=== PATIENT | male | born 1940 | race Hispanic/Latino ===

== ENCOUNTER 2017-11-03 07:45 | Emergency (ER) | payer OTHER ==
--- NOTE | 2017-11-03 08:37 | RAD REPORT ---
EXAM DESCRIPTION: CT - Head Brain Wo Cont - 11/03/2017 8:30 am CLINICAL HISTORY: Dizziness COMPARISON: 2013 TECHNIQUE: Computed axial tomography of the head was obtained. IV contrast was not requested. All CT scans are performed using dose optimization technique as appropriate and may include automated exposure control or mA/KV adjustment according to patient size. FINDINGS: An intracranial bleed is not seen . The ventricles are normal in caliber. No extra-axial fluid collection is noted. 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 Cerebral atrophy is noted. Fluid within the sinuses/ mastoids is not seen. IMPRESSION: No acute intracranial abnormality is seen. If patient's symptoms persist MRI of the bra in would be recommended.
[2017-11-03 08:48] LABS: Absolute Lymphocytes (CBC) 2.1 K/uL (0.7-4.9); Absolute Monocytes 0.4 K/uL (0.1-1.3); Absolute Neutrophil 6.4 K/uL (1.8-8.0); Basophils % 0.5 % (0-1.3); Hematocrit 45.5 % (39.6-49.0); MCH 31.7 pg (27.0-35.0); MCV 90.4 fL (80-100); MPV 9.3 fL (7.6-11.3); Monocytes % 4.6 % (3.3-12.3); RBC Red Blood Cell Count 5.03 M/uL (4.33-5.43)
[2017-11-03 09:00] LABS: Protime INR 0.93
[2017-11-03 09:04] LABS: Albumin 4.3 g/dL (3.2-5.5); Bilirubin Direct 0.1 mg/dL (0-0.2); Bilirubin Total 0.5 mg/dL (0.3-1.2); Magnesium 1.5 mg/dL (1.8-2.5); Protein, Total 7.8 g/dL (6.0-8.3)
[2017-11-03 09:05] LABS: CKMB Creatine Kinase MB 1.9 ng/ml (0.3-4.0)
--- NOTE | 2017-11-03 09:09 | RAD REPORT ---
EXAM DESCRIPTION: MRI - Brain Wo Cont - 11/03/2017 8:55 am CLINICAL HISTORY: Dizziness COMPARISON: 2007 MRI TECHNIQUE: Axial, sagittal, and coronal magnetic images of the brain were obtained. Contrast was not requested FINDINGS: 3 centimeter area of abnormal signal within the right cerebellum is compatible with an old infarct. Mild to moderate signal within periventricular, deep and subcortical white matter likely re present ischemic changes secondary to small vessel disease. Diffusion-weighted/ADC mapping does not reveal evidence of acute infarction. The ventricles are normal caliber. An extra-axial fluid collection is not present The sinuses and mastoids are clear. IMPRESSION: Old right cerebellar infarct. No acute intracranial abnormality is seen
--- NOTE | 2017-11-03 09:10 | RAD REPORT ---
EXAM DESCRIPTION: Yossi Single View11/03/2017 8:30 am CLINICAL HISTORY: Cough COMPARISON: 2014 FINDINGS: A 10 millimeter nodular opacity overlies the left base. Right lung appears clear the hear t is normal size IMPRESSION: A 10 millimeter nodular opacity overlying the left base may represent a nipple shadow or pulmonary nodule. It is recommended that the patient have frontal and oblique views of the chest wit h a left nipple marker for further evaluation
[2017-11-03] MEDS ORDERED: FAMOTIDINE 20 MG/2 ML VIAL IV ONE (09:26)
[2017-11-03] MEDS ORDERED: ONDANSETRON 4 MG/2 ML VIAL ONE (09:26)
[2017-11-03] MEDS ORDERED: MAGNESIUM SULFATE 1 gm IVPB 1 GM/100 ML BAG IV ONE (09:26)
[2017-11-03] MEDS ORDERED: ASPIRIN 81 MG CHEWABLE TABLET ONE (09:26)
[2017-11-03] MEDS ORDERED: NA CHLORIDE 0.9% 1,000 ML ONE (09:26)
[2017-11-03] MEDS ORDERED: MECLIZINE HCL 12.5 MG TAB ONE (09:26)
[2017-11-03] MEDS ORDERED: NA CHLORIDE 0.9% 500 ML ONE (09:26)
[2017-11-03 10:16] LABS: Urine Blood NEGATIVE (NEG); Urine Glucose NEGATIVE (NEG); Urine Protein NEGATIVE (NEG); Urine Specific Gravity 1.025 (1.005-1.030); Urine pH 5.5 (5.0-7.0)
--- NOTE | 2017-11-03 10:21 | RAD REPORT ---
EXAM DESCRIPTION: VASCarotid Artery Bilateral11/03/2017 9:31 am CLINICAL HISTORY: Syncope COMPARISON: None FINDINGS: The velocity of the right internal carotid artery equals 74 cm/sec. The right ICA/CCA rati o 0.9 The velocity of the left internal carotid artery equals 94 cm/sec. The left ICA/CCA ratio 1 Mild to moderate plaque is present within the carotid arteries. The vertebral arteries demonstrate antegrade flow IMPRESSION: Mild to moderate plaque within the carotid arteries without evidence of a hemodynamicall y significant stenosis
--- NOTE | 2017-11-03 10:46 | EDPHYS ---
Physician Documentation [facility] Name: Gerald Lui Age: 77 yrs Sex: Male : 1940 Arrival Date: 11/03/2017 Time: 07:49 Bed 5 Private MD: None, None ED Physician Ezio Stanley HPI: 11/03 08:14 This 77 yrs old Male presents to ER via Ambulatory with complaints of prem Nausea/Vomiting, Dizziness. 08:14 The patient presents to the emergency department with nausea, vomiting, that is prem intermittent. Onset: The symptoms/episode began/occurred 3 day(s) ago. Possible causes: unknown. The symptoms are aggravated by nothing. The symptoms are alleviated by remaining still. Associated signs and symptoms: Pertinent positives: nausea, vomiting. Severity of symptoms: At their worst the symptoms were mild in the emergency department the symptoms are unchanged. The patient has experienced similar episodes in the past, a few times. Historical: - Allergies: 08:09 No Known Allergies; sv - Home Meds: 08:09 glimepiride 4 mg Oral tab 1 tab once daily [Active]; lisinopril 2.5 mg Oral tab 1 tab sv once daily [Active]; Metformin Oral [Active]; latonoprost [Active]; Centrum Silver oral oral [Active]; - PMHx: 08:09 Diabetes - NIDDM; Hypertension; High Cholesterol; sv - PSHx: 08:09 Appendectomy; sv - Immunization history:: Adult Immunizations up to date. - Social history:: Smoking status: Patient/guardian denies using tobacco. ROS: 08:19 Constitutional: Negative for fever, chills, and weight loss, Eyes: Negative for injury, prem pain, redness, and discharge, ENT: Negative for injury, pain, and discharge, Neck: Negative for injury, pain, and swelling, Cardiovascular: Negative for chest pain, palpitations, and edema, Respiratory: Negative for shortness of breath, cough, wheezing, and pleuritic chest pain, Back: Negative for injury and pain, : Negative for injury, bleeding, discharge, and swelling, MS/Extremity: Negative for injury and deformity, Skin: Negative for injury, rash, and discoloration, Neuro: Negative for headache, weakness, numbness, tingling, and seizure, Psych: Negative for depression, anxiety, suicide ideation, homicidal ideation, and hallucinations, Allergy/Immunology: Negative for hives, rash, and allergies, Endocrine: Negative for neck swelling, polydipsia, polyuria, polyphagia, and marked weight changes, Hematologic/Lymphatic: Negative for swollen nodes, abnormal bleeding, and unusual bruising. 08:19 Abdomen/GI: Positive for abdominal pain, nausea and vomiting. Exam: 08:19 Constitutional: This is a well developed, well nourished patient who is awake, alert, prem and in no acute distress. Head/Face: Normocephalic, atraumatic. Eyes: Pupils equal round and reactive to light, extra-ocular motions intact. Lids and lashes normal. Conjunctiva and sclera are non-icteric and not injected. Cornea within normal limits. Periorbital areas with no swelling, redness, or edema. ENT: Nares patent. No nasal discharge, no septal abnormalities noted. Tympanic membranes are normal and external auditory canals are clear. Oropharynx with no redness, swelling, or masses, exudates, or evidence of obstruction, uvula midline. Mucous membranes moist. Neck: Trachea midline, no thyromegaly or masses palpated, and no cervical lymphadenopathy. Supple, full range of motion without nuchal rigidity, or vertebral point tenderness. No Meningismus. Chest/axilla: Normal chest wall appearance and motion. Nontender with no deformity. No lesions are appreciated. Cardiovascular: Regular rate and rhythm with a normal S1 and S2. No gallops, murmurs, or rubs. Normal PMI, no JVD. No pulse deficits. Respiratory: Lungs have equal breath sounds bilaterally, clear to auscultation and percussion. No rales, rhonchi or wheezes noted. No increased work of breathing, no retractions or nasal flaring. Abdomen/GI: Soft, non-tender, with normal bowel sounds. No distension or tympany. No guarding or rebound. No evidence of tenderness throughout. Back: No spinal tenderness. No costovertebral tenderness. Full range of motion. Male : Normal genitalia with no discharge or lesions. Skin: Warm, dry with normal turgor. Normal color with no rashes, no lesions, and no evidence of cellulitis. MS/ Extremity: Pulses equal, no cyanosis. Neurovascular intact. Full, normal range of motion. Neuro: Awake and alert, GCS 15, oriented to person, place, time, and situation. Cranial nerves II-XII grossly intact. Motor strength 5/5 in all extremities. Sensory grossly intact. Cerebellar exam normal. Normal gait. Psych: Awake, alert, with orientation to person, place and time. Behavior, mood, and affect are within normal limits. Vital Signs: 08:09 BP 118 / 67; Pulse 59; Resp 18; Temp 98.7; Pulse Ox 98% ; Weight 81.65 kg; Pain 0/10; sv 10:00 BP 139 / 66; Pulse 52; Resp 13; Pulse Ox 99% on R/A; Pain 0/10; ch 11:27 BP 132 / 88; Pulse 54; Resp 16; Temp 98.3; Pulse Ox 99% on R/A; Pain 0/10; ch MDM: 07:[address] [facility] 08:20 Data reviewed: vital signs, nurses notes, lab test result(s), EKG, radiologic studies, [facility] CT scan, doppler, MRI, plain films. 11/03 07:54 Order name: Basic Metabolic Panel; Complete Time: 09:13 [facility] 11/03 07:54 Order name: BNP; Complete Time: 09:13 [facility] 11/03 07:54 Order name: CBC with Diff; Complete Time: 09:13 [facility] 11/03 07:54 Order name: Ckmb; Complete Time: 09:13 [facility] 11/03 07:54 Order name: CPK; Complete Time: 09:13 [facility] 11/03 07:54 Order name: LFT's; Complete Time: 09:13 [facility] 11/03 07:54 Order name: Magnesium; Complete Time: 09:13 [facility] 11/03 07:54 Order name: PT-INR; Complete Time: 09:13 [facility] 11/03 07:54 Order name: Ptt, Activated; Complete Time: 09:13 [facility] 11/03 07:54 Order name: Troponin (emerg Dept Use Only); Complete Time: 09:13 [facility] 11/03 07:54 Order name: XRAY Chest (1 view); Complete Time: 09:13 [facility] 11/03 07:54 Order name: Lipase; Complete Time: 09:13 [facility] 11/03 07:54 Order name: Urine Culture [facility] 11/03 10:02 Order name: Urine Dipstick--Ancillary (enter results); Complete Time: 10:43 ag 11/03 07:54 Order name: EKG; Complete Time: 07:55 [facility] 11/03 07:54 Order name: Cardiac monitoring; Complete Time: 10:26 [facility] 11/03 07:54 Order name: EKG - Nurse/Tech; Complete Time: 09:09 [facility] 11/03 07:54 Order name: IV Saline Lock; Complete Time: 09:09 [facility] 11/03 07:54 Order name: Labs collected and sent; Complete Time: 09:09 [facility] 11/03 07:54 Order name: O2 Per Protocol; Complete Time: 08:12 [facility] 11/03 07:54 Order name: CT Head Brain wo Cont; Complete Time: 09:13 [facility] 11/03 08:14 Order name: Brain Wo Cont MRI; Complete Time: 09:13 [facility] 11/03 08:14 Order name: US Carotid Artery Bilateral; Complete Time: 10:43 [facility] 11/03 07:54 Order name: O2 Sat Monitoring; Complete Time: 08:12 [facility] 11/03 07:54 Order name: Urine Dipstick-Ancillary (obtain specimen); Complete Time: 10:17 [facility] Administered Medications: 09:45 Drug: NS 0.9% 500 ml Route: IV; Rate: bolus; Site: right antecubital; ch 10:25 Follow up: IV Status: Completed infusion; IV Intake: 500ml ch 09:45 Drug: NS 0.9% 1000 ml Route: IV; Rate: 125 ml/hr; Site: right antecubital; ch 09:45 Drug: Magnesium Sulfate 1 grams Route: IVPB; Infused Over: 1 hrs; Site: right ch antecubital; 09:45 Drug: Aspirin 162 mg Route: PO; ch 10:25 Follow up: Response: No adverse reaction; Marked relief of symptoms ch 09:45 Drug: Meclizine 25 mg Route: PO; ch 10:25 Follow up: Response: No adverse reaction ch 09:50 Drug: Pepcid 20 mg Route: IVP; Site: right antecubital; ch 10:26 Follow up: Response: No adverse reaction; Marked relief of symptoms Disposition: 11/03/17 10:46 Discharged to Home. Impression: Nausea and vomiting, Dizziness and giddiness, Type 2 diabetes mellitus, Vertiginous syndromes in diseases classified elsewhere, unspecified ear, Hypomagnesemia. - Condition is Stable. - Discharge Instructions: Benign Positional Vertigo, Type 2 Diabetes Mellitus, Adult, Dizziness, Hypomagnesemia, Nausea and Vomiting, Vertigo, Vertigo, [id number], Aspirin and Your Heart, Type 2 Diabetes Mellitus, Adult, Aook-pi-Wibu, Dizziness, Bzrx-em-[id number]. - Prescriptions for Meclizine 25 mg Oral Tablet - take 1 tablet by ORAL route every 8 hours As needed; 30 tablet. Pepcid 20 mg Oral Tablet - take 1 tablet by ORAL route every 12 hours for 10 days; 20 tablet. Zofran 4 mg Oral Tablet - take 1 tablet by ORAL route every 12 hours As needed; 20 tablet. - Medication Reconciliation Form, Thank You Letter, Antibiotic Education, Prescription Opioid Use form. - Follow up: Private Physician; When: 2 - 3 days; Reason: Recheck today's complaints, Continuance of care, Re-evaluation by your physician. Follow up: Presley Diaz MD; When: 2 - 3 days; Reason: Recheck today's complaints, Re-evaluation by your physician. - Problem is new. - Symptoms have improved. Signatures: Dispatcher [employer] EDPat Camilo RN RN ch Verde, Stephanie, RN RN sv Anderson, Corey, MD MD cha Corrections: (The following items were deleted from the chart) 10:47 10:46 11/03/2017 10:46 Discharged to Home. Impression: Nausea and vomiting; Dizziness prem and giddiness; Type 2 diabetes mellitus; Vertiginous syndromes in diseases classified elsewhere, unspecified ear. Condition is Stable. Forms are Medication Reconciliation Form, Thank You Letter, Antibiotic Education, Prescription Opioid Use. Follow up: Private Physician; When: 2 - 3 days; Reason: Recheck today's complaints, Continuance of care, Re-evaluation by your physician. Follow up: Presley Diaz; When: 2 - 3 days; Reason: Recheck today's complaints, Re-evaluation by your physician. Problem is new. Symptoms have improved. prem 11:55 10:47 11/03/2017 10:46 Discharged to Home. Impression: Nausea and vomiting; Dizziness ch and giddiness; Type 2 diabetes mellitus; Vertiginous syndromes in diseases classified elsewhere, unspecified ear; Hypomagnesemia. Condition is Stable. Discharge Instructions: Benign Positional Vertigo, Type 2 Diabetes Mellitus, Adult, Dizziness, Nausea and Vomiting, Vertigo, Vertigo, [id number], Aspirin and Your Heart, Type 2 Diabetes Mellitus, Adult, Auiq-eq-Gnmh, Dizziness, Aiab-wc-Pbnr. Prescriptions for Meclizine 25 mg Oral Tablet - take 1 tablet by ORAL route every 8 hours As needed; 30 tablet, Pepcid 20 mg Oral Tablet - take 1 tablet by ORAL route every 12 hours for 10 days; 20 tablet, Zofran 4 mg Oral Tablet - take 1 tablet by ORAL route every 12 hours As needed; 20 tablet. and Forms are Medication Reconciliation Form, Thank You Letter, Antibiotic Education, Prescription Opioid Use. Follow up: Private Physician; When: 2 - 3 days; Reason: Recheck today's complaints, Continuance of care, Re-evaluation by your physician. Follow up: Presley Diaz; When: 2 - 3 days; Reason: Recheck today's complaints, Re-evaluation by your physician. Problem is new. Symptoms have improved. prem
--- NOTE | 2017-11-03 10:46 | ER ---
Nurse's Notes [facility] Name: Gerald Lui Age: 77 yrs Sex: Male : 1940 Arrival Date: 11/03/2017 Time: 07:49 Bed 5 Private MD: None, None Diagnosis: Nausea and vomiting;Dizziness and giddiness;Type 2 diabetes mellitus;Vertiginous syndromes in diseases classified elsewhere, unspecified ear;Hypomagnesemia Presentation: 11/03 07:59 Presenting complaint: Patient states: dizziness and nausea x1 day. Denies sv vomiting/diarrhea/constipation/abd pain. [id number]. Transition of care: patient was not received from another setting of care. Onset of symptoms was November 02, 2017. 07:59 Method Of Arrival: Ambulatory sv 07:59 Acuity: JASS 3 sv 08:00 Risk Assessment: Do you want to hurt yourself or someone else? Patient reports no sv desire to harm self or others. Initial Sepsis Screen: Does the patient meet any 2 criteria? No. Patient's initial sepsis screen is negative. Does the patient have a suspected source of infection? No. Patient's initial sepsis screen is negative. Care prior to arrival: None. Historical: - Allergies: 08:09 No Known Allergies; sv - Home Meds: 08:09 glimepiride 4 mg Oral tab 1 tab once daily [Active]; lisinopril 2.5 mg Oral tab 1 tab sv once daily [Active]; Metformin Oral [Active]; latonoprost [Active]; Centrum Silver oral oral [Active]; - PMHx: 08:09 Diabetes - NIDDM; Hypertension; High Cholesterol; sv - PSHx: 08:09 Appendectomy; sv - Immunization history:: Adult Immunizations up to date. - Social history:: Smoking status: Patient/guardian denies using tobacco. Screenin:10 Abuse screen: Denies threats or abuse. Denies injuries from another. Nutritional sv screening: No deficits noted. Tuberculosis screening: No symptoms or risk factors identified. Fall Risk None identified. Assessment: 08:05 General: Appears in no apparent distress. comfortable, Behavior is calm, cooperative, sv appropriate for age. Pain: Denies pain. Neuro: Level of Consciousness is awake, alert, obeys commands, Oriented to person, place, time, situation, Moves all extremities. Full function Gait is steady, Speech is normal. Respiratory: Respiratory effort is even, unlabored, Respiratory pattern is regular, symmetrical. GI: Abdomen is flat, Reports nausea. Derm: Skin is normal. Musculoskeletal: Range of motion: intact in all extremities. 10:17 Reassessment: Patient appears in no apparent distress at this time. Patient and/or ch family updated on plan of care and expected duration. Pain level reassessed. Patient is alert, oriented x 3, equal unlabored respirations, skin warm/dry/pink. Neuro: Level of Consciousness is awake, alert, obeys commands, Oriented to person, place, time, situation, Concession Manager are equal bilaterally Moves all extremities. Full function Gait is steady, Speech is normal, Facial symmetry appears normal, Facial symmetry: tongue is midline, Pupils are PERRLA, Reports dizziness. Cardiovascular: Heart tones S1 S2 present Capillary refill < 3 seconds in bilateral fingers toes Clubbing of nail beds is absent Pulses are all present. Edema is absent. Respiratory: Airway is patent Trachea midline Respiratory effort is even, unlabored, Respiratory pattern is regular, Breath sounds are clear bilaterally. GI: No signs and/or symptoms were reported involving the gastrointestinal system. Abdomen is flat, non-distended, Bowel sounds present X 4 quads. Abd is soft and non tender X 4 quads. : No signs and/or symptoms were reported regarding the genitourinary system. Derm: Skin is pink, warm \T\ dry. 11:27 Reassessment: Patient appears in no apparent distress at this time. Patient and/or ch family updated on plan of care and expected duration. Pain level reassessed. Patient is alert, oriented x 3, equal unlabored respirations, skin warm/dry/pink. Patient states feeling better. Patient states symptoms have improved. 11:29 Reassessment: ERP STATES PT IS READY FOR DISCHARGE. PT WILL BE DISCHARGED NOW. Vital Signs: 08:09 BP 118 / 67; Pulse 59; Resp 18; Temp 98.7; Pulse Ox 98% ; Weight 81.65 kg; Pain 0/10; sv 10:00 BP 139 / 66; Pulse 52; Resp 13; Pulse Ox 99% on R/A; Pain 0/10; ch 11:27 BP 132 / 88; Pulse 54; Resp 16; Temp 98.3; Pulse Ox 99% on R/A; Pain 0/10; ED Course: 07:49 Patient arrived in ED. sb2 07:49 None, None is Private Physician. sb2 07:52 Ezio Stanley MD is Attending Physician. prem 08:06 Alexsandra Gould, RN is Primary Nurse. sv 08:08 Triage completed. sv 08:10 ED physician to see patient. sv 08:10 Arm band placed on right wrist. sv 08:10 Patient has correct armband on for positive identification. Placed in gown. Bed in low sv position. Call light in reach. Adult w/ patient. Pulse ox on. NIBP on. Door closed. Head of bed elevated. 08:20 Initial lab(s) drawn, by ED staff, sent to lab. Inserted saline lock: 20 gauge in right sv antecubital area, using aseptic technique. Blood collected. 08:25 X-ray completed. Portable x-ray completed in exam room. Patient tolerated procedure jb2 well. 08:[address] via wheelchair. sv 08:29 CT Head Brain wo Cont In Process Unspecified. EDMS 08:29 CT completed. Patient tolerated procedure well. Patient moved to CT via wheelchair. sj Patient moved to MRI Patient moved back from CT. 08:30 XRAY Chest (1 view) In Process Unspecified. EDMS 08:48 Patient moved to MRI via wheelchair. lc 08:55 Brain Wo Cont MRI In Process Unspecified. EDMS 09:03 Patient taken to ultrasound. via wheelchair. aa4 09:10 Report given to Pat DELUCA. sv 09:30 US Carotid Artery Bilateral In Process Unspecified. EDMS 09:30 Ultrasound completed. Patient tolerated well. Patient moved back from ultrasound. aa4 10:00 No apparent distress. Resting quietly. ch 10:00 No provider procedures requiring assistance completed. IV discontinued, intact, ch bleeding controlled, No redness/swelling at site. Pressure dressing applied. 10:45 Presley Diaz MD is Referral Physician. prem 11:27 Primary Nurse role handed off by Alexsandra Gould, YOSI 11:27 Pat Kaba, RN is Primary Nurse. ch Administered Medications: 09:45 Drug: NS 0.9% 500 ml Route: IV; Rate: bolus; Site: right antecubital; ch 10:25 Follow up: IV Status: Completed infusion; IV Intake: 500ml ch 09:45 Drug: NS 0.9% 1000 ml Route: IV; Rate: 125 ml/hr; Site: right antecubital; ch 09:45 Drug: Magnesium Sulfate 1 grams Route: IVPB; Infused Over: 1 hrs; Site: right ch antecubital; 09:45 Drug: Aspirin 162 mg Route: PO; ch 10:25 Follow up: Response: No adverse reaction; Marked relief of symptoms ch 09:45 Drug: Meclizine 25 mg Route: PO; ch 10:25 Follow up: Response: No adverse reaction ch 09:50 Drug: Pepcid 20 mg Route: IVP; Site: right antecubital; ch 10:26 Follow up: Response: No adverse reaction; Marked relief of symptoms ch Intake: 10:25 IV: 500ml; Total: 500ml. ch Outcome: 10:46 Discharge ordered by . [facility] 11:54 Discharged to home via wheelchair. ch 11:54 Condition: improved 11:54 Discharge instructions given to patient, family, Instructed on discharge instructions, follow up and referral plans. medication usage, Demonstrated understanding of instructions, follow-up care, medications, [employer] TRANSLATES FOR ME. 11:55 Patient left the ED. ch Signatures: Dispatcher [employer] EDPat Camilo RN RN ch Verde, Stephanie, RN RN sv Anderson, Corey, MD MD cha Buechter, Jesse jb2 Ana Maria Matthew Susan sj Frazier, Amanda aa4 Thao Mendoza sb2
[2017-11-03 12:01] VITALS: O2SAT 99
[2017-11-03 12:03] VITALS: BP 132/88; TEMP 98.3
--- NOTE | 2017-11-03 14:42 | EKG ---
Test Date: 2017-11-03 Test Time: 08:18:10 Meat Team Lead: EDGARDO MEASUREMENT RESULTS: Intervals: Rate: 55 [place]: 160 QRSD: 104 QT: 414 QTc: 396 [place]: P: 64 [place]: 160 QRS: 72 T: 43 INTERPRETIVE STATEMENTS: Sinus bradycardia Otherwise normal ECG Compared to ECG 11/14/2013 07:59:55 Sinus rhythm no longer present Electronically Signed On 11-03-17 14:40:05 CDT by Adam Anderson
== END 2017-11-03 11:55 | disposition home or self-care (01) ==
LOC: ER 07:45
DX: R42 Dizziness and giddiness (principal); E83.42 Hypomagnesemia; E11.9 Type 2 diabetes mellitus without complications; H82.9 Vertiginous syndromes in diseases classified elsewhere, unspecified ear; I10 Essential (primary) hypertension; E78.00 Pure hypercholesterolemia, unspecified
CPT/HCPCS: 36415; 70450; 70551; 71045; 80048; 80076; 81003; 82550; 82553; 83690; 83735; 83880; 84484; 85025; 85610; 85730; 87086; 87088; 93005; 93880; J2405; J3475; J7030; 96361; 96374; 96375; 99284

== ENCOUNTER 2018-04-06 10:56 | Emergency (ER) | payer OTHER ==
--- NOTE | 2018-04-06 11:54 | ER ---
Nurse's Notes [facility] Name: Gerald Lui Age: 77 yrs Sex: Male : 1940 Arrival Date: 04/06/2018 Time: 10:59 Bed 10 Private MD: None, None Diagnosis: Dental caries;Dental caries, unspecified Presentation: 04/06 11:06 Presenting complaint: Patient states: " Mouth pain x 2 days, difficulty eating, reports ph pain in top, front gums, radiating into nasal area, denies fever.". Transition of care: patient was not received from another setting of care. Onset of symptoms was April 06, 2018. Risk Assessment: Do you want to hurt yourself or someone else? Patient reports no desire to harm self or others. Initial Sepsis Screen: Does the patient meet any 2 criteria? No. Patient's initial sepsis screen is negative. Does the patient have a suspected source of infection? No. Patient's initial sepsis screen is negative. Care prior to arrival: None. 11:06 Method Of Arrival: Ambulatory ph 11:06 Acuity: JASS 4 ph Historical: - Allergies: 11:08 No Known Allergies; ph - PMHx: 11:08 Diabetes - NIDDM; High Cholesterol; Hypertension; ph - PSHx: 11:08 Appendectomy; ph - Immunization history:: Adult Immunizations. - Social history:: Smoking status: Patient/guardian denies using tobacco. - Family history:: not pertinent. - Ebola Screening: : No symptoms or risks identified at this time. Screenin:18 Abuse screen: Denies threats or abuse. Denies injuries from another. Nutritional ph screening: No deficits noted. Tuberculosis screening: No symptoms or risk factors identified. Fall Risk None identified. Assessment: 11:16 General: Appears in no apparent distress. comfortable, slender, well groomed, Behavior ph is calm, cooperative, appropriate for age, Denies fever. Pain: Complains of pain in gums. Neuro: Level of Consciousness is awake, alert, obeys commands, Oriented to person, place, time, situation. Cardiovascular: Capillary refill < 3 seconds Patient's skin is warm and dry. Respiratory: Airway is patent Respiratory effort is even, unlabored, Respiratory pattern is regular, symmetrical. GI: Patient currently denies diarrhea, nausea, vomiting. EENT: Oral mucosa is moist. Dentures present. swelling noted to L upper gums when dentures removed. Derm: Skin is intact, is healthy with good turgor, Skin is pink, warm \\T\\ dry. Musculoskeletal: Circulation, motion, and sensation intact. Range of motion: intact in all extremities. 11:18 Reassessment: dentures placed in denture cup at bedside. ph Vital Signs: 11:08 BP 127 / 61; Pulse 70; Resp 18; Temp 97.1; Pulse Ox 100% on R/A; Weight 79.38 kg; Pain ph 10/10; ED Course: 10:59 Patient arrived in ED. sb2 10:59 None, None is Private Physician. sb2 11:07 Triage completed. ph 11:08 Arm band placed on. ph 11:16 Sarah Irene, RN is Primary Nurse. ph 11:18 Ezio Stanley MD is Attending Physician. prem 11:18 Patient has correct armband on for positive identification. Bed in low position. Call ph light in reach. Warm blanket given. 11:54 Cam Carmona DDS is Referral Physician. prem 12:05 No provider procedures requiring assistance completed. Patient did not have IV access hb during this emergency room visit. Administered Medications: 12:04 Drug: Augmentin 875 mg Route: PO; hb 12:04 Follow up: Response: Medication administered at discharge. hb 12:04 Drug: [place] 5 mg-325 mg 1 tabs Route: PO; hb 12:04 Follow up: Response: Medication administered at discharge. hb Outcome: 11:53 Discharge ordered by . prem 12:05 Discharged to home ambulatory, with family. hb 12:05 Condition: stable 12:05 Discharge instructions given to patient, family, Instructed on discharge instructions, follow up and referral plans. medication usage, Demonstrated understanding of instructions, follow-up care, medications, Prescriptions given X 2. 12:05 Patient left the ED. hb Signatures: Ezio Stanley MD MD cha Hall, Patricia, RN RN Jennifer Gustafson RN RN Thao Mendoza sb2
--- NOTE | 2018-04-06 11:54 | EDPHYS ---
Physician Documentation [facility] Name: Gerald Lui Age: 77 yrs Sex: Male : 1940 Arrival Date: 04/06/2018 Time: 10:59 Bed 10 Private MD: None, None ED Physician Ezio Stanley HPI: 04/06 11:47 This 77 yrs old Male presents to ER via Ambulatory with complaints of Mouth prem Problem. 11:47 The patient presents with pain, redness, swelling. The problem is located in the mouth prem and gums. Onset: The symptoms/episode began/occurred 3 day(s) ago. Duration: The symptoms are continuous, and are steadily getting worse. Modifying factors: The symptoms are alleviated by nothing, the symptoms are aggravated by chewing, cold fluids, food. Associated signs and symptoms: The patient has no apparent associated signs or symptoms. Severity of symptoms: At their worst the symptoms were mild, in the emergency department the symptoms are unchanged. The patient has experienced similar episodes in the past, a few times. Historical: - Allergies: 11:08 No Known Allergies; ph - PMHx: 11:08 Diabetes - NIDDM; High Cholesterol; Hypertension; ph - PSHx: 11:08 Appendectomy; ph - Immunization history:: Adult Immunizations. - Social history:: Smoking status: Patient/guardian denies using tobacco. - Family history:: not pertinent. - Ebola Screening: : No symptoms or risks identified at this time. ROS: 11:47 Constitutional: Negative for fever, chills, and weight loss, Eyes: Negative for injury, prem pain, redness, and discharge, Neck: Negative for injury, pain, and swelling, Cardiovascular: Negative for chest pain, palpitations, and edema, Respiratory: Negative for shortness of breath, cough, wheezing, and pleuritic chest pain, Abdomen/GI: Negative for abdominal pain, nausea, vomiting, diarrhea, and constipation, Back: Negative for injury and pain, : Negative for injury, bleeding, discharge, and swelling, MS/Extremity: Negative for injury and deformity, Skin: Negative for injury, rash, and discoloration, Neuro: Negative for headache, weakness, numbness, tingling, and seizure, Psych: Negative for depression, anxiety, suicide ideation, homicidal ideation, and hallucinations, Allergy/Immunology: Negative for hives, rash, and allergies, Endocrine: Negative for neck swelling, polydipsia, polyuria, polyphagia, and marked weight changes, Hematologic/Lymphatic: Negative for swollen nodes, abnormal bleeding, and unusual bruising. 11:47 ENT: Positive for dental pain. Exam: 11:47 Constitutional: This is a well developed, well nourished patient who is awake, alert, prem and in no acute distress. Head/Face: Normocephalic, atraumatic. Eyes: Pupils equal round and reactive to light, extra-ocular motions intact. Lids and lashes normal. Conjunctiva and sclera are non-icteric and not injected. Cornea within normal limits. Periorbital areas with no swelling, redness, or edema. Neck: Trachea midline, no thyromegaly or masses palpated, and no cervical lymphadenopathy. Supple, full range of motion without nuchal rigidity, or vertebral point tenderness. No Meningismus. Chest/axilla: Normal chest wall appearance and motion. Nontender with no deformity. No lesions are appreciated. Cardiovascular: Regular rate and rhythm with a normal S1 and S2. No gallops, murmurs, or rubs. Normal PMI, no JVD. No pulse deficits. Respiratory: Lungs have equal breath sounds bilaterally, clear to auscultation and percussion. No rales, rhonchi or wheezes noted. No increased work of breathing, no retractions or nasal flaring. Abdomen/GI: Soft, non-tender, with normal bowel sounds. No distension or tympany. No guarding or rebound. No evidence of tenderness throughout. Back: No spinal tenderness. No costovertebral tenderness. Full range of motion. Male : Normal genitalia with no discharge or lesions. Skin: Warm, dry with normal turgor. Normal color with no rashes, no lesions, and no evidence of cellulitis. MS/ Extremity: Pulses equal, no cyanosis. Neurovascular intact. Full, normal range of motion. Neuro: Awake and alert, GCS 15, oriented to person, place, time, and situation. Cranial nerves II-XII grossly intact. Motor strength 5/5 in all extremities. Sensory grossly intact. Cerebellar exam normal. Normal gait. Psych: Awake, alert, with orientation to person, place and time. Behavior, mood, and affect are within normal limits. 11:47 ENT: Mouth: Gums: noted to have cellulitis, reddened, swollen, on the upper right first molar, upper right second bicuspid, upper left first bicuspid, upper left second bicuspid and upper left first molar. Vital Signs: 11:08 BP 127 / 61; Pulse 70; Resp 18; Temp 97.1; Pulse Ox 100% on R/A; Weight 79.38 kg; Pain ph 10/10; MDM: 11:19 Patient medically screened. [facility] 11:52 Data reviewed: vital signs, nurses notes. [facility] Administered Medications: 12:04 Drug: Augmentin 875 mg Route: PO; hb 12:04 Follow up: Response: Medication administered at discharge. hb 12:04 Drug: [place] 5 mg-325 mg 1 tabs Route: PO; 12:04 Follow up: Response: Medication administered at discharge. Disposition: 04/06/18 11:53 Discharged to Home. Impression: Dental caries, Dental caries, unspecified. - Condition is Stable. - Discharge Instructions: Dental Abscess, Dental Caries, Adult, Dental Pain, Dental Pain, [id number], Diet and Dental Disease, Dental Caries, [id number]. - Prescriptions for Augmentin 875- 125 mg Oral Tablet - take 1 tablet by ORAL route every 12 hours for 10 days; 20 tablet. Tylenol- Codeine #3 300-30 mg Oral Tablet - take 2 tablet by ORAL route every 6 hours As needed; 30 tablet. - Medication Reconciliation Form, Thank You Letter, Antibiotic Education, Prescription Opioid Use form. - Follow up: Private Physician; When: 2 - 3 days; Reason: Recheck today's complaints, Continuance of care, Re-evaluation by your physician. Follow up: Cam Carmona DDS; When: 2 - 3 days; Reason: Recheck today's complaints, Continuance of care, Re-evaluation by your physician. - Problem is new. - Symptoms have improved. Signatures: Ezio Stanley MD MD cha Hall, Patricia, RN RN ph Jennifer Gustafson RN RN Corrections: (The following items were deleted from the chart) 11:55 11:53 04/06/2018 11:53 Discharged to Home. Impression: Dental caries; Dental caries, prem unspecified. Condition is Stable. Forms are Medication Reconciliation Form, Thank You Letter, Antibiotic Education, Prescription Opioid Use. Follow up: Private Physician; When: 2 - 3 days; Reason: Recheck today's complaints, Continuance of care, Re-evaluation by your physician. Problem is new. Symptoms have improved. [facility] 12:05 11:55 04/06/2018 11:53 Discharged to Home. Impression: Dental caries; Dental caries, hb unspecified. Condition is Stable. Forms are Medication Reconciliation Form, Thank You Letter, Antibiotic Education, Prescription Opioid Use. Follow up: Private Physician; When: 2 - 3 days; Reason: Recheck today's complaints, Continuance of care, Re-evaluation by your physician. Follow up: Cam Carmona; When: 2 - 3 days; Reason: Recheck today's complaints, Continuance of care, Re-evaluation by your physician. Problem is new. Symptoms have improved. [facility]
[2018-04-06] MEDS ORDERED: HYDROCODONE/APAP 5/325 MG TAB ONE (12:08)
[2018-04-06] MEDS ORDERED: AMOX/K CLAV 875 MG TAB ONE (12:08)
[2018-04-06] MEDS ORDERED: IPRATROPIUM BROM 0.5MG/2.5ML ONE (12:15)
[2018-04-06] MEDS ORDERED: ALBUTEROL 2.5 MG/3 ML NEB SOL ONE (12:15)
== END 2018-04-06 12:05 | disposition home or self-care (01) ==
LOC: ER 10:56
DX: K02.9 Dental caries, unspecified (principal); K12.2 Cellulitis and abscess of mouth
CPT/HCPCS: 99283

== ENCOUNTER 2018-12-11 15:45 | Emergency (ER) | payer OTHER ==
[2018-12-11 16:56] LABS: Absolute Lymphocytes (CBC) 2.2 K/uL (0.7-4.9); Basophils % 0.6 % (0-1.3); Eosinophils % 7.3 % (0-4.4); Hematocrit 45.7 % (39.6-49.0); Lymphocytes % 25.4 % (15.3-44.8); MPV 9.8 fL (7.6-11.3); Monocytes % 5.1 % (3.3-12.3); RBC Red Blood Cell Count 4.98 M/uL (4.33-5.43)
[2018-12-11 17:06] LABS: Potassium 4.3 mmol/L (3.5-5.1)
--- NOTE | 2018-12-11 17:27 | RAD REPORT ---
EXAM DESCRIPTION: CT - Head Brain Wo Cont - 12/11/2018 4:47 pm CLINICAL HISTORY: Headache/seizure COMPARISON: October 2017 MR TECHNIQUE: Computed axial tomography of the head was obtained. IV contrast was not requested. All CT scans are performed using dose optimization technique as appropriate and may include automated exposure control or mA/KV adjustment according to patient size. FINDINGS: An intracranial bleed is not seen . The ventricles are normal in caliber. No extra-axial fluid collection is noted. Old right cerebellar infarct. Fluid within the sinuses/ mastoids is not seen. IMPRESSION: No acute intracranial abnormality is seen. If patient's symptoms persist MRI of the bra in would be recommended.
[2018-12-11] MEDS ORDERED: NA CHLORIDE 0.9% 500 ML ONE (17:29)
--- NOTE | 2018-12-11 17:46 | ER ---
Nurse's Notes [facility] Name: Gerald Lui Age: 78 yrs Sex: Male : 1940 Arrival Date: 12/11/2018 Time: 15:47 Bed 20 Private MD: Diagnosis: Hyperglycemia, unspecified Presentation: 12/11 16:11 Presenting complaint: Home BGL >400. Daughter at bedside reports seizure- activity 3 hb days ago, Pt denies pain/dizziness/numbness today. Transition of care: patient was not received from another setting of care. Onset of symptoms was December 11, 2018. Risk Assessment: Do you want to hurt yourself or someone else? Patient reports no desire to harm self or others. Initial Sepsis Screen: Does the patient meet any 2 criteria? No. Patient's initial sepsis screen is negative. Does the patient have a suspected source of infection? No. Patient's initial sepsis screen is negative. Care prior to arrival: None. 16:11 Method Of Arrival: Ambulatory hb 16:11 Acuity: JASS 3 hb Historical: - Allergies: 16:11 No Known Allergies; hb - Home Meds: 16:11 carvedilol 12.5 mg Oral tab 1 tab 2 times per day [Active]; Centrum Silver Oral hb [Active]; glimepiride 4 mg Oral tab 1 tab once daily [Active]; latonoprost [Active]; lisinopril 2.5 mg Oral tab 1 tab once daily [Active]; Metformin Oral [Active]; - PMHx: 16:11 Diabetes - NIDDM; High Cholesterol; Hypertension; hb - PSHx: 16:11 Appendectomy; hb - Immunization history:: Adult Immunizations up to date. - Social history:: Smoking status: Patient/guardian denies using tobacco. - Ebola Screening: : No symptoms or risks identified at this time. Screenin:12 Abuse screen: Denies threats or abuse. Denies injuries from another. Nutritional hb screening: On. Tuberculosis screening: No symptoms or risk factors identified. 16:20 Fall Risk None identified. em Assessment: 16:20 General: Appears in no apparent distress. comfortable, Behavior is calm, cooperative, em Denies fever, reports sugar has been high, yesterday was 411 and this morning 362. Pain: Denies pain. Neuro: Level of Consciousness is awake, alert, obeys commands, Oriented to person, place, time, situation, Control Clerk Food [employer] Beverage are equal bilaterally Moves all extremities. Gait is steady, Speech is normal, Facial symmetry appears normal, Pupils are PERRLA, Denies difficulty swallowing, Seizure activity daughter reports sz activity 3 days ago, denies dizziness. Cardiovascular: Capillary refill < 3 seconds Patient's skin is warm and dry. Respiratory: Airway is patent Respiratory effort is even, unlabored, Respiratory pattern is regular, symmetrical. GI: Abdomen is flat, Abd is soft and non tender X 4 quads. Patient currently denies nausea, vomiting. Derm: Skin is intact, is healthy with good turgor, Skin is pink, warm \T\ dry. Musculoskeletal: Capillary refill < 3 seconds, Range of motion: intact in all extremities. 16:25 Reassessment: I agree with the assessment made by Rufino HUERTA. sg 17:36 Reassessment: Patient appears in no apparent distress at this time. Patient and/or em family updated on plan of care and expected duration. Pain level reassessed. Patient is alert, oriented x 3, equal unlabored respirations, skin warm/dry/pink. Patient denies pain at this time. Vital Signs: 16:09 BP 136 / 61; Pulse 62; Resp 16; Temp 98.2; Pulse Ox 100% on R/A; hb 17:37 BP 131 / 63; Pulse 52; Resp 18; Pulse Ox 100% on R/A; Pain 0/10; em ED Course: 15:47 Patient arrived in ED. mr 16:04 Jennifer Quiles FNP-C is [facility]. kb 16:04 Harrison Anglin MD is Attending Physician. kb 16:10 Arm band placed on. hb 16:12 Triage completed. hb 16:12 Patient has correct armband on for positive identification. Call light in reach. Side hb rails up X 1. 16:21 Rufino Riley LVN is Primary Nurse. em 16:40 Initial lab(s) drawn, by me, sent to lab. Inserted saline lock: 18 gauge in right em forearm, using aseptic technique. Blood collected. 16:46 CT completed. Patient tolerated procedure well. Patient moved back from CT. mw3 16:47 CT Head Brain wo Cont In Process Unspecified. EDMS 18:08 Assist provider with bone marrow aspiration. IV discontinued, intact, bleeding em controlled, No redness/swelling at site. Pressure dressing applied. Administered Medications: 17:16 Drug: NS 0.9% 500 ml Route: IV; Rate: bolus; Site: right forearm; em 18:04 Follow up: IV Status: Completed infusion; IV Intake: 500ml em Point of Care Testing: Blood Glucose: 16:09 Blood Glucose: 196 mg/dL; hb Ranges: Intake: 18:04 IV: 500ml; Total: 500ml. em Outcome: 17:46 Discharge ordered by . navi 18:08 Discharged to home ambulatory, with family. em 18:08 Condition: good 18:08 Discharge instructions given to patient, family, Instructed on discharge instructions, follow up and referral plans. Demonstrated understanding of instructions, follow-up care. 18:09 Patient left the ED. em Signatures: Dispatcher [employer] Jennifer Medina, MENTAL HEALTH CLINICIANArslanC KLEVER-Sergo Barnett RN RN Bisi mr Rufino Riley, PRINT MANAGER PRINT MANAGER em Jennifer Gustafson RN RN Ivon Gomes mw3 Corrections: (The following items were deleted from the chart) 16:27 16:11 Presenting complaint: Home BGL >400, malaise, and dizziness today hb hb
--- NOTE | 2018-12-11 17:47 | EDPHYS ---
Physician Documentation [facility] Name: Gerald Lui Age: 78 yrs Sex: Male : 1940 Arrival Date: 12/11/2018 Time: 15:47 Bed 20 Private MD: ED Physician Harrison Anglin HPI: 12/11 16:42 This 78 yrs old Male presents to ER via Ambulatory with complaints of High kb Blood Sugar. 16:42 The patient or guardian reports hyperglycemia. Onset: The symptoms/episode kb began/occurred yesterday. Associated signs and symptoms: Pertinent positives: None. Current symptoms: In the emergency department the patient's symptoms have improved. The patient has experienced similar episodes in the past. The patient has not recently seen a physician. Pt reports high blood sugar and headache. 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 Also reports that he had a seizure 2-3 days ago. Reports he has a history of seizures, but hasn't had one in a couple of years. . Historical: - Allergies: 16:11 No Known Allergies; hb - Home Meds: 16:11 carvedilol 12.5 mg Oral tab 1 tab 2 times per day [Active]; Centrum Silver Oral hb [Active]; glimepiride 4 mg Oral tab 1 tab once daily [Active]; latonoprost [Active]; lisinopril 2.5 mg Oral tab 1 tab once daily [Active]; Metformin Oral [Active]; - PMHx: 16:11 Diabetes - NIDDM; High Cholesterol; Hypertension; hb - PSHx: 16:11 Appendectomy; hb - Immunization history:: Adult Immunizations up to date. - Social history:: Smoking status: Patient/guardian denies using tobacco. - Ebola Screening: : No symptoms or risks identified at this time. ROS: 16:41 Constitutional: Negative for fever, chills, and weight loss, ENT: Negative for injury, kb pain, and discharge, Neck: Negative for injury, pain, and swelling, Cardiovascular: Negative for chest pain, palpitations, and edema, Respiratory: Negative for shortness of breath, cough, wheezing, and pleuritic chest pain, Abdomen/GI: Negative for abdominal pain, nausea, vomiting, diarrhea, and constipation, Back: Negative for injury and pain, : Negative for injury, bleeding, discharge, and swelling, MS/Extremity: Negative for injury and deformity, Skin: Negative for injury, rash, and discoloration. 16:41 Neuro: Positive for headache, seizure activity. Exam: 16:41 Constitutional: This is a well developed, well nourished patient who is awake, alert, kb and in no acute distress. Head/Face: Normocephalic, atraumatic. Eyes: Pupils equal round and reactive to light, extra-ocular motions intact. Lids and lashes normal. Conjunctiva and sclera are non-icteric and not injected. Cornea within normal limits. Periorbital areas with no swelling, redness, or edema. ENT: Nares patent. No nasal discharge, no septal abnormalities noted. Tympanic membranes are normal and external auditory canals are clear. Oropharynx with no redness, swelling, or masses, exudates, or evidence of obstruction, uvula midline. Mucous membranes moist. Neck: Trachea midline, no thyromegaly or masses palpated, and no cervical lymphadenopathy. Supple, full range of motion without nuchal rigidity, or vertebral point tenderness. No Meningismus. Chest/axilla: Normal chest wall appearance and motion. Nontender with no deformity. No lesions are appreciated. Cardiovascular: Regular rate and rhythm with a normal S1 and S2. No gallops, murmurs, or rubs. Normal PMI, no JVD. No pulse deficits. Respiratory: Lungs have equal breath sounds bilaterally, clear to auscultation and percussion. No rales, rhonchi or wheezes noted. No increased work of breathing, no retractions or nasal flaring. Abdomen/GI: Soft, non-tender, with normal bowel sounds. No distension or tympany. No guarding or rebound. No evidence of tenderness throughout. Back: No spinal tenderness. No costovertebral tenderness. Full range of motion. Skin: Warm, dry with normal turgor. Normal color with no rashes, no lesions, and no evidence of cellulitis. MS/ Extremity: Pulses equal, no cyanosis. Neurovascular intact. Full, normal range of motion. Neuro: Awake and alert, GCS 15, oriented to person, place, time, and situation. Cranial nerves II-XII grossly intact. Motor strength 5/5 in all extremities. Sensory grossly intact. Cerebellar exam normal. Normal gait. Vital Signs: 16:09 BP 136 / 61; Pulse 62; Resp 16; Temp 98.2; Pulse Ox 100% on R/A; hb 17:37 BP 131 / 63; Pulse 52; Resp 18; Pulse Ox 100% on R/A; Pain 0/10; em MDM: 16:05 Patient medically screened. kb 16:41 Data reviewed: vital signs, nurses notes. Data interpreted: Pulse oximetry: on room air kb is 100 %. Interpretation: normal. 17:46 Counseling: I had a detailed discussion with the patient and/or guardian regarding: the kb historical points, exam findings, and any diagnostic results supporting the discharge/admit diagnosis, lab results, radiology results, the need for outpatient follow up, a family practitioner, to return to the emergency department if symptoms worsen or persist or if there are any questions or concerns that arise at home. 12/11 16:10 Order name: Glucose, Ancillary Testing; Complete Time: 16:17 EDMS 12/11 16:18 Order name: CBC with Diff; Complete Time: 16:58 kb 12/11 16:18 Order name: Basic Metabolic Panel; Complete Time: 17:09 kb 12/11 16:18 Order name: IV Start; Complete Time: 16:48 kb 12/11 16:18 Order name: CT Head Brain wo Cont; Complete Time: 17:31 kb Administered Medications: 17:16 Drug: NS 0.9% 500 ml Route: IV; Rate: bolus; Site: right forearm; em 18:04 Follow up: IV Status: Completed infusion; IV Intake: 500ml em Point of Care Testing: Blood Glucose: 16:09 Blood Glucose: 196 mg/dL; hb Ranges: Critical Glucose Levels:Adult <50 mg/dl or >400 mg/dl <40 mg/dl or >180 mg/dl Disposition: 18:12 Co-signature as Attending Physician, Harrison Anglin MD. Disposition: 12/11/18 17:46 Discharged to Home. Impression: Hyperglycemia, unspecified. - Condition is Stable. - Discharge Instructions: Hyperglycemia, Iult-ty-Fkls, Type 2 Diabetes Mellitus, Diagnosis, Adult, [id number]. - Medication Reconciliation Form, Thank You Letter, Antibiotic Education, Prescription Opioid Use form. - Follow up: Emergency Department; When: As needed; Reason: Worsening of condition. Follow up: Private Physician; When: 2 - 3 days; Reason: Recheck today's complaints, Continuance of care, Re-evaluation by your physician. Signatures: Dispatcher [employer] Jennifer Medina, JORDAN ERNST-Rufino Vang, CULINARY ARTS INSTRUCTOR CULINARY ARTS INSTRUCTOR em Jennifer Gustafson, YOSI RN Harrison Ortiz MD MD gs Corrections: (The following items were deleted from the chart) 18:09 17:46 12/11/2018 17:46 Discharged to Home. Impression: Hyperglycemia, unspecified. em Condition is Stable. Forms are Medication Reconciliation Form, Thank You Letter, Antibiotic Education, Prescription Opioid Use. Follow up: Emergency Department; When: As needed; Reason: Worsening of condition. Follow up: Private Physician; When: 2 - 3 days; Reason: Recheck today's complaints, Continuance of care, Re-evaluation by your physician. kb
[2018-12-11 19:10] VITALS: TEMP 98.2; O2SAT 100
[2018-12-11 19:12] VITALS: BP 131/63
== END 2018-12-11 18:09 | disposition home or self-care (01) ==
LOC: ER 15:45
DX: E11.65 Type 2 diabetes mellitus with hyperglycemia (principal); I10 Essential (primary) hypertension; E78.00 Pure hypercholesterolemia, unspecified
CPT/HCPCS: 36415; 70450; 80048; 82962; 85025; 96360; 99285

== ENCOUNTER 2019-07-18 16:27 | Emergency (ER) | payer OTHER ==
--- OUTSIDE RECORDS SUMMARY | 2019-07-18 16:29 | XMS REPORT ---
:1940 [facility] Address [address] [place] [address] Dr. Sebastian [address] [place] [id number] Care Team Providers Name Role Phone Unavailable Unavailable Unavailable Problems This patient has no known problems. Allergies, Adverse Reactions, Alerts This patient has no known allergies or adverse reactions. Medications This patient has no known medications. Encounters Start End Encounter Admission Attending Care Care Encounter Date/Time Date/Time Type Type Clinicians Facility Department ID 2019-05-24 2019-05-24 Outpatient [facility] [id number] 00:00:00 00:00:00 2019-05-23 2019-05-23 Outpatient [facility] [id number] 06:35:36 06:35:36 2019-05-22 2019-05-22 Emergency [facility] [id number] 12:56:01 12:56:01 2019-05-22 2019-05-22 Emergency [facility] [id number] 09:00:50 09:00:50 2019-05-22 2019-05-22 Outpatient [facility] [id number] 08:30:13 08:30:13 2019-03-31 2019-03-31 Emergency [facility] [id number] 04:34:39 04:34:39
[2019-07-18] MEDS ORDERED: TRAMADOL HCL 50 MG TAB ONE (17:13)
--- NOTE | 2019-07-18 17:37 | RAD REPORT ---
EXAM DESCRIPTION: RAD - Hand Right 3 View - 07/18/2019 5:28 pm CLINICAL HISTORY: PAIN COMPARISON: No comparisons FINDINGS: Bony fusion at the DIP joint of the second finger with flexion deformity noted. No acute f racture or dislocation. Chondrocalcinosis is present.
--- NOTE | 2019-07-18 18:48 | ER ---
Nurse's Notes [facility] Name: Gerald Lui Age: 78 yrs Sex: Male : 1940 Arrival Date: 07/18/2019 Time: 16:31 Bed 19 Private MD: Diagnosis: Pain in right hand Presentation: 07/18 16:38 Presenting complaint: Right hand pain x 6 weeks. Denies injury. Transition of care: hb patient was not received from another setting of care. Onset of symptoms is unknown. Risk Assessment: Do you want to hurt yourself or someone else? Patient reports no desire to harm self or others. Care prior to arrival: None. 16:38 Method Of Arrival: Ambulatory 16:38 Method Of Arrival: Ambulatory 16:38 Acuity: JASS 4 hb 17:13 Initial Sepsis Screen: Does the patient meet any 2 criteria? No. Patient's initial jl7 sepsis screen is negative. Does the patient have a suspected source of infection? No. Patient's initial sepsis screen is negative. Historical: - Allergies: 16:39 No Known Allergies; hb - Home Meds: 17:15 carvedilol 12.5 mg Oral tab 1 tab 2 times per day [Active]; Centrum Silver Oral jl7 [Active]; glimepiride 4 mg Oral tab 1 tab once daily [Active]; latonoprost [Active]; lisinopril 2.5 mg Oral tab 1 tab once daily [Active]; Metformin Oral [Active]; - PMHx: 16:39 Diabetes - NIDDM; High Cholesterol; Hypertension; hb - PSHx: 16:39 Appendectomy; hb - Immunization history:: Adult Immunizations. - Coronavirus screen:: The patient has NOT traveled to [place] in the past 14 days. The patient has NOT had contact with known/suspected case of Coronavirus? Proceed with normal triage procedures. - Social history:: Smoking status: Patient reports the use of cigarette tobacco products, denies chronic smoking, but will smoke occasionally. - Ebola Screening: : No symptoms or risks identified at this time. Screenin:00 Abuse screen: Denies threats or abuse. Denies injuries from another. Nutritional jl7 screening: No deficits noted. Tuberculosis screening: No symptoms or risk factors identified. Fall Risk None identified. Assessment: 17:00 General: Appears in no apparent distress. uncomfortable, Behavior is calm, cooperative, jl7 appropriate for age. Pain: Complains of pain in right hand Pain currently is 8 out of 10 on a pain scale. Neuro: Level of Consciousness is awake, alert, obeys commands, Oriented to person, place, time, situation. Cardiovascular: Patient's skin is warm and dry. Respiratory: Airway is patent Respiratory effort is even, unlabored, Respiratory pattern is regular, symmetrical. Derm: Skin is pink, warm \T\ dry. 18:00 Reassessment: Patient appears in no apparent distress at this time. Patient and/or jl7 family updated on plan of care and expected duration. Pain level reassessed. Patient is alert, oriented x 3, equal unlabored respirations, skin warm/dry/pink. Vital Signs: 16:39 BP 151 / 90; Pulse 73; Resp 16; Temp 98.2; Pulse Ox 100% on R/A; Weight 81.65 kg; hb Height 5 ft. 10 in. (177.80 cm); Pain 5/10; 16:39 Body Mass Index 25.83 (81.65 kg, 177.80 cm) hb ED Course: 16:31 Patient arrived in ED. mr 16:38 Triage completed. hb 16:39 Arm band placed on. hb 16:43 Yung Gutierrez NP is PHCP. pm1 16:43 Ray Pyle MD is Attending Physician. pm1 16:46 Roseanna Mims RN is Primary Nurse. jl7 17:00 Patient has correct armband on for positive identification. Bed in low position. Call jl7 light in reach. 19:00 No provider procedures requiring assistance completed. Patient did not have IV access jl7 during this emergency room visit. Administered Medications: 17:10 Drug: traMADol 50 mg Route: PO; jl7 18:00 Follow up: Response: No adverse reaction; Pain is decreased jl7 Outcome: 18:44 Discharge ordered by . pm1 19:00 Discharged to home ambulatory. jl7 19:00 Condition: stable 19:00 Discharge instructions given to patient, Instructed on discharge instructions, follow up and referral plans. medication usage, Demonstrated understanding of instructions, follow-up care, medications, Prescriptions given X 1. 19:01 Patient left the ED. jl7 Signatures: Bisi Rivera mr Yung Gutierrez NP EVENTS MANAGER pm1 Jennifer Gustafson, RN RN hb Roseanna Mims, RN RN jl7
--- NOTE | 2019-07-18 18:50 | EDPHYS ---
Physician Documentation [facility] Name: Gerald Lui Age: 78 yrs Sex: Male : 1940 Arrival Date: 07/18/2019 Time: 16:31 Bed 19 Private MD: ED Physician Ray Pyle HPI: 07/18 17:01 This 78 yrs old Male presents to ER via Ambulatory with complaints of Right pm1 Hand Pain. 17:01 The patient or guardian complains of pain. The complaints affect the right hand, pm1 primarily to right thumb. Context: The problem was sustained at an unknown location, resulted from unknown cause. Onset: The symptoms/episode began/occurred 6 week(s) ago. Treatment prior to arrival includes: no previous treatment. Modifying factors: The symptoms are alleviated by nothing. the symptoms are aggravated by nothing. Associated signs and symptoms: Pertinent negatives: decreased range of motion, deformity, numbness, tingling, trauma/injury. Severity of symptoms: in the emergency department the symptoms are unchanged. It is unknown whether or not the patient has recently seen a physician. Historical: - Allergies: 16:39 No Known Allergies; hb - Home Meds: 17:15 carvedilol 12.5 mg Oral tab 1 tab 2 times per day [Active]; Centrum Silver Oral jl7 [Active]; glimepiride 4 mg Oral tab 1 tab once daily [Active]; latonoprost [Active]; lisinopril 2.5 mg Oral tab 1 tab once daily [Active]; Metformin Oral [Active]; - PMHx: 16:39 Diabetes - NIDDM; High Cholesterol; Hypertension; hb - PSHx: 16:39 Appendectomy; hb - Immunization history:: Adult Immunizations. - Coronavirus screen:: The patient has NOT traveled to [place] in the past 14 days. The patient has NOT had contact with known/suspected case of Coronavirus? Proceed with normal triage procedures. - Social history:: Smoking status: Patient reports the use of cigarette tobacco products, denies chronic smoking, but will smoke occasionally. - Ebola Screening: : No symptoms or risks identified at this time. ROS: 17:01 Constitutional: Negative for fever, chills, and weight loss, Neck: Negative for injury, pm1 pain, and swelling, Cardiovascular: Negative for chest pain, palpitations, and edema, Respiratory: Negative for shortness of breath, cough, wheezing, and pleuritic chest pain, Abdomen/GI: Negative for abdominal pain, nausea, vomiting, diarrhea, and constipation, Back: Negative for injury and pain. 17:01 Skin: Negative for injury, rash, and discoloration, Neuro: Negative for headache, weakness, numbness, tingling, and seizure. 17:01 MS/extremity: Positive for pain, of the right hand. 17:01 All other systems are negative. Exam: 17:01 Constitutional: This is a well developed, well nourished patient who is awake, alert, pm1 and in no acute distress. Head/Face: Normocephalic, atraumatic. Neck: Trachea midline, no thyromegaly or masses palpated, and no cervical lymphadenopathy. Supple, full range of motion without nuchal rigidity, or vertebral point tenderness. No Meningismus. Chest/axilla: Normal chest wall appearance and motion. Nontender with no deformity. No lesions are appreciated. Cardiovascular: Regular rate and rhythm with a normal S1 and S2. No gallops, murmurs, or rubs. Normal PMI, no JVD. No pulse deficits. Respiratory: Lungs have equal breath sounds bilaterally, clear to auscultation and percussion. No rales, rhonchi or wheezes noted. No increased work of breathing, no retractions or nasal flaring. Back: No spinal tenderness. No costovertebral tenderness. Full range of motion. Skin: Warm, dry with normal turgor. Normal color with no rashes, no lesions, and no evidence of cellulitis. 17:01 Musculoskeletal/extremity: Extremities: grossly normal except: noted in the PIP of right thumb: tenderness, There is no evidence of decreased ROM, deformity, ROM: full active range of motion, in the right hand, full passive range of motion, in the right hand, Circulation is intact in all extremities. 17:01 Neuro: Orientation: is normal, Motor: is normal, moves all fours, Gait: is steady, at a normal pace, without difficulty. Vital Signs: 16:39 BP 151 / 90; Pulse 73; Resp 16; Temp 98.2; Pulse Ox 100% on R/A; Weight 81.65 kg; hb Height 5 ft. 10 in. (177.80 cm); Pain 5/10; 16:39 Body Mass Index 25.83 (81.65 kg, 177.80 cm) hb MDM: 16:55 Patient medically screened. pm1 18:43 Data reviewed: vital signs. Data interpreted: Pulse oximetry: on room air is 100 %. pm1 Interpretation: normal. Counseling: I had a detailed discussion with the patient and/or guardian regarding: the historical points, exam findings, and any diagnostic results supporting the discharge/admit diagnosis, radiology results, the need for outpatient follow up, a family practitioner, to return to the emergency department if symptoms worsen or persist or if there are any questions or concerns that arise at home. 07/18 17:01 Order name: Hand Right 3 View XRAY pm1 Administered Medications: 17:10 Drug: traMADol 50 mg Route: PO; jl7 18:00 Follow up: Response: No adverse reaction; Pain is decreased jl7 Disposition: 07/19 07:12 Co-signature as Attending Physician, Ray Pyle MD I agree with the assessment and kdr plan of care. Disposition: 07/18/19 18:44 Discharged to Home. Impression: Pain in right hand. - Condition is Stable. - Discharge Instructions: Arthritis, Musculoskeletal Pain. - Prescriptions for Tramadol 50 mg Oral Tablet - take 1 tablet by ORAL route every 8 hours as needed; 12 tablet. - Medication Reconciliation Form, Thank You Letter, Antibiotic Education, Prescription Opioid Use form. - Follow up: Emergency Department; When: As needed; Reason: Worsening of condition. Follow up: Private Physician; When: 2 - 3 days; Reason: Recheck today's complaints, Continuance of care, Re-evaluation by your physician. - Problem is new. - Symptoms have improved. Signatures: Dispatcher [employer] EDLA Ray Pyle MD MD kdr Marinas, Patrick, NP INHALATION THERAPIST pm1 Jennifer Gustafson RN RN Roseanna August RN RN jl7 Corrections: (The following items were deleted from the chart) 07/18 19:01 18:44 07/18/2019 18:44 Discharged to Home. Impression: Pain in right hand. Condition is jl7 Stable. Forms are Medication Reconciliation Form, Thank You Letter, Antibiotic Education, Prescription Opioid Use. Follow up: Emergency Department; When: As needed; Reason: Worsening of condition. Follow up: Private Physician; When: 2 - 3 days; Reason: Recheck today's complaints, Continuance of care, Re-evaluation by your physician. Problem is new. Symptoms have improved. pm1
[2019-07-18 19:44] VITALS: BP 131/79; TEMP 98; O2SAT 99
== END 2019-07-18 19:01 | disposition home or self-care (01) ==
LOC: ER 16:27
DX: M79.641 Pain in right hand (principal); I10 Essential (primary) hypertension; E78.00 Pure hypercholesterolemia, unspecified; E11.9 Type 2 diabetes mellitus without complications; Z72.0 Tobacco use
CPT/HCPCS: 99283

== ENCOUNTER 2020-02-01 07:24 | Emergency (ER) | payer OTHER ==
--- OUTSIDE RECORDS SUMMARY | 2020-02-01 07:26 | XMS REPORT | Clinical Summary ---
:1940 Author Organization [facility] Address [address] [place] [address] Care Team Providers Name Role Phone MD Jaden Primary Care Provider Allergies No Known Allergies Medications No known medications Active Problems Problem Noted Date Syncope Encounters Date Type Specialty Care Team Description 12/01/2019 Telephonic Family Practice Ken Zaman Abo ut Encounter MD Matthew Covid-19 Virus Infection (Prim lety Dx) 05/24/2019 Intake 05/22/2019 - Emergency Huebinger, Syncope, unspec ified 05/24/2019 Aime Arrington MD syncope type Sophia Siegel (Primary Dx) MD Maritza Arrington Abin, MD 03/31/2019 Emergency Emergency Medicine Mala Abebe Dyspeps ia (Primary Dx); MD Osito Chest pain in a dult after 01/31/2019 Social History Tobacco Use Types Packs/Day Years Used Date Never Assessed Sex Assigned at Date Recorded Not on file Job Start Date Occupation Industry Not on file Not on file Not on file Travel History Travel Start Travel End No recent travel history available. Last Filed Vital Signs Vital Sign Reading Time Taken Comments Blood Pressure 124/61 05/24/2019 11:15 AM HEARING EXAMINER Pulse 45 05/24/2019 11:15 AM HEARING EXAMINER Temperature 36.6 C (97.8 F) 05/24/2019 11:15 AM HEARING EXAMINER Respiratory Rate 17 05/24/2019 11:15 AM HEARING EXAMINER Oxygen Saturation 98% 05/24/2019 1:30 PM HEARING EXAMINER Inhaled Oxygen Concentration - - Weight 78.9 kg (174 lb) 05/22/2019 5:22 PM HEARING EXAMINER Height 167.6 cm (5' 6") 05/22/2019 5:22 PM HEARING EXAMINER Body Mass Index 28.08 05/22/2019 5:22 PM HEARING EXAMINER Plan of Treatment Health Maintenance Due Date Last Done Comments IMM Pneumococcal Age 65 and Up 2005 IMM Influenza Seasonal Oct to July (>/= 19 yrs) 02/23/2020 Procedures Procedure Name Priority Date/Time Associated Comments Diagnosis CORONAVIRUS, COVID-19 Routine 12/02/2019 8:53 Educated About Results for this ([facility]) AM CDT Covid-19 Virus procedure are in Infection the results section. GLUCOSE POC Routine 05/24/2019 11:35 Results for this AM HEARING EXAMINER procedure are i n the results section. GLUCOSE POC Routine 05/24/2019 7:29 Results for this AM HEARING EXAMINER procedure are i n the results section. PHOSPHORUS Routine 05/24/2019 3:35 Results for this AM HEARING EXAMINER procedure are i n the results section. MAGNESIUM Routine 05/24/2019 3:35 Results for this AM HEARING EXAMINER procedure are i n the results section. CBC (WITHOUT Routine 05/24/2019 3:35 Results for this DIFFERENTIAL) AM HEARING EXAMINER procedure are in the results section. BASIC METABOLIC PANEL Routine 05/24/2019 3:35 Re sults for this AM HEARING EXAMINER procedure are i n the results section. GLUCOSE POC Routine 05/23/2019 9:04 Results for this PM HEARING EXAMINER procedure are i n the results section. GLUCOSE POC Routine 05/23/2019 3:53 Results for this PM HEARING EXAMINER procedure are i n the results section. GLUCOSE POC Routine 05/23/2019 12:38 Results for this PM HEARING EXAMINER procedure are i n the results section. ECHG NON-INVASIVE PROC STAT 05/23/2019 9:27 R esults for this ECHOCARDIOGRAM 2-D W/O AM HEARING EXAMINER proce dure are in CONTRAST (PROSOLVE) the resu lts section. GLUCOSE POC Routine 05/23/2019 7:28 Results for this AM HEARING EXAMINER procedure are i n the results section. FREE T4 Add-on 05/23/2019 3:21 Results for this AM HEARING EXAMINER procedure are i n the results section. THYROID STIMULATING Add-on 05/23/2019 3:21 Resu lts for this HORMONE (TSH) AM HEARING EXAMINER procedure are in the results section. MAGNESIUM Routine 05/23/2019 3:21 Results for this AM HEARING EXAMINER procedure are i n the results section. PHOSPHORUS Routine 05/23/2019 3:21 Results for this AM HEARING EXAMINER procedure are i n the results section. BASIC METABOLIC PANEL Routine 05/23/2019 3:21 Re sults for this AM HEARING EXAMINER procedure are i n the results section. CBC (WITHOUT Routine 05/23/2019 3:21 Results for this DIFFERENTIAL) AM HEARING EXAMINER procedure are in the results section. LIPID PROFILE Routine 05/23/2019 3:21 Results fo r this AM HEARING EXAMINER procedure are i n the results section. GLUCOSE POC Routine 05/22/2019 8:46 Results for this PM HEARING EXAMINER procedure are i n the results section. IP CONSULT TO PHYSICAL Routine 05/22/2019 6:31 THERAPY PM HEARING EXAMINER ECHG EKG PROC 12 LEAD Routine 05/22/2019 5:41 Re sults for this EKG; TRACING ONLY PM HEARING EXAMINER procedure are in the results section. GLUCOSE POC Routine 05/22/2019 5:16 Results for this PM HEARING EXAMINER procedure are i n the results section. URINALYSIS Routine 05/22/2019 4:58 Results for this PM HEARING EXAMINER procedure are i n the results section. HEPATITIS PANEL Routine 05/22/2019 4:58 Results for this PM HEARING EXAMINER procedure are i n the results section. HIV AG/AB COMBO ROUTINE Routine 05/22/2019 4:58 Results for this SCREENING PM HEARING EXAMINER procedure are i n the results section. URINALYSIS Routine 05/22/2019 4:58 Results for this PM HEARING EXAMINER procedure are i n the results section. URINE DRUG SCREEN Routine 05/22/2019 4:58 Result s for this PM HEARING EXAMINER procedure are i n the results section. HEMOGLOBIN A1C Routine 05/22/2019 4:58 Results f or this PM HEARING EXAMINER procedure are i n the results section. LACTIC ACID Routine 05/22/2019 4:58 Results for this PM HEARING EXAMINER procedure are i n the results section. MAGNESIUM Routine 05/22/2019 4:58 Results for this PM HEARING EXAMINER procedure are i n the results section. CALCIUM, IONIZED Routine 05/22/2019 4:58 Results for this PM HEARING EXAMINER procedure are i n the results section. COMPREHENSIVE METABOLIC Routine 05/22/2019 4:58 Results for this PANEL PM HEARING EXAMINER procedure are i n the results section. PHOSPHORUS Routine 05/22/2019 4:58 Results for this PM HEARING EXAMINER procedure are i n the results section. TROPONIN I Routine 05/22/2019 4:58 Results for this PM HEARING EXAMINER procedure are i n the results section. IP CONSULT WITH INSIGHT Routine 05/22/2019 4:[address] HEAD W/O CONTRAST STAT 05/22/2019 2:33 Syncope, Res ults for this PM HEARING EXAMINER unspecified syncope procedur e are in type the results section. VBG POC Routine 05/22/2019 12:42 Results for this PM HEARING EXAMINER procedure are i n the results section. TROPONIN I POC Routine 05/22/2019 12:40 Results f or this PM HEARING EXAMINER procedure are i n the results section. VBG POC Routine 05/22/2019 11:08 Results for this AM HEARING EXAMINER procedure are i n the results section. XRAY CHEST 1 VIEW STAT 05/22/2019 9:19 Syncope, Result s for this AM HEARING EXAMINER unspecified syncope procedur e are in type the results section. BEDSIDE ULTRASOUND Routine 05/22/2019 8:50 Resul ts for this AM HEARING EXAMINER procedure are i n the results section. VBG POC Routine 05/22/2019 8:47 Results for this AM HEARING EXAMINER procedure are i n the results section. BMP POC Routine 05/22/2019 8:46 Results for this AM HEARING EXAMINER procedure are i n the results section. TROPONIN I POC Routine 05/22/2019 8:45 Results f or this AM HEARING EXAMINER procedure are i n the results section. CBC Add-on 05/22/2019 8:41 Results for this AM HEARING EXAMINER procedure are i n the results section. PHOSPHORUS Add-on 05/22/2019 8:41 Results for this AM HEARING EXAMINER procedure are i n the results section. MAGNESIUM Add-on 05/22/2019 8:41 Results for this AM HEARING EXAMINER procedure are i n the results section. CBC/DIFF Add-on 05/22/2019 8:41 Results for this AM HEARING EXAMINER procedure are i n the results section. ALCOHOL, MEDICAL USE Add-on 05/22/2019 8:41 Res ults for this ONLY AM HEARING EXAMINER procedure are i n the results section. PINK TOP TUBE STAT 05/22/2019 8:41 Results fo r this AM HEARING EXAMINER procedure are i n the results section. BLUE TOP TUBE STAT 05/22/2019 8:41 Results fo r this AM HEARING EXAMINER procedure are i n the results section. PURPLE TOP TUBE STAT 05/22/2019 8:41 Results for this AM HEARING EXAMINER procedure are i n the results section. GOLD TOP TUBE STAT 05/22/2019 8:41 Results fo r this AM HEARING EXAMINER procedure are i n the results section. RAINBOW DRAW STAT 05/22/2019 8:41 Results for this AM HEARING EXAMINER procedure are i n the results section. ECHG EKG PROC 12 LEAD Routine 05/22/2019 8:35 Re sults for this EKG; TRACING ONLY AM HEARING EXAMINER procedure are in the results section. GLUCOSE POC Routine 05/22/2019 8:35 Results for this AM HEARING EXAMINER procedure are i n the results section. TROPONIN I POC Routine 03/31/2019 6:29 Results f or this AM HEARING EXAMINER procedure are i n the results section. TROPONIN I POC Routine 03/31/2019 4:59 Results f or this AM HEARING EXAMINER procedure are i n the results section. BMP POC Routine 03/31/2019 4:59 Results for this AM HEARING EXAMINER procedure are i n the results section. BLUE TOP TUBE STAT 03/31/2019 4:52 Results fo r this AM HEARING EXAMINER procedure are i n the results section. PURPLE TOP TUBE STAT 03/31/2019 4:52 Results for this AM HEARING EXAMINER procedure are i n the results section. PURPLE TOP TUBE STAT 03/31/2019 4:52 Results for this AM HEARING EXAMINER procedure are i n the results section. GOLD TOP TUBE STAT 03/31/2019 4:52 Results fo r this AM HEARING EXAMINER procedure are i n the results section. GOLD TOP TUBE STAT 03/31/2019 4:52 Results fo r this AM HEARING EXAMINER procedure are i n the results section. RAINBOW DRAW STAT 03/31/2019 4:52 Results for this AM HEARING EXAMINER procedure are i n the results section. 12 LEAD EKG Routine 03/31/2019 3:17 Results for this AM HEARING EXAMINER procedure are i n the results section. GLUCOSE POC Routine 03/31/2019 3:07 Results for this AM HEARING EXAMINER procedure are i n the results section. after 01/31/2019 Results Coronavirus, CoVID-19 - L (12/02/2019 8:53 AM CDT) CoVID-19 Not Detected Not Detected [facility] 01 (SARS-CoV-2) Comment: Testing was performed using the [employer] SARS-CoV-2 assa y. This test was developed and its performance characteri stics determined by [employer]. This test has not been FDA cl eared or approved. This test has been authorized by FDA under a n Emergency Use Authorization (EUA). This test is only authorized for the duration of time the declaration that circumstances exist justifyi ng the authorization of the emergency use of in vitro diagnos tic tests for detection of SARS-CoV-2 virus and/or diagnosis of COVI D-19 infection under section 564(b)(1) of the Act, 21 U.S.C. 360bbb-3 (b)(1), unless the authorization is terminated or revoked sooner. When diagnostic testing is negative, the possibility o f a false negative result should be considered in the context of a patient's recent exposures and the presence of clinical signs an d symptoms consistent with COVID-19. An individual without sympto ms of COVID-19 and who is not shedding SARS-CoV-2 virus would expect to have a negative (not detected) result in this assay. Specimen Nasopharynx Narrative Performed At Performed at: 01 - [facility] [address] [place], [place] [id number] Collet Driller: Nicole David MD, Phone: [phone] Performing Organization Address [facility] Phone Number [facility] [address] [place] [address] [address] [facility] 01 POCT GLUCOSE POC docked device (05/24/2019 11:35 AM HEARING EXAMINER)Only the most recent of 10 resultswithin the time period is included. Pathologist Sig nature Glucose POC 214 (H) 74 - 106 mg/dL [facility] Specimen Blood Performing Organization Address [facility] Phone Number [facility] [address] [place] [address] Phosphorus (05/24/2019 3:35 AM HEARING EXAMINER)Only the most recent of4 resultswithin the time period is included. Pathologist Sig nature Phosphorus 3.7 2.5 - 5.0 mg/dL [facility] Specimen Blood Performing Organization Address [facility] Phone Number [facility] [address] [place] [address] [phone] Magnesium (05/24/2019 3:35 AM HEARING EXAMINER)Only the most recent of4 resultswithin the time period is included. Pathologist Sig nature Magnesium 1.6 (L) 1.9 - 2.7 mg/dL [facility] Specimen Blood Performing Organization Address [facility] Phone Number [facility] [address] [place] [phone] CBC (without differential) (05/24/2019 3:35 AM HEARING EXAMINER)Only the most recent of2 resultswithin the time period is included. Pathologist Sig nature WBC 6.7 4.5 - 12.0 K/uL [facility] RBC 4.21 (L) 4.60 - 6.20 M/uL [facility] Hemoglobin 12.9 (L) 14.0 - 18.0 g/dL [facility] Hematocrit 38.3 (L) 40.0 - 54.0 % [facility] MCV 91.0 82.0 - 92.0 fL [facility] MCH 30.6 27.0 - 31.0 pg [facility] MCHC 33.7 32.0 - 36.0 g/dL [facility] RDW 41.1 35.1 - 43.9 fL [facility] Platelet 223 150 - 400 K/uL [facility] Mean Platelet Volume 10.6 9.4 - 12.4 fL [facility] Percent NRBC 0.0 % [facility] Specimen Blood Performing Organization Address [facility] Phone Number [facility] [address] [place] [address] Basic Metabolic Panel (05/24/2019 3:35 AM HEARING EXAMINER)Only the most recent of2 results within the time period is included. Pathologist Sig nature Sodium 138 136 - 145 mmol/L [facility] Potassium 4.2 3.5 - 5.1 mmol/L [facility] Chloride 104 98 - 107 mmol/L [facility] CO2 27 21 - 31 mmol/L [facility] Urea Nitrogen 17.0 7.0 - 25.0 mg/dL [facility] Creatinine 0.8 0.7 - 1.3 mg/dL [facility] Glucose 199 (H) 70 - 110 mg/dL [facility] Calcium 8.5 (L) 8.6 - 10.3 mg/dL [facility] GFR, Estimated >90 >=90 mL/min/1.73 m2 [facility] Anion Gap 7 5 - 16 mmol/L [facility] Specimen Blood Performing Organization Address [facility] Phone Number [facility] [address] [place] [address] TRANSTHORACIC ECHO (TTE) (05/23/2019 9:27 AM HEARING EXAMINER) TRANSTHORACIC ECHO SMS (TTE) Transthoracic Echo Report MIGUEL ANGEL LUI Age: 78 Gender: M : 1940 Exam Date: 05/23/2019 09:27 Exam Location: [facility] Echo Ordering Phys: SOPHIA SIEGEL Referring Phys: [id number], ROBBIN Reading Phys: Bella Venegas M.D. Fellow Phys: Conor Connolly M.D. Fellow Phys: Destaticizer Feeder: Raul Jones Reason For Exam: Indications: Cardiogenic syncope ICD-9 Codes: Exam Type: TRANSTHORACIC ECHO (TTE) Procedure CPT: 85316 Addtional CPT: Ht (in): 66 BSA: 1.94 HR : 60 Rhythm: sinus bradycardia Wt (lb): 174 BP: 94 / 53 Technical Quality: Adequate History: MEASUREMENTS Normal ranges based on 95% confidence intervals for adults, some normal patients may fall outside of this range especially when indexing for BSA 2D ECHO LV Diastolic Diameter PLAX 3.5 cm 4.2-5.8 (M) / 3.8-5.2 (F) LV Systolic Diameter PLAX 2.8 cm 2.5-4.0 (M) / 2.2-3.5 (F) LV Fractional Shortening PLAX 19.8 % IVS Diastolic Thickness 1.4 cm 0.6-1.0 (M) / 0.6-0.9 (F) IVS Systolic Thickness 1.5 cm LVPW Diastolic Thickness 1.8 cm 0.6-1.0 (M) / 0.6-0.9 (F) LVPW Systolic Thickness 1.7 cm LV Relative Wall Thickness 0.9 <= 0.42 LVOT Diameter 2.1 cm Aortic Root Diameter 3.5 cm LA Systolic Diameter LX 3.8 cm LA Ao Ratio 1.1 LV Diastolic Volume MOD BP 43 cm 62-150 cm (M) / 46-106 cm (F) LV Systolic Volume MOD BP 14.5 cm 21-61 cm (M) / 14-42 cm (F) LV Ejection Fraction MOD BP 66.3 % 52-72 (M) / 54-74 (F) LV Stroke Volume MOD BP 28.5 cm LV Cardiac Output MOD BP 1710 cm/min LV Cardiac Index MOD BP 883 cm/min m LA Volume 5 1.7 cm LA Volume Index 26.7 cm/m 16 - 34 cm/m RV Diastolic Basal Diameter 4.3 cm 2.5 - 4.1 cm LV Mass by linear method 213 g LV Mass by linear method Index 110 g/m RA Volume 3 0.8 cm RA Volume Index 15.9 cm/ m M-MODE AV Cusp Separation MM 2.1 cm DOPPLER AV Peak Velocity 167 cm/s AV Peak Gradient 11.2 mmHg AV Mean Velocity 111 cm/s AV Mean Gradient 6 mmHg AV Velocity Time Integral 36.1 cm AI Peak Velocity 307 cm/s AI Peak Gradient 37.7 mmHg AI Deceleration [place] 138 cm/s AI Pressure Half Time 652 ms LVOT Peak Velocity 132 cm/s LVOT Peak Gradient 7 mmHg LVOT Mean Velocity 87.7 cm/s LVOT Mean Gradient 4 mmHg LVOT Velocity Time Integral 32.2 cm LVOT Stroke Volume 112 cm AV Area Cont Eq vti 3.1 cm AV Area Cont Eq pk 2.7 cm MV Peak Velocity 101 cm/s MV Peak Gradient 4.1 mmHg MV Mean Velocity 49 cm/s MV Mean Gradient 1 mmHg MV Velocity Time Integral 41.4 cm MV Area Cont Eq vti 2.7 cm Mitral E Point Velocity 82 cm/s Mitral A Point Velocity 96.7 cm/s Mitral E to A Ratio 0.85 MV Deceleration [place] 333 cm/s MV Pressure Half Time 72 ms MV Area PHT 3.1 cm MV Deceleration Time 246 ms TR Peak Velocity 206 cm/s TR Peak Gradient 17 mmHg PV Peak Velocity 87.3 cm/s PV Peak Gradient 3 mmHg PI Peak Gradient 2 mmHg RVOT Peak Velocity 60.6 cm/s RVOT Peak Gradient 1.5 mmHg LV E' Lateral Velocity 5.2 cm/s Mitral E to LV E' Lateral Ratio 15.7 LV E' Septal Velocity 4.6 cm/s Mitral E to LV E' Septal Ratio 17.9 RV S' Velocity 17.3 cm/s >9.5 cm/s FINDINGS Left Ventricle The left ventricle is mike l in size. LV systolic function is normal. LVEF is 65 - 69%. There are no obvi ous regional wall motion abnormalities visualized. Concentric remodeling. There is grade II diastolic dy sfunction. Right Ventricle The right ventricle is norm al in size and systolic function. RV S' velocity > 15 cm/sec. Right Atrium The right atrium is normal in size. Left Atrium The left atrium is mildly dilated IAS Mitral Valve Mitral valve appears thicke aristeo. Mitral annular calcification. No significant stenosis or prolapse. There is trace mitral regurgita tion. Aortic Valve The aortic valve is trileaf let, though moderately sclerotic and opens well. There is no aortic stenosis . There is mild aortic regurgitation (PHT > 500 ms). Tricuspid Valve Grossly normal tricuspid va lve without significant stenosis. There is trace tricuspid regurgitation. Incomplete TR jet, but estimated pulmonary artery systolic pressure estimated to be at least 25 mmHg assuming a RA pressure of 8 mmHg. Pulmonic Valve Pulmonic valve is not well visualized. No significant stenosis by Doppler. There is trace pulmonic reg urgitation, though the regurgitant jet is not well seen. Pericardium No pericardial effusion. Aorta Normal aortic root dimensio ns for BSA. Ascending aorta is in the upper limit of normal, measured 3.6cm. IVC The inferior vena cava is not well seen. CONCLUSIONS The left ventricle is mike l in size. LV systolic function is normal. LVEF is 65 - 69%. There are no obvious regional wall motion abnormaliti es visualized. Concentric remodeling. There is grade II diastolic dy sfunction. The right ventricle is normal in size and systolic fu nction. Normal right atrial size; left atrium is mildly dilat ed. Mitral annular calcification. Mild aortic regurgitation. Incomplete TR jet, but soni mated pulmonary artery systolic pressure estimated to be at least 25 mmHg assuming a RA pressure of 8 mm Hg. No pericardial effusion. Normal aortic root dimensio ns for BSA. Ascending aorta is in the upper limit of normal, measured 3.6cm. Bella Venegas M.D. (Electronically Signed) Final Date: 23 May 2019 13:20 2D ECHO LV Diastolic Diameter PLAX 3.5 cm 4.2-5.8 (M) / 3.8-5.2 (F) LV Systolic Diameter PLAX 2.8 cm 2.5-4.0 (M) / 2.2-3.5 (F) LV Fractional Shortening PLAX 19.8 % IVS Diastolic Thickness 1.4 cm 0.6-1.0 (M) / 0.6-0.9 (F) IVS Systolic Thickness 1.5 cm LVPW Diastolic Thickness 1.8 cm 0.6-1.0 (M) / 0.6-0.9 (F) LVPW Systolic Thickness 1.7 cm LV Relative Wall Thickness 0.9 <= 0.42 LVOT Diameter 2.1 cm Aortic Root Diameter 3.5 cm LA Systolic Diameter LX 3.8 cm LA Ao Ratio 1.1 LV Diastolic Volume MOD BP 43 cm 62-150 cm (M) / 46-106 cm (F) LV Systolic Volume MOD BP 14.5 cm 21-61 cm (M) / 14-42 cm (F) LV Ejection Fraction MOD BP 66.3 % 52-72 (M) / 54-74 (F) LV Stroke Volume MOD BP 28.5 cm LV Cardiac Output MOD BP 1710 cm/min LV Cardiac Index MOD BP 883 cm/min m LA Volume 5 1.7 cm LA Volume Index 26.7 cm/m 16 - 34 cm/m RV Diastolic Basal Diameter 4.3 cm 2.5 - 4.1 cm LV Mass by linear method 213 g LV Mass by linear method Index 110 g/m RA Volume 3 0.8 cm RA Volume Index 15.9 cm/ m M-MODE AV Cusp Separation MM 2.1 cm DOPPLER AV Peak Velocity 167 cm/s AV Peak Gradient 11.2 mmHg AV Mean Velocity 111 cm/s AV Mean Gradient 6 mmHg AV Velocity Time Integral 36.1 cm AI Peak Velocity 307 cm/s AI Peak Gradient 37.7 mmHg AI Deceleration [place] 138 cm/s AI Pressure Half Time 652 ms LVOT Peak Velocity 132 cm/s LVOT Peak Gradient 7 mmHg LVOT Mean Velocity 87.7 cm/s LVOT Mean Gradient 4 mmHg LVOT Velocity Time Integral 32.2 cm LVOT Stroke Volume 112 cm AV Area Cont Eq vti 3.1 cm AV Area Cont Eq pk 2.7 cm MV Peak Velocity 101 cm/s MV Peak Gradient 4.1 mmHg MV Mean Velocity 49 cm/s MV Mean Gradient 1 mmHg MV Velocity Time Integral 41.4 cm MV Area Cont Eq vti 2.7 cm Mitral E Point Velocity 82 cm/s Mitral A Point Velocity 96.7 cm/s Mitral E to A Ratio 0.85 MV Deceleration [place] 333 cm/s MV Pressure Half Time 72 ms MV Area PHT 3.1 cm MV Deceleration Time 246 ms TR Peak Velocity 206 cm/s TR Peak Gradient 17 mmHg PV Peak Velocity 87.3 cm/s PV Peak Gradient 3 mmHg PI Peak Gradient 2 mmHg RVOT Peak Velocity 60.6 cm/s RVOT Peak Gradient 1.5 mmHg LV E' Lateral Velocity 5.2 cm/s Mitral E to LV E' Lateral Ratio 15.7 LV E' Septal Velocity 4.6 cm/s Mitral E to LV E' Septal Ratio 17.9 RV S' Velocity 17.3 cm/s >9.5 cm/s Specimen Performing Organization Address [facility] Phone Number [facility] TSH [Thyroid Stimulating Hormone] (05/23/2019 3:21 AM HEARING EXAMINER) Pathologist Sig nature TSH 1.03 0.45 - 5.33 uIU/mL [facility] Specimen Blood Performing Organization Address [facility] Phone Number [facility] [address] [place] [phone] Free T4 (05/23/2019 3:21 AM HEARING EXAMINER) Pathologist Sig [facility] Free T4 0.75 0.64 - 1.42 ng/dl [facility] Specimen Blood Performing Organization Address [facility] Phone Number [facility] [address] [place] [address] [phone] Lipid Profile (05/23/2019 3:21 AM HEARING EXAMINER) Cholesterol 120.0 <=200.0 mg/dL [facility] Triglyceride 90 <150 mg/dL [facility] HDL 34.0 See Reference [facility] Range Narrative. mg/dL LDL 68 <100 mg/dL [facility] Comment: Optimal: < 100.0 mg/dL Near Optimal: 120-129 mg/dL Borderline: 130-159 mg/dL High: 160-189 mg/dL Very High: >=190 mg/dL Patient Fasting? 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 Operator: DAVE : 1941-03-2 5 Requested By: SOPHIA Arrington Order Number: [id number] Reading MD: James Kang rements Intervals [place] Rate: 59 P: 60 KS: 152 QRS: 63 QRSD: 105 T: 70 QT: 420 QTc: 418 Interpretive S tatements SINUS BRADYCARDIA Electronically Signed On 05-25-2019 11:32:02 HEARING EXAMINER by James Jones Specimen Performing Organization Address [facility] Phone Number SMS Urinalysis (05/22/2019 4:58 PM HEARING EXAMINER) [facility] Color Straw Colorless, Straw, [facility] Yellow Clarity Clear Clear [facility] Spec Seco, Ur 1.005 1.001 - 1.035 [facility] pH, Ur 7.0 5.0 - 8.0 [facility] Protein, Ur Negative Negative mg/dL [facility] Glucose, Ur 3+ (A) Negative mg/dL [facility] Ketone, Ur Negative Negative mg/dL [facility] Bilirubin, Ur Negative Negative mg/dL [facility] Nitrite, Ur Negative Negative [facility] Leukocyte Negative Negative mg/dL [facility] Blood, Ur Negative Negative mg/dL [facility] Urobilinogen, Ur <1.0 <1.0 EU/dL [facility] Specimen Urine Performing Organization Address [facility] Phone Number [facility] [address] [place] [phone] HIV-1/HIV-2 ROUTINE SCREENING (05/22/2019 4:58 PM HEARING EXAMINER) [facility] HIV Ag/Ab Combo Negative Negative [facility] Specimen Blood Performing Organization Address [facility] Phone Number [facility] [address] [place] [address] [phone] Hemoglobin A1C (05/22/2019 4:58 PM HEARING EXAMINER) [facility] Hemoglobin A1c 9.0 (H) 4.3 - 6.1 % [facility] Estimated Average Glucose 212 (H) 70 - 110 mg/dL [facility] Y Specimen Blood Performing Organization Address [facility] Phone Number [facility] [address] [place] [phone] Comprehensive Metabolic Panel (05/22/2019 4:58 PM HEARING EXAMINER) [facility] Sodium 137 136 - 145 mmol/L [facility] Potassium 4.5 3.5 - 5.1 mmol/L [facility] Chloride 102 98 - 107 mmol/L [facility] CO2 28 21 - 31 mmol/L [facility] Glucose 305 (H) 70 - 110 mg/dL [facility] Calcium 8.6 8.6 - 10.3 mg/dL [facility] Urea Nitrogen 10.0 7.0 - 25.0 mg/dL [facility] Creatinine 0.8 0.7 - 1.3 mg/dL [facility] Alkaline Phosphatase 83 34 - 104 U/L [facility] ALT 8 7 - 52 U/L [facility] AST 10 (L) 13 - 39 U/L [facility] Bilirubin, Total 0.3 0.2 - 1.2 mg/dL [facility] Total Protein 5.7 (L) 6.0 - 8.3 g/dL [facility] GFR, Estimated >90 >=90 mL/min/1.73 m2 [facility] Albumin 3.4 (L) 4.2 - 5.5 g/dL [facility] Anion Gap 7 5 - 16 mmol/L [facility] Specimen Blood Performing Organization Address City/[facility]/Zipcode Phone Number [facility] [address] [place] [address] [phone] Troponin I (05/22/2019 4:58 PM HEARING EXAMINER) Pathologist Sig nature Troponin I <0.03 <0.04 ng/mL [facility] Specimen Blood Performing Organization Address [facility] Phone Number [facility] [address] [place] [phone] Urine Drug Screen (05/22/2019 4:58 PM HEARING EXAMINER) Opiate, Ur Negative Negative [facility] Comment: Calibrated Standard: Morphine Positive if urine level > or = 300 ng/dL Amphetamine Negative Negative [facility] Comment: Calibrated Standard: D-Methamphetamine Positive if urine level > or = 1000 ng/mL Barbiturate Negative Negative [facility] Comment: Calibrated Standard: Secobarbital Positive if urine level is > or = 200 ng/mL Benzodiazepine Negative Negative [facility] Comment: Calibrated Standard: Lormethazepam Positive if urine level is > or = 200 ng/mL Cocaine Negative Negative [facility] Comment: Calibrated Standard: Benzoylecgonine Positive if urine level > or = 300 ng/dL PCP Negative Negative [facility] Comment: Calibrated Standard: Phencyclidine Positive if urine level > or = 25 ng/dL Cannabinoid Negative Negative [facility] Comment: Calibrated Standard: 11 nor-delta(9)-THC carboxylic ac id Positive if urine level > or = 50 ng/mL Specimen Urine - Voided, urine Performing Organization Address [facility] Phone Number [facility] [address] [place] [address] [phone] Lactic Acid (05/22/2019 4:58 PM HEARING EXAMINER) Pathologist Sig nature Lactic Acid 1.4 0.5 - 2.2 mmol/L [facility] Specimen Blood Performing Organization Address [facility] Phone Number [facility] [address] [place] [phone] Calcium, Ionized (05/22/2019 4:58 PM HEARING EXAMINER) Pathologist Sig [facility] Calcium, Ionized 1.14 (L) 1.15 - 1.29 mmol/L [facility] Specimen Blood Performing Organization Address [facility] Phone Number [facility] [address] [place] [phone] Hepatitis Panel (05/22/2019 4:58 PM HEARING EXAMINER) Pathologist Sig [facility] Hepatitis C Virus (HCV) Negative Negative [facility] RY Antibody Hep B Surface Ag Negative Negative [facility] Hep A Vir Ab IgM Negative Negative [facility] Hep B Core Ab IgM Negative Negative [facility] Specimen Blood Performing Organization Address [facility] Phone Number [facility] [address] [place] [address] CT HEAD W/O CONTRAST (05/22/2019 2:33 PM HEARING EXAMINER) Specimen Impressions Performed At IMPRESSION: [facility] 1. No acute intracranial abnormality. If there is clinical concern for acute posterior circulation ischemia, fu rther evaluation with MRI brain stroke protocol is recommended. 2. Diffuse cortical volume loss and ch ronic microvascular ischemic changes in the white matter 3. Prominent extra-axial spaces in the bilateral frontal convexities may be attributed to the underlying mayur ical volume loss. A chronic subdural fluid collection may have a sim ilar appearance, however. Comparison with prior imaging may be hel pful. 4. 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 Atelectatic appearance of the parti ally visualized left maxillary antrum. Differential considerations ma y include sequela of remote injury or silent sinus syndrome. Please correlate with history and clinical signs of enophthalmos. This [facility] radiology report is a prelimin lety resident dictation until finalized by an attending. Changes to this prelimina ry report may occur in an additional preliminary or finalize d version. I have reviewed the study and agree with the findings in this report. Signed By: Garcia Melendez MD, 9 4:34 PM Narrative Performed At EXAM: CT BRAIN WITHOUT CONTRAST [facility] DATE: 05/22/2019 INDICATION: Lethargy; syncope, unspecifi ed syncope type COMPARISON: None TECHNIQUE: Axial CT images of the brain are acquired without contrast. Sagittal and coronal reformats. IV contrast: None DLP: 797.7 mGy.cm FINDINGS: No edema, hemorrhage, mass lesion, or ex tra-axial collection is shown. 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 . There is diffuse cortical volume loss and chronic microvascular ischemic petersen es in the white matter. There are prominent CSF spaces along the bilat eral frontal convexities which may be attributed to the underlying mayur ical volume loss. The ventricles and basal cisterns are pa tent. There is no hydrocephalus or midline shift. There is no fracture of the skull, skull base, or visible facial bones. There are atherosclerotic calcifications of the bilateral carotid siphons and vertebrobasilar arteries. Th ere is an atelectatic appearance of the partially visualized left maxilla ry antrum. Procedure Note Interface, Rad/Mammog In - 05/22/2019 4 :40 PM HEARING EXAMINER EXAM: CT BRAIN WITHOUT CONTRAST DATE: 05/22/2019 INDICATION: Lethargy; syncope, unspecifi ed syncope type COMPARISON: None TECHNIQUE: Axial CT images of the brain are acquired without contrast. Sagittal and coronal reformats. IV contrast: None DLP: 797.7 mGy.cm FINDINGS: No edema, hemorrhage, mass lesion, or ex tra-axial collection is shown. 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 . There is diffuse cortical volume loss and chronic microvascular ischemic petersen es in the white matter. There are prominent CSF spaces along the bilat eral frontal convexities which may be attributed to the underlying mayur ical volume loss. The ventricles and basal cisterns are pa tent. There is no hydrocephalus or midline shift. There is no fracture of the skull, skull base, or visible facial bones. There are atherosclerotic calcifications of the bilateral carotid siphons and vertebrobasilar arteries. Th ere is an atelectatic appearance of the partially visualized left maxilla ry antrum. IMPRESSION IMPRESSION: 1. No acute intracranial abnormality. I f there is clinical concern for acute posterior circulation ischemia, fu rther evaluation with MRI brain stroke protocol is recommended. 2. Diffuse cortical volume loss and chr onic microvascular ischemic changes in the white matter 3. Prominent extra-axial spaces in the bilateral frontal convexities may be attributed to the underlying mayur ical volume loss. A chronic subdural fluid collection may have a sim ilar appearance, however. Comparison with prior imaging may be hel pful. 4. 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 Atelectatic appearance of the partia lly visualized left maxillary antrum. Differential considerations may include sequela of remote injury or silent sinus syndrome. Please correlate with history and clinical signs of enophthalmos. This [facility] radiology report is a prelimin lety resident dictation until finalized by an attending. Changes to t his preliminary report may occur in an additional preliminary or finalize d version. I have reviewed the study and agree with the findings in this report. Signed By: Garcia Melendez MD, 9 4:34 PM Performing Organization Address City/State/Zipcode Phone Number SMS POCT VBG POC docked device (05/22/2019 12:42 PM HEARING EXAMINER)Only the most recent of3 resultswithin the time period is included. pH, Richard POC 7.37 7.33 - 7.43 [facility] HCO3, Richard POC 27 (H) 22 - 26 mmol/L [facility] TCO2 POC 28 21 - 32 mmol/L [facility] PO2, Venous POC 39 (L) 50 - 75 mm Hg [facility] (BKR) pCO2,Richard POC 46.6 38 - 50 mmHg [facility] Base Excess Richard 1 mmol/L [facility] POC Jameson's Test [place] [facility] Sample Type IVEN [facility] Site RBRACHComment: [facility] Physician Notified Lactic Acid POC 2.69 (H) 0.40 - 2.00 [facility] mmol/L % Sat, Richard POC 71 % [facility] Specimen Blood, venous Performing Organization Address [facility] Phone Number [facility] [address] [place] [address] POCT TROPONIN I POC docked device (05/22/2019 12:40 PM HEARING EXAMINER)Only the most recent of4 resultswithin the time period is included. Pathologist Sig nature Troponin POC 0.00 0.00 - 0.08 ng/mL [facility] Specimen Blood, venous Performing Organization Address [facility] Phone Number [facility] [address] [place] [address] XRAY CHEST 1 VIEW (05/22/2019 9:19 AM HEARING EXAMINER) Specimen Impressions Performed At IMPRESSION: No acute abnormality. SMS Signed By: Marsha Raymond MD, 05/22/2019 9:21 AM Narrative Performed At EXAM: XR CHEST 1 VIEW SMS DATE: 05/22/2019 9:20 AM INDICATION: syncope. Syncope, unspecifie d syncope type COMPARISON: None. TECHNIQUE: AP chest FINDINGS: Lines, tubes and hardware: None. Lungs and pleura: Minimal left bas ilar platelike atelectasis is present, the lungs are otherwise clear. The costophrenic sulci are sharp, without pleural effusion. No pneu mothorax is identified. Heart and mediastinum: The heart size is normal for technique. Aortic arch vascular calcifications are present . Bones and soft tissues: No acute abnorma lity. Procedure Note Interface, Rad/Mammog In - 05/22/2019 9 :26 AM HEARING EXAMINER EXAM: XR CHEST 1 VIEW DATE: 05/22/2019 9:20 AM INDICATION: syncope. Syncope, unspecifie d syncope type COMPARISON: None. TECHNIQUE: AP chest FINDINGS: Lines, tubes and hardware: None. Lungs and pleura: Minimal left basil ar platelike atelectasis is present, the lungs are otherwise clear. The costophrenic sulci are sharp, without pleural effusion. No pneu mothorax is identified. Heart and mediastinum: The heart size is normal for technique. Aortic arch vascular calcifications are present . Bones and soft tissues: No acute abnorma lity. IMPRESSION IMPRESSION: No acute abnormality. Signed By: Marsha Raymond MD, 05/22/2019 9:21 AM Performing Organization Address [facility]/State/Zipcode Phone Number [facility] Bedside Ultrasound (05/22/2019 8:50 AM HEARING EXAMINER) Narrative Performed At Aime Cheema MD 05/22/2019 8:56 AM Bedside Ultrasound Date/Time: 05/22/2019 8:53 AM Performed by: Aime Cheema MD Authorized by: Aime Cheema MD Consent: Consent obtained: Verbal Consent given by: Patient Comments: Cardiac Ultrasound - parasternal polo g - normal ventricular caliber, approximtely normal EF. 4 chamber long - normal ventricular caliber, approxi mtely normal EF. No RV dilation IVC - 1.4 cm to .9cm POCT BMP POC docked device (05/22/2019 8:46 AM HEARING EXAMINER)Only the most recent of2 resultswithin the time period is included. Pathologist Sig nature Sodium POC 134 (L) 136 - 145 mmol/L [facility] Potassium POC 3.2 (L) 3.5 - 5.1 mmol/L [facility] Chloride POC 98 98 - 107 mmol/L [facility] TCO2 POC 23 21 - 32 mmol/L [facility] Urea Nitrogen POC 8 7 - 18 mg/dL [facility] Creatinine POC 0.9 0.6 - 1.3 mg/dL [facility] Glucose POC 310 (H) 74 - 106 mg/dL [facility] Ionized Calcium POC 1.14 (L) 1.15 - 1.29 mmol/L [facility] GFR, Estimated 82 (L) >=90 mL/min/1.73 m2 [facility] Hemoglobin POC 13.9 12 - 16 g/dL [facility] Hematocrit POC 41.0 37.0 - 47.0 % [facility] Specimen Blood, venous Performing Organization Address [facility]/State/Zipcode Phone Number [facility] [address] [place] [address] CBC/Diff (05/22/2019 8:41 AM HEARING EXAMINER) Pathologist Sig nature WBC 9.7 4.5 - 12.0 K/uL [facility] RBC 4.69 4.60 - 6.20 M/uL [facility] Hemoglobin 14.5 14.0 - 18.0 g/dL [facility] Hematocrit 41.3 40.0 - 54.0 % [facility] MCV 88.1 82.0 - 92.0 fL [facility] MCH 30.9 27.0 - 31.0 pg [facility] MCHC 35.1 32.0 - 36.0 g/dL [facility] RDW 38.8 35.1 - 43.9 fL [facility] Platelet 321 150 - 400 K/uL [facility] Mean Platelet Volume 10.3 9.4 - 12.4 fL [facility] Percent NRBC 0.0 % [facility] Neutrophil 58.1 34.0 - 67.9 % [facility] Lymphs 32.2 21.8 - 50.0 % [facility] Monocytes 3.7 (L) 5.3 - 12.0 % [facility] Eos 4.1 0.8 - 5.0 % [facility] Basos 1.3 (H) 0.2 - 1.2 % [facility] Immature Granulocytes 0.6 (H) 0.0 - 0.5 % [facility] Neutrophils (Absolute) 5.62 (H) 1.78 - 5.36 K/uL [facility] Lymphs (Absolute) 3.12 1.32 - 3.57 K/uL [facility] Monocytes(Absolute) 0.36 0.30 - 0.82 K/uL [facility] Eos (Absolute) 0.40 0.04 - 0.54 K/uL [facility] Baso (Absolute) 0.13 (H) 0.01 - 0.08 K/uL [facility] Immature Grans (Abs) 0.06 (H) 0.00 - 0.03 K/uL [facility] Absolute NRBC 0.00 K/uL [facility] Specimen Blood Performing Organization Address [facility] Phone Number [facility] [address] [place] [address] [phone] Blue Top Tube (05/22/2019 8:41 AM HEARING EXAMINER)Only the most recent of2 resultswithin the time period is included. Pathologist Sig nature Hold Specimen Complete [facility] Specimen Blood Performing Organization Address [facility] Phone Number [facility] [address] [place], [place] [phone] [place] Top Tube (05/22/2019 8:41 AM HEARING EXAMINER) Pathologist Sig nature Hold Specimen Complete [facility] Specimen Blood Performing Organization Address [facility] Phone Number [facility] [address] [place] [address] Purple Top (05/22/2019 8:41 AM HEARING EXAMINER)Only the most recent of3 resultswithin the time period is included. Pathologist Sig nature Hold Specimen Complete [facility] Specimen Blood Performing Organization Address [facility] Phone Number [facility] [address] [place] [phone] Gold Top Tube (05/22/2019 8:41 AM HEARING EXAMINER)Only the most recent of3 resultswithin the time period is included. Pathologist Sig nature Hold Specimen Complete [facility] Specimen Blood Performing Organization Address [facility] Phone Number [facility] [address] [place] [address] [phone] Alcohol (05/22/2019 8:41 AM HEARING EXAMINER) Pathologist Sig [facility] ALCOHOL, SERUM - RESULT (BKR) 0.07 <0.10 g/dL [facility] ORY Specimen Blood Performing Organization Address 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 Phone Number [facility] 12 LEAD EKG (03/31/2019 3:17 AM HEARING EXAMINER) 12 LEAD EKG FOR [facility] Test Date: 2019-03-31 Pat Name: MIGUEL ANGEL LUI Departar nt: [id number] Room: Gender: M Pasteuriser Operator: [id number] : [id number] Requested By: MALA Mcneill Order Number: [id number] Reading MD: Jelly Espino Measu rements Intervals [place] Rate: 51 P: 55 KS: 161 QRS: 51 QRSD: 115 T: 47 QT: 426 QTc: 394 Interpretive S tatements SINUS BRADYCARDIA INTRAVENTRICULAR CONDUCTION DELAY Electronically Signed On 03-31-2019 5:47:36 HEARING EXAMINER by Alex Espino Specimen Performing Organization Address City/State/Zipcode Phone Number SMS after 01/31/2019 Insurance Payer Benefit Plan / Subscriber ID Effective Phone Address T ype Group Dates [employer] SSI xxxxxxxxx 2013-Prese [phone] [address] [id number] [place] [address] HUMANA HUMANA OON xxxxxxxxx 2019-Prese [phone] [address] [address] [place] [address] Advance Directives Code Status Date Activated Date Inactivated Comments Full Code 05/22/2019 6:31 PM 05/24/2019 7:36 PM
--- OUTSIDE RECORDS SUMMARY | 2020-02-01 07:28 | XMS REPORT | Continuity of Care Document ---
:1940 Author Organization [facility] t Address [address] [place] [address] Dr. Segovia. [address] [place] [address] Care Team Providers Name Role Phone Jaden ROLDAN Primary Care Physician Olivia ROLDAN Attending Clinician Anette ROLDAN M Attending Clinician Alba ROLDAN M Attending Clinician Maritza ROLDAN Attending Clinician Andrae ROLDAN C Attending Clinician Payers Payer Name Policy Type Policy Number Effective Date Expiration Date Christy banerjee [facility] xxxxxxxxx 2013 Niya alarcon [employer] 00:00:00 Health SSIxxxxxxxxx7 [id number] [address] [address] HUMANUMANA xxxxxxxxx 2019 Mancini OONxxxxxxxxx1 00:00:00 [facility] [phone] [address] [place] [phone] [facility] STAR [id number] 2019 2019 00:00:00 00:00:00 HUMANA OON [id number] 2019 00:00:00 Problems Condition Condition Condition Status Onset Resolution Last Treating Co mments Source Name Details Category Date Date Treatment Clinician Date Syncope Syncope Disease Active [facility] Allergies, Adverse Reactions, Alerts This patient has no known allergies or adverse reactions. Social History Social Habit Start Date Stop Date Quantity Comments Source Sex Assigned At [facility] Medications This patient has no known medications. Vital Signs Vital Name Observation Time Observation Value Comments Source Oxygen saturation in 2019-05-24 13:30:00 98 /min [facility] Arterial blood by Pulse oximetry Systolic blood pressure 2019-05-24 11:15:00 124 mm[Hg] [facility] Diastolic blood pressure 2019-05-24 11:15:00 61 mm[Hg] [facility] Heart rate 2019-05-24 11:15:00 45 /min [facility] Body temperature 2019-05-24 11:15:00 36.56 Kailyn [facility] Respiratory rate 2019-05-24 11:15:00 17 /min [facility] Body height 2019-05-22 17:22:00 167.6 cm [facility] Body weight 2019-05-22 17:22:00 78.926 kg [facility] BMI 2019-05-22 17:22:00 28.08 kg/m2 [facility] Procedures Procedure Date / Time Performed Performing Clinician Sourc e CORONAVIRUS, COVID-19 2019-12-02 08:53:00 Tadeo Estrada [facility] ([facility] GLUCOSE POC 2019-05-24 11:35:00 Sophia Siegel [facility] GLUCOSE POC 2019-05-24 07:29:00 [facility]OL[facility] PANEL 2019-05-24 03:35:00 Harrison Duque [facility] CBC (WITHOUT DIFFERENTIAL) 2019-05-24 03:35:00 Harrison Duque [facility] MAGNESIUM 2019-05-24 03:35:00 [facility] PHOSPHORUS 2019-05-24 03:35:00 Sophia Siegel [facility] GLUCOSE POC 2019-05-23 21:04:00 Sophia Siegel [facility] GLUCOSE POC 2019-05-23 15:53:00 Sophia Siegel [facility] GLUCOSE POC 2019-05-23 12:38:00 [facility] NON-INVASIVE PROC 2019-05-23 09:27:00 Bre Jennings [facility] ECHOCARDIOGRAM 2-D W/O CONTRAST (PROSOLVE) GLUCOSE POC 2019-05-23 07:28:00 Sophia Siegel h LIPID PROFILE 2019-05-23 03:21:00 Gagan Glass [facility] CBC (WITHOUT DIFFERENTIAL) 2019-05-23 03:21:00 Cadence Glass [facility] BASIC METABOLIC PANEL 2019-05-23 03:21:00 [facility] PHOSPHORUS 2019-05-23 03:21:00 Gagan Glass [facility] MAGNESIUM 2019-05-23 03:21:00 Gagan Glass [facility] THYROID STIMULATING HORMONE 2019-05-23 03:21:[facility] FREE T4 2019-05-23 03:21:00 [facility] GLUCOSE POC 2019-05-22 20:46:00 Sophia Siegel IP CONSULT TO PHYSICAL 2019-05-22 18:31:41 Gagan Glass [facility] THERAPY ECHG EKG PROC 12 LEAD EKG; 2019-05-22 17:41:03 Cadence Glass [facility] TRACING ONLY GLUCOSE POC 2019-05-22 17:16:00 Unknown, Provider [facility] TROPONIN I 2019-05-22 16:58:00 Bre Jennings [facility] PHOSPHORUS 2019-05-22 16:58:00 Bre Jennings [facility] COMPREHENSIVE METABOLIC 2019-05-22 16:58:00 Bre Jennigns [facility] PANEL CALCIUM, IONIZED 2019-05-22 16:58:[address] [facility] s Health MAGNESIUM 2019-05-22 16:58:00 Bre Jennings [facility] LACTIC ACID 2019-05-22 16:58:00 Bre Jennings [facility] HEMOGLOBIN A1C 2019-05-22 16:58:00 Bre Jennings [facility] URINE DRUG SCREEN 2019-05-22 16:58:00 Bre Jennings [facility] URINALYSIS 2019-05-22 16:58:00 Bre Jennings [facility] HIV AG/AB COMBO ROUTINE 2019-05-22 16:58:00 Bre Jennings [facility] SCREENING HEPATITIS PANEL 2019-05-22 16:58:00 Bre Jennings [facility] URINALYSIS 2019-05-22 16:58:00 Bre Jennings [facility] IP CONSULT WITH INSIGHT 2019-05-22 16:25:46 Bre Jennings [facility] CT HEAD W/O CONTRAST 2019-05-22 14:33:37 Aime Cheema [facility] VBG POC 2019-05-22 12:42:00 Aime Cheema [facility] TROPONIN I POC 2019-05-22 12:40:00 Aime Cheema [facility] VBG POC 2019-05-22 11:08:00 Aime Cheema [facility] XRAY CHEST 1 VIEW 2019-05-22 09:19:57 Caryl Uribe [facility] BEDSIDE ULTRASOUND 2019-05-22 08:50:26 Aime Cheema [facility] VBG POC 2019-05-22 08:47:00 Amie Cheema [facility] BMP POC 2019-05-22 08:46:00 Aime Cheema [facility] TROPONIN I POC 2019-05-22 08:45:00 Aime Cheema [facility] RAINBOW DRAW 2019-05-22 08:41:00 Aime Cheema [facility] GOLD TOP TUBE 2019-05-22 08:41:00 Aime Cheema [facility] PURPLE TOP TUBE 2019-05-22 08:41:00 Aime Cheema [facility] BLUE TOP TUBE 2019-05-22 08:41:00 Aime Cheema [facility] PINK TOP TUBE 2019-05-22 08:41:00 Aime Cheema [facility] ALCOHOL, MEDICAL USE ONLY 2019-05-22 08:41:00 Aime Cheema [facility] CBC/DIFF 2019-05-22 08:41:00 Aime Cheema [facility] lt MAGNESIUM 2019-05-22 08:41:00 Aime Cheema [facility] lt PHOSPHORUS 2019-05-22 08:41:00 Aime Cheema [facility] CBC 2019-05-22 08:41:00 Aime Cheema [facility] ECHG EKG PROC 12 LEAD EKG; 2019-05-22 08:35:23 Aime Cheema [facility] TRACING ONLY GLUCOSE POC 2019-05-22 08:35:00 Unknown, Provider [facility] TROPONIN I POC 2019-03-31 06:29:00 Mala Abebe [facility] BMP POC 2019-03-31 04:59:00 Unknown, Provider [facility] TROPONIN I POC 2019-03-31 04:59:00 Unknown, Provider [facility] RAINBOW DRAW 2019-03-31 04:52:00 Mala Abebe [facility] GOLD TOP TUBE 2019-03-31 04:52:00 Mala Abebe [facility] PURPLE TOP TUBE 2019-03-31 04:52:00 Mala Abebe [facility] BLUE TOP TUBE 2019-03-31 04:52:00 Mala Abebe [facility] 12 LEAD EKG 2019-03-31 03:17:36 Mala Abebe [facility] GLUCOSE POC 2019-03-31 03:07:00 Unknown, Provider [facility] Plan of Care Planned Activity Planned Date Details Comments Source Future Scheduled Test 2020-02-23 IMM Influenza Seasonal [facility] 00:00:00 Feb to July (>/= 19 yrs) [code = IMM Influenza Seasonal Feb to July (>/= 19 yrs)] Future Scheduled Test 2005 IMM Pneumococcal Age 65 [facility] 00:00:00 and Up [code = IMM Pneumococcal Age 65 and Up] Encounters Start End Encounter Admission Attending Care Care Encounter Source Date/Time Date/Time Type Type Clinicians Facility Department ID 2019-12-05 2019-12-05 Outpatient [facility] [id number] 00:00:00 00:00:00 2019-12-01 2019-12-01 Outpatient OLIVIA [facility] [id number] [facility] 09:25:55 09:25:55 REMA 2019-05-24 2019-05-24 Outpatient [facility] [id number] [place] 00:00:00 00:00:00 Health 2019-05-23 2019-05-23 Outpatient [facility] [id number] [place] 06:35:36 06:35:36 Health 2019-05-22 2019-05-22 Emergency [facility] [id number] [place] 12:56:01 12:56:01 Health 2019-05-22 2019-05-22 Emergency [facility] [id number] [place] 09:00:50 09:00:50 Health 2019-05-22 2019-05-22 Outpatient [facility] [id number] [place] 08:30:13 08:30:13 Health 2019-03-31 2019-03-31 Emergency [facility] [id number] [place] 04:34:39 04:34:39 Health Results Test Description Test Time Test Comments Results Result Comments Source Coronavirus, CoVID-19 - L 2019-12-12 07:07:00 Test Item Value Reference Range Interpretation Comme nts CoVID-19 (SARS-CoV-2) Not Detected Not Detected Testin g was performed using (test code = 01641-1) the [employer] SARS-CoV-2 assay.This test was developed and i ts performance prem racteristics determinedby [employer]. T his test has not been FDA cl eared orapproved. Thi s test has been authorized by FDA under an Emergency UseAuthorizatio n (EUA). This test is only au thorized for the duration of time the declaration marcie t circumstances e xist justifying aleja uthorization of the emergenc y use of in vitro diagnosti c tests fordetection of SARS-CoV-2 virus and/or di agnosis of COVID-19 infect ionunder section 564(b)( 1) of the Act, 21 U.S.C. 360bbb-3(b)(1), unlessthe authorization i s terminated or revoked soon er.When diagnostic test ing is negative, the p ossibility of a falsenegative result should be consi dered in the context of a pa tient'srecent exposures and t he presence of clinical sig ns and symptomsconsist ent with COVID-19. An in dividual without symptom s of COVID-19and who is not shedding SARS-C oV-2 virus would expect to have anegative (not detected) result in this assay. 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: BRADY: 1940 Requested By: SOPHIA Whitmore Number: [id number] Reading MD: James Jones MeasurementsIntervals [place] Rate: 59 P: 60PR: 152 QRS: 63QRSD: 105 T: 70QT: 420 QTc:418 Interpretive StatementsSINUS BRADYC ARDIAElectronically Signed On 05-25-2019 11:32:02 TAX MANAGER by James Jones [facility] GLUCOSE POC docked [id number] 11:38:00 Test Item Value Reference Range Interpretation Comments Glucose POC (test code = 08728507) 214 mg/dL 74-106 H Lab Interpretation (test code = Abnormal 70956-7) [facility] Metabolic [id number] 05:16:00 Test Item Value Reference Range Interpretation Comments Sodium (test code = 2951-2) 138 mmol/L 136-145 Potassium (test code = 2823-3) 4.2 mmol/L 3.5-5.1 Chloride (test code = 2075-0) 104 mmol/L 98-107 CO2 (test code = 03850779) 27 mmol/L 21-31 Urea Nitrogen (test code = 17.0 mg/dL - 64819246) Creatinine (test code = 0.8 mg/dL 0.7-1.3 08081755) Glucose (test code = 90860236) 199 mg/dL 70-110 H Calcium (test code = 00716150) 8.5 mg/dL 8.6-10.3 L GFR, Estimated (test code = >90 >=90 mL/min/1.73 m2 55028823) Anion Gap (test code = 7 mmol/L -16 87755664) Lab Interpretation (test code Abnormal = 17608-3) [facility] [id number] 05:16:00 Test Item Value Reference Range Interpretation Comments Magnesium (test code = 16886796) 1.6 mg/dL 1.9-2.7 L Lab Interpretation (test code = Abnormal 93960-9) [facility] Center[id number] 05:16:00 Test Item Value Reference Range Interpretation Comments Phosphorus (test code = 2777-1) 3.7 mg/dL 2.5-5 Lab Interpretation (test code = Normal 64968-4) [facility] (without differential)2019-05-24 04:55:00 Test Item Value Reference Range Interpretation Comments WBC (test code = 6690-2) 6.7 K/uL 4.5-12 RBC (test code = 789-8) 4.21 4.60- 6.20 M/uL L Hemoglobin (test code = 718-7) 12.9 g/dL 14-18 L Hematocrit (test code = 4544-3) 38.3 % 40-54 L MCV (test code = 787-2) 91.0 fL 82-92 MCH (test code = 785-6) 30.6 pg 27-31 MCHC (test code = 786-4) 33.7 g/dL 32-36 RDW (test code = 65872-1) 41.1 fL 35.1-43.9 Platelet (test code = 777-3) 223 K/uL 150-400 Mean Platelet Volume (test code = 10.6 fL 9.4-12.4 79602-8) Percent NRBC (test code = 07640534) 0.0 % Lab Interpretation (test code = Abnormal 89808-9) [facility] [id number] 21:12:00 Test Item Value Reference Range Interpretation Comments Free T4 (test code = 88261400) 0.75 ng/dl 0.64-1.42 Lab Interpretation (test code = Normal 46054-5) [facility] CenterTSH [Thyroid Stimulating Hormone]2019-05-23 21:10:00 Test Item Value Reference Range Interpretation Comments TSH (test code = 95808977) 1.03 0.45- 5.33 uIU/mL Lab Interpretation (test code = Normal 02999-7) [facility]TRAN[facility] (TTE)2019-05-23 13:20:00TRANSTHORACIC ECHO (TTE) Transthoracic Echo Report MIGUEL ANGEL YBARRA Age: 78 Gender:M : 1940 Exam Date: 05/23/2019 09:27 ExamLocation: [facility] Ordering Phys: SOPHIA SIEGEL Referring Phys: [id number], CALHOUNReading Phys: Bella Venegas M.D. Fellow Phys: Conor Connolly M.D. Fellow Phys: Security Coordinator: Raul Jones Reason For Exam: Indications: Card iogenic syncope ICD-9 Codes: Exam Type: TRANSTHORACIC ECHO (TTE) Procedure CPT: 40726 Addtional CPT: Ht (in): 66 BSA: 1.94 HR: 60 Rhythm: sinus bradycardia Wt (lb): 174 [...] LV Fractional Shortening PLAX 19.8 % IVS DiastolicThickness 1.4 cm 0.6-1.0 (M) / 0.6-0.9 (F) [...] cm/min LV Cardiac Index MOD BP 883 cm/minm2 LAVolume 51.7 cm LA Volume Index 26.7 cm/m2 16 - 34 cm/m2 RV Diastolic Basal Diameter 4.3 cm 2.5 - 4.1 cm LV Mass by linear method 213 g LV Mass by linear method Index 110 g/m2 RA Volume 30.8 cm RA Volume Index 15.9 cm/m2 M-MODE AV Cusp Separation MM 2.1 cm DOPPLER AV Peak Velocity 167 cm/s AV Peak Gradient 11.2 mmHg AV Mean Velocity 111 cm/s AV Mean Gradient 6 mmHg AV Velocity Time Integral 36.1 cm AI Peak Velocity 307 cm/s AI Peak Gradient 37.7 mmHg AI Deceleration Roberts 138 cm/s2 AI Pressure Half Time 652 ms LVOT Peak Velocity 132 cm/s LVOT Peak Gradient 7 mmHg LVOT Mean Velocity 87.7 cm/s LVOTMean Gradient 4 mmHg LVOT Velocity Time Integral 32.2 cm LVOT Stroke Volume 112 cm AV Area Cont Eq vti 3.1 cm2 AV Area Cont Eq pk 2.7 cm2 MV Peak Velocity 101 cm/s MV Peak Gradient 4.1 mmHg MV Mean Velocity 49 cm/s MV Mean Gradient 1 mmHg MV Velocity Time Integral 41.4 cm MV Area Cont Eq vti 2.7 cm2 Mitral E Point Velocity 82 cm/s Mitral A PointVelocity 96.7 cm/s Mitral E to A Ratio 0.85MV Deceleration Roberts 333 cm/s2 MV Pressure Half Time 72 ms MV Area PHT 3.1 cm2 MV Deceleration Time 246 ms TR Peak [...] E' Septal Ratio 17.9 RV S' Velocity 17.3cm/s >9.5 cm/s FINDINGS Left Ventricle The left ventricle is normal in size. LVsystolic function is normal. LVEF is 65 - 69%. There are no obvious regional wall motion abnormalities visualized. Concentric remodeling. There is grade II diastolic dysfunction. Right VentricleThe right ventricle is normal in size and systolic function. RV S' velocity > 15 cm/sec. Right Atrium The right atrium is normal in size. Left Atrium The left atrium is mildly dilated IAS Mitral Valve Mitral valve appears thickened. Mitral annular calcification. No significant stenosis or prolapse. There is trace mitral regurgitation. Aortic Valve The aortic valve is trileaflet,though moderately sclerotic and opens well. There is no aortic stenosis. There is mild aortic regurgitation (PHT > 500 ms). Tricuspid Valve Grossly normal tricuspid valve without significant stenosis. There is trace tricuspid regurgitation. Incomplete TR jet, but estimated pulmonary artery systolic pressure estimated to be at least 25 mmHg assuming a RA pressure of 8 mmHg. Pulmonic Valve Pulmonic valve is not well visualized. No significant stenosis by Doppler. There is trace pulmonic regurgitation, though the regurgitant jet is not well seen. Pericardium No pericardial effusion. Aorta Normal aortic root dimensions for BSA. Ascending aorta is in the upper limit of normal, measured 3.6cm. IVC The inferior vena cava is not well seen. CONCLUSIONS The left ventricle is normal in size. LV systolic function is normal. LVEF is 65 - 69%. There are no obvious regional wall motion abnormalities visualized. Concentric remodeling. There is grade II diastolic dysfunction. The right ventricle is normal in size and systolic function. Normal right atrial size; leftatrium is mildly dilated. Mitral annular calcification. Mild aortic regurgitation. Incomplete TR jet, but estimated pulmonary artery systolic pressure estimated to be at least 25 mmHg assuming [place] pressure of 8 mmHg. No pericardial effusion. Normal aortic root dimensions for BSA. Ascending aorta is in the [...] cm LVPW Diastolic Thickness 1.8 cm 0.6-1.0 (M)/ 0.6-0.9 (F) LVPW Systolic Thickness 1.7 cm [...] cm/min LV Cardiac Index MOD BP 883 cm/minm2 LA Volume 51.7 cm LA Volume Index 26.7 cm/m2 16 - 34 cm/m2 RV Diastolic Basal Diameter 4.3 cm 2.5 - 4.1 cm LV Mass by linear method 213 g LV Mass by linear method Index 110g/m2 RA Volume 30.8 cm RA Volume Index 15.9 cm/m2 M-MODE AV Cusp Separation MM 2.1 cm DOPPLER AV Peak Velocity 167 cm/s AV Peak Gradient 11.2 mmHg AV Mean Velocity 111 cm/s AV Mean Gradient 6 mmHg AV Velocity Time Integral 36.1 cmAI Peak Velocity 307 cm/s AI Peak Gradient 37.7 mmHg AI Deceleration Roberts 138 cm/s2 AI Pressure Half Time 652 ms LVOT Peak Velocity 132 cm/s LVOT Peak Gradient 7 mmHg LVOT Mean Velocity 87.7 cm/s LVOT Mean Gradient 4 mmHg LVOT Velocity Time Integral 32.2 cm LVOT Stroke Volume 112 cm AV Area Cont Eq vti 3.1 cm2 AV Area Cont Eq pk 2.7 cm2 MV Peak Ve locity 101 cm/s MV Peak Gradient 4.1 mmHg MV Mean Velocity 49 cm/s MV Mean Gradient 1 mmHg MV Velocity Time Integral 41.4 cm MV Area Cont Eq vti 2.7 cm2 Mitral E Point Velocity 82 cm/s Mitral A Point Velocity 96.7 cm/s Mitral E to A Ratio 0.85 MV Deceleration Roberts 333 cm/s2 MV Pressure Half Time 72 ms MV Area PHT 3.1 cm2 MV Deceleration Time 246 ms TR Peak [...] RV S' Velocity 17.3 cm/s >9.5 cm/s [facility] HealthLipid [id number] 05:01:00 Test Item Value Reference Range Interpretation Comments Cholesterol (test code 120.0 mg/dL <=200.0 = 3-3) Triglyceride (test 90 mg/dL <150 code = 96689777) HDL (test code = 34.0 mg/dL See Reference Range 5-9) Narrative. LDL (test code = 68 mg/dL <100 Optimal: < 100.0 13445-4) mg/dLNear Optimal: 120-12 9 mg/dLBorderline : 130-159 mg/dLHigh: 160-189 mg/dLVe ry High: >=190 mg/ dL Patient Fasting? (test Yes code = 47517454) [facility] [id number] 20:56:00 Test Item Value Reference Range Interpretation Comments Hepatitis C Virus (HCV) Antibody Negative Negative (test code = 61323-3) Hep B Surface Ag (test code = Negative Negative 5196-1) Hep A Vir Ab IgM (test code = Negative Negative 96395-6) Hep B Core Ab IgM (test code = Negative Negative 66056-5) Lab Interpretation (test code = Normal 40659-0) [facility] CenterHemoglobin [id number] 18:51:00 Test Item Value Reference Range Interpretation Comments Hemoglobin A1c (test code = 4548-4) 9.0 % 4.3-6.1 H Estimated Average Glucose (test 212 mg/dL 70-110 H code = 94661160) Lab Interpretation (test code = Abnormal 56865-0) [facility] CenterHIV-[facility]/HIV-2 ROUTINE [id number] 18:16:00 Test Item Value Reference Range Interpretation Comments HIV Ag/Ab Combo (test code = Negative Negative 90354-7) Lab Interpretation (test code = Normal 30520-3) [facility] [id number] 18:05:00 Test Item Value Reference Range Interpretation Comments Color (test code = 51905241) Straw Colorless, Straw, Yellow Clarity (test code = Clear Clear 72626105) Spec [place], Ur (test code = 1.005 1.001-1.035 96902685) pH, Ur (test code = 23611008) 7.0 5.0-8.0 Protein, Ur (test code = Negative Negative mg/dL 31848013) Glucose, Ur (test code = 3+ Negative mg/dL A 73835221) Ketone, Ur (test code = Negative Negative mg/dL 17590571) Bilirubin, Ur (test code = Negative Negative mg/dL 60725876) Nitrite, Ur (test code = Negative Negative 41987133) Leukocyte (test code = Negative Negative mg/dL 47736351) Blood, Ur (test code = Negative Negative mg/dL 71853942) Urobilinogen, Ur (test code = <1.0 <1.0 EU/dL 35426982) Lab Interpretation (test code Abnormal = 06424-8) [facility] CenterCalcium, [id number] 18:02:00 Test Item Value Reference Range Interpretation Comments Calcium, Ionized (test code = 1.14 mmol/L 1.15-1.29 L 32836597) Lab Interpretation (test code = Abnormal 92170-9) [facility] CenterLactic [id number] 17:50:00 Test Item Value Reference Range Interpretation Comments Lactic Acid (test code = 46643612) 1.4 mmol/L 0.5-2.2 Lab Interpretation (test code = Normal 31182-5) [facility] CenterUrine Drug [id number] 17:49:00 Test Item Value Reference Range Interpretation Comments Opiate, Ur (test code Negative Negative Calib rated Standard: = 31991-2) Morphine Positi ve if urine level > o r = 300 ng/dL Amphetamine (test code Negative Negative Naun brated Standard: = 55662-4) D-Methamphetami ne Positive if uri ne level > or = 1000 ng/ mL Barbiturate (test code Negative Negative Naun brated Standard: = 80171-4) Secobarbital Po sitive if urine level is > or = 200 ng/mL Benzodiazepine (test Negative Negative Calibr ated Standard: code = 40428-3) Lormethazepa m Positive if urine level is > or = 200 ng/mL Cocaine (test code = Negative Negative Calibr ated Standard: 58517-7) Benzoylecgonine Positive if uri ne level > or = 300 ng/d L PCP (test code = Negative Negative Calibrated Standard: 09337-1) Phencyclidine P ositive if urine level > or = 25 ng/dL Cannabinoid (test code Negative Negative Naun brated Standard: = 89556-6) 11 nor-delta(9) -THC carboxylic acid Positive if uri ne level > or = 50 ng/mL Lab Interpretation Normal (test code = 58168-7) [id number] 17:45:00 Test Item Value Reference Range Interpretation Comments Troponin I (test code = 68125788) <0.03 <0.04 ng/mL Lab Interpretation (test code = Normal 97996-6) [facility] [id number] 17:45:00 Test Item Value Reference Range Interpretation Comments Sodium (test code = 2951-2) 137 mmol/L 136-145 Potassium (test code = 2823-3) 4.5 mmol/L 3.5-5.1 Chloride (test code = 2075-0) 102 mmol/L 98-107 CO2 (test code = 55181520) 28 mmol/L 21-31 Glucose (test code = 27905352) 305 mg/dL 70-110 H Calcium (test code = 06577578) 8.6 mg/dL 8.6-10.3 Urea Nitrogen (test code = 10.0 mg/dL 7-25 76959803) Creatinine (test code = 0.8 mg/dL 0.7-1.3 10440336) Alkaline Phosphatase (test 83 U/L 34-104 code = 95934749) ALT (test code = 19320537) 8 U/L 7-52 AST (test code = 30192612) 10 U/L 13-39 L Total Protein (test code = 5.7 g/dL 6-8.3 L 2885-2) GFR, Estimated (test code = >90 >=90 mL/min/1.73 m2 88863155) Albumin (test code = 37867-2) 3.4 g/dL 4.2-5.5 L Anion Gap (test code = 7 mmol/L 5-16 66557040) Lab Interpretation (test code Abnormal = 91582-8) [facility] CenterCT [facility] W/O [id number] 16:34:57IMPRESSION: 1. No acute intracranial abnormality. If there is clinical concern foracute posterior c irculation ischemia, further evaluation with MRI brainstroke protocol is recommended.2. Diffuse cortical volume loss and chronic microvascular ischemicchanges in the white matter3. Prominent extra-axial spaces in the bilateral frontal convexitiesmay be attributed to the underlying cortical volume loss. A chronicsubdural fluid collection may have a similar appearance, however.Comparison with prior imaging may be helpful.4. 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 Differential considerations may include sequela of remoteinjury or silent sinus syndrome. Please correlate with history andclinical signs of enophthalmos. This [facility] radiology report is a preliminary resident dictation untilfinalized by an attending. Changes to this preliminary report may occurin an additional preliminary or finalized version. I have reviewed the study and agree with the findings in this report. 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 . There is diffuse cortical volume lossand chronic microvascular ischemic changes inthe white matter. Thereare prominent CSF spaces along the bilateral frontal convexities whichmay be attributed to the underlying cortical volume loss. The ventricles and basal cisterns are patent. There is no hydrocephalusor midline shift.There is no fracture of the skull, skull base, or visible facial bones.There are atherosclerotic calcifications of the bilateral carotidsiphons and vertebrobasilar arteries. There is an atelectatic appearanceof the partially visualized left maxillary antrum.IMPRESSIONIMPRESSION: 1. No acute intracranial abnormality. If there is clinical concern foracute posterior circulation ischemia, further evaluation with MRI brainstroke protocol is recommended.2. Diffusecortical volume loss and chronic microvascular ischemicchanges in the white matter3. Prominent extra-axial spaces in the bilateral frontal convexitiesmay be attributed to the underlying cortical volume loss. A chronicsubdural fluid collection may have a similar appearance, however.Comparison with prior imaging may be helpful.4. 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 Atelectatic appearance of the partially visualized left maxillaryantrum. Differential considerations may include sequela of remoteinjury or silent sinus syndrome. Please correlate with history andclinical signs of enophthalmos.This [facility] radiology report is a preliminary resident dictation untilfinalized by an attending. Changes to this preliminary report may occurin an additional preliminary orfinalized version.I have reviewed the study and agree with the findings in this report.Signed By: Garcia Melendez MD, 05/22/2019 4:34 [facility] TROPONIN I POC docked [id number] 12:52:00 Test Item Value Reference Range Interpretation Comments Troponin POC (test code = 0.00 ng/mL 0-0.08 37935544) Lab Interpretation (test code = Normal 50460-9) [facility] VBG POC docked [id number] 12:47:00 Test Item Value Reference Range Interpretation Comments pH, Richard POC (test code = 7.37 7.33-7.43 95466461) HCO3, Richard POC (test code 27 mmol/L 22-26 H = 58301387) TCO2 POC (test code = 28 mmol/L 21-32 65154783) PO2, Venous POC (BKR) 39 50- 75 mm Hg L (test code = 56049345) pCO2,Richard POC (test code 46.6 38- 50 mmHg = 65619037) Base Excess Richard POC 1 mmol/L (test code = 92788123) Jameson's Test (test code CLAYTON = 46081583) Sample Type (test code = IVEN 49280241) Site (test code = RBRACH Physician Notified 64957937) Lactic Acid POC (test 2.69 mmol/L 0.4-2 H code = 05986542) % Sat, Richard POC (test 71 % code = 43607543) Lab Interpretation (test Abnormal code = 09440-3) [place] [address] LEAD [id number] 12:10:0812 LEAD EKG FOR [facility] Presley Cardoza [facility] Test Date: [id number] Name: MIGUEL ANGEL YBARRA Department: 6520Patient ID: [id number] Room: BLUE PODGender: M Accountant: : 1940 Requested By: AIME Whitmore Number: [id number] Reading MD: James Jones MeasurementsIntervals [place] Rate: 70 P: 55PR: 160 QRS: 68QRSD: 114 T: 33QT: 411 QTc: 445 Interpretive StatementsSINUS RHYTHM WITH OCCASIONAL VENTRICULAR PREMATURE COMPLEXESMODERATE INTRAVENTRICULAR CONDUCTION DELAY [110+ ms QRS DURATION]Electronically Signed On 05-22-2019 12:10:03 TAX MANAGER by James Shah [facility] [id number] 11:01:00 Test Item Value Reference Range Interpretation Comments Hold Specimen (test code = 73018648) Complete [facility] [id number] 11:01:00 Test Item Value Reference Range Interpretation Comments Hold Specimen (test code = 54306872) [facility] [id number] 11:01:00 Test Item Value Reference Range Interpretation Comments Hold Specimen (test code = 99877209) [facility] [id number] 11:01:00 Test Item Value Reference Range Interpretation Comments Hold Specimen (test code = 26700776) Complete [facility]/[id number] 10:51:00 Test Item Value Reference Range Interpretation Comments WBC (test code = 6690-2) 9.7 K/uL 4.5-12 RBC (test code = 789-8) 4.69 4.60- 6.20 M/uL Hemoglobin (test code = 718-7) 14.5 g/dL 14-18 Hematocrit (test code = 4544-3) 41.3 % 40-54 MCV (test code = 787-2) 88.1 fL 82-92 MCH (test code = 785-6) 30.9 pg 27-31 MCHC (test code = 786-4) 35.1 g/dL 32-36 RDW (test code = 24283-9) 38.8 fL 35.1-43.9 Platelet (test code = 777-3) 321 K/uL 150-400 Mean Platelet Volume (test code = 10.3 fL 9.4-12.4 87045-5) Percent NRBC (test code = 71721207) 0.0 % Neutrophil (test code = 770-8) 58.1 % 34-67.9 Lymphs (test code = 736-9) 32.2 % 21.8-50 Monocytes (test code = 5905-5) 3.7 % 5.3-12 L Eos (test code = 713-8) 4.1 % 0.8-5 Basos (test code = 706-2) 1.3 % 0.2-1.2 H Immature Granulocytes (test code = 0.6 % 0-0.5 H 93830874) Neutrophils (Absolute) (test code = 5.62 K/uL 1.78-5.36 H 55612790) Lymphs (Absolute) (test code = 3.12 K/uL 1.32-3.57 84688882) Monocytes(Absolute) (test code = 0.36 K/uL 0.3-0.82 31418371) Eos (Absolute) (test code = 0.40 K/uL 0.04-0.54 04539308) Baso (Absolute) (test code = 0.13 K/uL 0.01-0.08 H 47486432) Immature Grans (Abs) (test code = 0.06 K/uL 0-0.03 H 66274530) Absolute NRBC (test code = 0.00 K/uL 13504823) Lab Interpretation (test code = Abnormal 19007-6) [id number] 10:49:00 Test Item Value Reference Range Interpretation Comments ALCOHOL, SERUM - RESULT (BKR) (test 0.07 g/dL <0.10 code = 61384591) Lab Interpretation (test code = Normal 39719-6) [facility] 1 [id number] 09:21:06IMPRESSION: No acute abnormality. Signed By: Marsha Raymond MD, 05/22/2019 9:21 AM Interface, Aniceto/Jennifer inman In - 05/22/2019 9:26 AM CSTEXAM: XR CHEST 1 VIEWDATE: 05/22/2019 9:20 AM INDICATION: syncope. Syncope, unspecified syncope type COMPARISON: None.TECHNIQUE: AP chestFINDINGS: Lines, tubes and hardware: None. Lungs and pleura: Minimal left basilar platelike atelectasis ispresent, the lungs are otherwise clear. The costophrenic sulci aresharp, without pleural effusion. No pneumothorax is identified.Heart and mediastinum: The heart size is normal for technique. Aorticarch vascular calcifications are present. Bones and soft tissues: No acute abnormality.IMPRESSIONIMPRESSION: No acute abnormality.Signed By: Marsha Raymond MD, 05/22/2019 9:21 [facility] BMP POC docked device 2019-05-22 08:51:00 Test Item Value Reference Range Interpretation Comments Sodium POC (test code = 134 mmol/L 136-145 L 77825058) Potassium POC (test code = 3.2 mmol/L 3.5-5.1 L 18723950) Chloride POC (test code = 98 mmol/L 98-107 73618993) TCO2 POC (test code = 23 mmol/L 21-32 17159749) Urea Nitrogen POC (test code 8 mg/dL 7-18 = 33799667) Creatinine POC (test code = 0.9 mg/dL 0.6-1.3 43626487) Glucose POC (test code = 310 mg/dL 74-106 H 13559767) Ionized Calcium POC (test 1.14 mmol/L 1.15-1.29 L code = 82647703) GFR, Estimated (test code = 82 >=90 mL/min/1.73 m2 L 64742716) Hemoglobin POC (test code = 13.9 g/dL 12-16 82794960) Hematocrit POC (test code = 41.0 % 37-47 82281589) Lab Interpretation (test code Abnormal = 28430-9) [facility] [id number] 08:50:26Aime Cheema MD 05/22/2019 8:56 AMBedside UltrasoundDate/Time: 05/22/2019 8:53 AMPerformed by: Aime Cheema MDAuthorized by: Aime Cheema MD Consent: Consent obtained: Verbal Consent given by: PatientComments: Cardiac Ultrasound - parasternal long - normal ventricular caliber, approximtely normal EF. 4 chamber long - normal ventricular caliber, approximtely normal EF.No RV dilationIVC - 1.4 cm to .9cmHLisa [place] [address] LEAD [id number] 05:47:3812 [facility]AD [facility] Test Date: [id number] Name: MIGUEL ANGEL YBARRA Department: 6520Patient ID: [id number] Room: Gender: Accountant: [id number]: 1941 Requested By: MUMTAZ Dobbins Number: [id number] Reading MD: Jelly Espino MeasurementsIntervals [place] Rate: 51 P: 55PR: 161 QRS: 51QRSD: 115 T: 47QT: 426 QTc: 394 Interpretive StatementsSINUS BRADYCARDIAINTRAVENTRICULAR CONDUCTION DELAYElectronically Signed On 03-31-2019 5:47:36 TAX MANAGER by Jelly [facility]oUniversity [facility]
[2020-02-01 07:58] LABS: Basophils % 0.5 % (0-1.3); Hematocrit 43.6 % (39.6-49.0); RBC Red Blood Cell Count 4.78 M/uL (4.33-5.43)
[2020-02-01] MEDS ORDERED: NA CHLORIDE 0.9% 500 ML ONE (08:01)
[2020-02-01] MEDS ORDERED: TRAMADOL HCL 50 MG TAB ONE (08:02)
[2020-02-01 08:11] LABS: Potassium 3.7 mmol/L (3.5-5.1)
--- NOTE | 2020-02-01 08:30 | RAD REPORT ---
EXAM DESCRIPTION: RAD - Shoulder Right 2 View - 02/01/2020 8:18 am CLINICAL HISTORY: Right shoulder pain FINDINGS: No fracture or dislocation is seen. Osteoporosis. Mild to moderate osteoarthritis AC joint consisting of osteophytes. Osteoarthritis also involves the glenohumeral joint. Subchondral cysts, subchondral sclerosis osteoph ytes present.
--- NOTE | 2020-02-01 08:30 | RAD REPORT ---
EXAM DESCRIPTION: Yossi Single View02/01/2020 8:18 am CLINICAL HISTORY: Chest pain COMPARISON: 2018 FINDINGS: The lungs appear clear of acute infiltrate. The heart is mildly enlarged. Pacemaker leads are in place. IMPRESSION: No acute abnormalities displayed
--- NOTE | 2020-02-01 08:39 | EDPHYS ---
Physician Documentation [facility] Name: Gerald Lui Age: 79 yrs Sex: Male : 1940 Arrival Date: 02/01/2020 Time: 07:29 Bed 2 Private MD: ED Physician Atilio Wolf HPI: 01/31 07:42 This 79 yrs old Male presents to ER via EMS with complaints of High Blood rn Sugar, shoulder pain. 07:42 Onset: The symptoms/episode began/occurred at an unknown time. Current symptoms: In the rn emergency department the patient's symptoms are unchanged from the initial presentation. The patient has not experienced similar symptoms in the past. The patient has not recently seen a physician. Reports right shoulder pain for 6 months, no injury, no fever, reports aching pain that is keeping him from sleeping. No chest pain/sob. Also reports blood sugar has been running high, was put on insulin and then taken off because sugar going too low and felt bad. States glucose averaging in 200s. No abd pain/vomiting/diarrhea/urinary symptoms. . Historical: - Allergies: 07:33 No Known Allergies; jl7 - Home Meds: 07:33 carvedilol 12.5 mg Oral tab 1 tab 2 times per day [Active]; Centrum Silver Oral jl7 [Active]; glimepiride 4 mg Oral tab 1 tab once daily [Active]; latonoprost [Active]; lisinopril 2.5 mg Oral tab 1 tab once daily [Active]; Metformin Oral [Active]; - PMHx: 07:33 Diabetes - NIDDM; High Cholesterol; Hypertension; jl7 - Immunization history:: Adult Immunizations unknown. - Social history:: Smoking status: unknown. - Family history:: not pertinent. - Hospitalizations: : No recent hospitalization is reported. ROS: 07:42 Constitutional: Negative for fever, chills, and weight loss, Eyes: Negative for injury, rn pain, redness, and discharge, Neck: Negative for injury, pain, and swelling, Cardiovascular: Negative for chest pain, palpitations, and edema, Respiratory: Negative for shortness of breath, cough, wheezing, and pleuritic chest pain, Abdomen/GI: Negative for abdominal pain, nausea, vomiting, diarrhea, and constipation, Back: Negative for injury and pain, : Negative for injury, bleeding, discharge, and swelling, MS/Extremity: Negative for injury and deformity, Skin: Negative for injury, rash, and discoloration, Neuro: Negative for headache, weakness, numbness, tingling, and seizure. Exam: 07:42 Constitutional: This is a well developed, well nourished patient who is awake, alert, rn and in no acute distress. Head/Face: Normocephalic, atraumatic. Neck: Trachea midline, no thyromegaly or masses palpated, and no cervical lymphadenopathy. Supple, full range of motion without nuchal rigidity, or vertebral point tenderness. No Meningismus. Cardiovascular: Regular rate and rhythm. No pulse deficits. Respiratory: No increased work of breathing, no retractions or nasal flaring. Abdomen/GI: soft, non-tender MS/ Extremity: Pulses equal, no cyanosis. Neurovascular intact. Full, normal range of motion. Equal circumference. Neuro: Awake and alert, GCS 15, oriented to person, place, time, and situation. Cranial nerves II-XII grossly intact. Motor strength 5/5 in all extremities. Sensory grossly intact. Cerebellar exam normal. 08:15 ECG was reviewed by the Attending Physician. rn Vital Signs: 07:29 Pulse 65; Resp 17 S; Temp 98.4(O); Pulse Ox 96% on R/A; jl7 07:56 BP 160 / 69; Pulse 63; Resp 17; Pulse Ox 96% ; jl7 08:45 BP 155 / 72; Pulse 60; Resp 15; Pulse Ox 96% ; jl7 MDM: 07:30 Patient medically screened. rn 08:36 Differential diagnosis: hyperglycemia, shoulder pain, arthritis, tendonitis. Data rn reviewed: vital signs, nurses notes, lab test result(s), radiologic studies, plain films, and as a result, I will discharge patient. Counseling: I had a detailed discussion with the patient and/or guardian regarding: the historical points, exam findings, and any diagnostic results supporting the discharge/admit diagnosis, lab results, radiology results, the need for outpatient follow up, to return to the emergency department if symptoms worsen or persist or if there are any questions or concerns that arise at home. Response to treatment: the patient's symptoms have mildly improved after treatment, and as a result, I will discharge patient. Special discussion: I discussed with the patient/guardian in detail that at this point there is no indication for admission to the hospital. It is understood, however, that if the symptoms persist or worsen the patient needs to return immediately for re-evaluation. ED course: Normal vitals, no diabetic emergency, no acidosis, xray shows osteoarthritis, normal ecg. . 01/31 07:40 Order name: Glucose, Ancillary Testing; Complete Time: 08:12 EDMS 01/31 07:41 Order name: CBC with Diff; Complete Time: 08:12 rn 01/31 07:41 Order name: Basic Metabolic Panel; Complete Time: 08:12 rn 01/31 07:41 Order name: XRAY Shoulder RIGHT 2 view; Complete Time: 08:35 rn 01/31 07:41 Order name: XRAY Chest (1 view); Complete Time: 08:35 rn 01/31 07:41 Order name: IV Start; Complete Time: 07:49 rn 01/31 07:41 Order name: EKG; Complete Time: 07:42 rn 01/31 07:41 Order name: EKG - Nurse/Tech; Complete Time: 07:49 rn 01/31 07:41 Order name: Glucose Level; Complete Time: 08:30 rn EC:15 Rate is 63 beats/min. Rhythm is regular. QRS [place] is Normal. LA interval is normal. QRS rn interval is normal. QT interval is normal. No Q waves. T waves are Normal. No ST changes noted. Clinical impression: Normal ECG. Interpreted by me. Reviewed by me. Administered Medications: 07:56 Drug: NS 0.9% 500 ml Route: IV; Rate: bolus; Site: left forearm; [facility] 08:30 Follow up: Response: No adverse reaction; IV Status: Completed infusion; IV Intake: jl7 500ml 07:56 Drug: traMADol 50 mg Route: PO; jl7 08:30 Follow up: Response: No adverse reaction; Pain is decreased jl7 Disposition: 02/01/20 08:39 Discharged to Home. Impression: Hyperglycemia, unspecified, Primary osteoarthritis, right shoulder. - Condition is Stable. - Discharge Instructions: Arthritis, Hyperglycemia, Blood Glucose Monitoring, Adult. - Prescriptions for Tramadol 50 mg Oral Tablet - take 1 tablet by ORAL route every 8-12 hours as needed; 15 tablet. - Medication Reconciliation Form, Thank You Letter, Antibiotic Education, Prescription Opioid Use form. - Follow up: Private Physician; When: As needed; Reason: Recheck today's complaints, Re-evaluation by your physician. - Problem is new. - Symptoms have improved. Signatures: Dispatcher [employer] EDAtilio Goldstein MD MD rn Leal, Jahala, RN RN jl7 Corrections: (The following items were deleted from the chart) 09:15 08:39 02/01/2020 08:39 Discharged to Home. Impression: Hyperglycemia, unspecified; jl7 Primary osteoarthritis, right shoulder. Condition is Stable. Forms are Medication Reconciliation Form, Thank You Letter, Antibiotic Education, Prescription Opioid Use. Follow up: Private Physician; When: As needed; Reason: Recheck today's complaints, Re-evaluation by your physician. Problem is new. Symptoms have improved. rn
--- NOTE | 2020-02-01 08:39 | ER ---
Nurse's Notes [facility] Name: Gerald Lui Age: 79 yrs Sex: Male : 1940 Arrival Date: 02/01/2020 Time: 07:29 Bed 2 Private MD: Diagnosis: Hyperglycemia, unspecified;Primary osteoarthritis, right shoulder Presentation: 01/31 07:29 Chief complaint: EMS states: [place] speaking only; toned out for high blood sugar, BGL jl7 was 339, reporting right shoulder pain x 6 months. Coronavirus screen: Client denies travel out of the [place] in the last 14 days. At this time, the client does not indicate any symptoms associated with coronavirus-19. Ebola Screen: No symptoms or risks identified at this time. Initial Sepsis Screen: Does the patient meet any 2 criteria? No. Patient's initial sepsis screen is negative. Does the patient have a suspected source of infection? No. Patient's initial sepsis screen is negative. Risk Assessment: Do you want to hurt yourself or someone else? Patient reports no desire to harm self or others. Onset of symptoms is unknown. Care prior to arrival: None. Transition of care: patient was not received from another setting of care. 07:29 Method Of Arrival: EMS: [facility] jl7 07:29 Acuity: JASS 3 jl7 Triage Assessment: 07:33 General: Appears in no apparent distress. uncomfortable, Behavior is calm, cooperative, jl7 appropriate for age. Pain: Complains of pain in right shoulder. Neuro: Level of Consciousness is awake, alert, obeys commands. Cardiovascular: Patient's skin is warm and dry. Respiratory: Airway is patent Respiratory effort is even, unlabored, Respiratory pattern is regular, symmetrical. Derm: Skin is pink, warm \T\ dry. Historical: - Allergies: 07:33 No Known Allergies; jl7 - Home Meds: 07:33 carvedilol 12.5 mg Oral tab 1 tab 2 times per day [Active]; Centrum Silver Oral jl7 [Active]; glimepiride 4 mg Oral tab 1 tab once daily [Active]; latonoprost [Active]; lisinopril 2.5 mg Oral tab 1 tab once daily [Active]; Metformin Oral [Active]; - PMHx: 07:33 Diabetes - NIDDM; High Cholesterol; Hypertension; jl7 - Immunization history:: Adult Immunizations unknown. - Social history:: Smoking status: unknown. - Family history:: not pertinent. - Hospitalizations: : No recent hospitalization is reported. Screenin:34 Abuse screen: Denies threats or abuse. Denies injuries from another. Nutritional jl7 screening: No deficits noted. Tuberculosis screening: No symptoms or risk factors identified. 07:56 Fall Risk IV access (20 points). Total Daley Fall Scale indicates No Risk (0-24 pts). jl7 Assessment: 07:56 General: See triage assessment. jl7 Vital Signs: 07:29 Pulse 65; Resp 17 S; Temp 98.4(O); Pulse Ox 96% on R/A; jl7 07:56 BP 160 / 69; Pulse 63; Resp 17; Pulse Ox 96% ; jl7 08:45 BP 155 / 72; Pulse 60; Resp 15; Pulse Ox 96% ; jl7 ED Course: 07:29 Patient arrived in ED. jl7 07:30 Atilio Wolf MD is Attending Physician. rn 07:32 Triage completed. jl7 07:33 Arm band placed on right wrist. jl7 07:34 Patient has correct armband on for positive identification. Placed in gown. Bed in low jl7 position. Call light in reach. Side rails up X 1. box tender on. Pulse ox on. NIBP on. 07:45 Initial lab(s) drawn, by me, sent to lab. EKG done, by ED staff, reviewed by Atilio Wolf MD. Inserted saline lock: 20 gauge in left forearm, using aseptic technique. Blood collected. 07:48 Roseanna Mims, RN is Primary Nurse. jl7 08:18 XRAY Shoulder RIGHT 2 view In Process Unspecified. EDMS 08:18 XRAY Chest (1 view) In Process Unspecified. EDMS 09:15 No provider procedures requiring assistance completed. IV discontinued, intact, jl7 bleeding controlled, No redness/swelling at site. Pressure dressing applied. Administered Medications: :56 Drug: NS 0.9% 500 ml Route: IV; Rate: bolus; Site: left forearm; jl7 08:30 Follow up: Response: No adverse reaction; IV Status: Completed infusion; IV Intake: jl7 500ml 07:56 Drug: traMADol 50 mg Route: PO; jl7 08:30 Follow up: Response: No adverse reaction; Pain is decreased jl7 Intake: 08:30 IV: 500ml; Total: 500ml. jl7 Outcome: 08:39 Discharge ordered by . rn 09:15 Discharged to home ambulatory. jl7 09:15 Condition: stable 09:15 Discharge instructions given to patient, Instructed on discharge instructions, follow up and referral plans. medication usage, Demonstrated understanding of instructions, follow-up care, medications, Prescriptions given X 1. 09:15 Patient left the ED. jl7 Signatures: Dispatcher [employer] EDAtilio Goldstein MD MD rn Roseanna Mims RN RN jlJuan
[2020-02-01 09:22] VITALS: TEMP 98.4; O2SAT 96
[2020-02-01 09:25] VITALS: BP 155/72
--- NOTE | 2020-02-02 05:57 | EKG ---
Test Date: 2020-02-01 Test Time: 07:45:12 Central Office Equipment Installer: RA MEASUREMENT RESULTS: Intervals: Rate: 63 [place]: 152 QRSD: 96 QT: 412 QTc: 421 [place]: P: -1 [place]: 152 QRS: 48 T: 42 INTERPRETIVE STATEMENTS: Normal sinus rhythm with sinus arrhythmia Normal ECG Compared to ECG 11/03/2017 08:18:10 Sinus bradycardia no longer present Electronically Signed On 02-02-20 05:55:25 CDT by Adam Anderson
== END 2020-02-01 09:15 | disposition home or self-care (01) ==
LOC: ER 07:24
DX: M19.011 Primary osteoarthritis, right shoulder (principal); E11.65 Type 2 diabetes mellitus with hyperglycemia; I10 Essential (primary) hypertension; E78.00 Pure hypercholesterolemia, unspecified
CPT/HCPCS: 93005; 85025; 80048; 36415; 82947; 71045; 73030; 96360; 99285; J7040

== ENCOUNTER 2020-02-12 21:44 | Emergency (ER) | payer OTHER ==
--- OUTSIDE RECORDS SUMMARY | 2020-02-12 21:47 | XMS REPORT | Clinical Summary ---
:[address] [facility] Distr ict Address [address] [place] [address] Care Team Providers Name Role Phone MD [...] Osito Chest pain in a dult after 02/11/2019 Social History Tobacco Use Types Packs/Day Years Used Date Never Assessed Sex Assigned at Date Recorded Not on file Job Start Date Occupation Industry Not on file Not on file Not on file Travel History Travel Start Travel End No recent travel history available. Last Filed Vital Signs Vital Sign Reading Time Taken Comments Blood Pressure 124/61 05/24/2019 11:15 AM BEHAVIORAL HEALTH CARE MANAGER Pulse 45 05/24/2019 11:15 AM BEHAVIORAL HEALTH CARE MANAGER Temperature 36.6 C (97.8 F) 05/24/2019 11:15 AM BEHAVIORAL HEALTH CARE MANAGER Respiratory Rate 17 05/24/2019 11:15 AM BEHAVIORAL HEALTH CARE MANAGER Oxygen Saturation 98% 05/24/2019 1:30 PM BEHAVIORAL HEALTH CARE MANAGER Inhaled Oxygen Concentration - - Weight 78.9 kg (174 lb) 05/22/2019 5:22 PM BEHAVIORAL HEALTH CARE MANAGER Height 167.6 cm (5' 6") 05/22/2019 5:22 PM BEHAVIORAL HEALTH CARE MANAGER Body Mass Index 28.08 05/22/2019 5:22 PM BEHAVIORAL HEALTH CARE MANAGER Plan of Treatment Health Maintenance Due Date [...] Routine 05/24/2019 11:35 Results for this AM BEHAVIORAL HEALTH CARE MANAGER procedure are i n the results section. GLUCOSE POC Routine 05/24/2019 7:29 Results for this AM BEHAVIORAL HEALTH CARE MANAGER procedure are i n the results section. PHOSPHORUS Routine 05/24/2019 3:35 Results for this AM BEHAVIORAL HEALTH CARE MANAGER procedure are i n the results section. MAGNESIUM Routine 05/24/2019 3:35 Results for this AM BEHAVIORAL HEALTH CARE MANAGER procedure are i n the results section. CBC (WITHOUT Routine 05/24/2019 3:35 Results for this DIFFERENTIAL) AM BEHAVIORAL HEALTH CARE MANAGER procedure are in the results section. BASIC METABOLIC PANEL Routine 05/24/2019 3:35 Re sults for this AM BEHAVIORAL HEALTH CARE MANAGER procedure are i n the results section. GLUCOSE POC Routine 05/23/2019 9:04 Results for this PM BEHAVIORAL HEALTH CARE MANAGER procedure are i n the results section. GLUCOSE POC Routine 05/23/2019 3:53 Results for this PM BEHAVIORAL HEALTH CARE MANAGER procedure are i n the results section. GLUCOSE POC Routine 05/23/2019 12:38 Results for this PM BEHAVIORAL HEALTH CARE MANAGER procedure are i n the results section. ECHG NON-INVASIVE PROC STAT 05/23/2019 9:27 R esults for this ECHOCARDIOGRAM 2-D W/O AM BEHAVIORAL HEALTH CARE MANAGER proce dure are in CONTRAST (PROSOLVE) the resu lts section. GLUCOSE POC Routine 05/23/2019 7:28 Results for this AM BEHAVIORAL HEALTH CARE MANAGER procedure are i n the results section. FREE T4 Add-on 05/23/2019 3:21 Results for this AM BEHAVIORAL HEALTH CARE MANAGER procedure are i n the results section. THYROID STIMULATING Add-on 05/23/2019 3:21 Resu lts for this HORMONE (TSH) AM BEHAVIORAL HEALTH CARE MANAGER procedure are in the results section. MAGNESIUM Routine 05/23/2019 3:21 Results for this AM BEHAVIORAL HEALTH CARE MANAGER procedure are i n the results section. PHOSPHORUS Routine 05/23/2019 3:21 Results for this AM BEHAVIORAL HEALTH CARE MANAGER procedure are i n the results section. BASIC METABOLIC PANEL Routine 05/23/2019 3:21 Re sults for this AM BEHAVIORAL HEALTH CARE MANAGER procedure are i n the results section. CBC (WITHOUT Routine 05/23/2019 3:21 Results for this DIFFERENTIAL) AM BEHAVIORAL HEALTH CARE MANAGER procedure are in the results section. LIPID PROFILE Routine 05/23/2019 3:21 Results fo r this AM BEHAVIORAL HEALTH CARE MANAGER procedure are i n the results section. GLUCOSE POC Routine 05/22/2019 8:46 Results for this PM BEHAVIORAL HEALTH CARE MANAGER procedure are i n the results section. IP CONSULT TO PHYSICAL Routine 05/22/2019 6:31 THERAPY PM BEHAVIORAL HEALTH CARE MANAGER ECHG EKG PROC 12 LEAD Routine 05/22/2019 5:41 Re sults for this EKG; TRACING ONLY PM BEHAVIORAL HEALTH CARE MANAGER procedure are in the results section. GLUCOSE POC Routine 05/22/2019 5:16 Results for this PM BEHAVIORAL HEALTH CARE MANAGER procedure are i n the results section. URINALYSIS Routine 05/22/2019 4:58 Results for this PM BEHAVIORAL HEALTH CARE MANAGER procedure are i n the results section. HEPATITIS PANEL Routine 05/22/2019 4:58 Results for this PM BEHAVIORAL HEALTH CARE MANAGER procedure are i n the results section. HIV AG/AB COMBO ROUTINE Routine 05/22/2019 4:58 Results for this SCREENING PM BEHAVIORAL HEALTH CARE MANAGER procedure are i n the results section. URINALYSIS Routine 05/22/2019 4:58 Results for this PM BEHAVIORAL HEALTH CARE MANAGER procedure are i n the results section. URINE DRUG SCREEN Routine 05/22/2019 4:58 Result s for this PM BEHAVIORAL HEALTH CARE MANAGER procedure are i n the results section. HEMOGLOBIN A1C Routine 05/22/2019 4:58 Results f or this PM BEHAVIORAL HEALTH CARE MANAGER procedure are i n the results section. LACTIC ACID Routine 05/22/2019 4:58 Results for this PM BEHAVIORAL HEALTH CARE MANAGER procedure are i n the results section. MAGNESIUM Routine 05/22/2019 4:58 Results for this PM BEHAVIORAL HEALTH CARE MANAGER procedure are i n the results section. CALCIUM, IONIZED Routine 05/22/2019 4:58 Results for this PM BEHAVIORAL HEALTH CARE MANAGER procedure are i n the results section. COMPREHENSIVE METABOLIC Routine 05/22/2019 4:58 Results for this PANEL PM BEHAVIORAL HEALTH CARE MANAGER procedure are i n the results section. PHOSPHORUS Routine 05/22/2019 4:58 Results for this PM BEHAVIORAL HEALTH CARE MANAGER procedure are i n the results section. TROPONIN I Routine 05/22/2019 4:58 Results for this PM BEHAVIORAL HEALTH CARE MANAGER procedure are i n the results section. IP CONSULT WITH INSIGHT Routine 05/22/2019 4:[address] BEHAVIORAL HEALTH CARE MANAGER CT HEAD W/O CONTRAST STAT 05/22/2019 2:33 Syncope, Res ults for this PM BEHAVIORAL HEALTH CARE MANAGER unspecified syncope procedur e are in type the results section. VBG POC Routine 05/22/2019 12:42 Results for this PM BEHAVIORAL HEALTH CARE MANAGER procedure are i n the results section. TROPONIN I POC Routine 05/22/2019 12:40 Results f or this PM BEHAVIORAL HEALTH CARE MANAGER procedure are i n the results section. VBG POC Routine 05/22/2019 11:08 Results for this AM BEHAVIORAL HEALTH CARE MANAGER procedure are i n the results section. XRAY CHEST 1 VIEW STAT 05/22/2019 9:19 Syncope, Result s for this AM BEHAVIORAL HEALTH CARE MANAGER unspecified syncope procedur e are in type the results section. BEDSIDE ULTRASOUND Routine 05/22/2019 8:50 Resul ts for this AM BEHAVIORAL HEALTH CARE MANAGER procedure are i n the results section. VBG POC Routine 05/22/2019 8:47 Results for this AM BEHAVIORAL HEALTH CARE MANAGER procedure are i n the results section. BMP POC Routine 05/22/2019 8:46 Results for this AM BEHAVIORAL HEALTH CARE MANAGER procedure are i n the results section. TROPONIN I POC Routine 05/22/2019 8:45 Results f or this AM BEHAVIORAL HEALTH CARE MANAGER procedure are i n the results section. CBC Add-on 05/22/2019 8:41 Results for this AM BEHAVIORAL HEALTH CARE MANAGER procedure are i n the results section. PHOSPHORUS Add-on 05/22/2019 8:41 Results for this AM BEHAVIORAL HEALTH CARE MANAGER procedure are i n the results section. MAGNESIUM Add-on 05/22/2019 8:41 Results for this AM BEHAVIORAL HEALTH CARE MANAGER procedure are i n the results section. CBC/DIFF Add-on 05/22/2019 8:41 Results for this AM BEHAVIORAL HEALTH CARE MANAGER procedure are i n the results section. ALCOHOL, MEDICAL USE Add-on 05/22/2019 8:41 Res ults for this ONLY AM BEHAVIORAL HEALTH CARE MANAGER procedure are i n the results section. PINK TOP TUBE STAT 05/22/2019 8:41 Results fo r this AM BEHAVIORAL HEALTH CARE MANAGER procedure are i n the results section. BLUE TOP TUBE STAT 05/22/2019 8:41 Results fo r this AM BEHAVIORAL HEALTH CARE MANAGER procedure are i n the results section. PURPLE TOP TUBE STAT 05/22/2019 8:41 Results for this AM BEHAVIORAL HEALTH CARE MANAGER procedure are i n the results section. GOLD TOP TUBE STAT 05/22/2019 8:41 Results fo r this AM BEHAVIORAL HEALTH CARE MANAGER procedure are i n the results section. RAINBOW DRAW STAT 05/22/2019 8:41 Results for this AM BEHAVIORAL HEALTH CARE MANAGER procedure are i n the results section. ECHG EKG PROC 12 LEAD Routine 05/22/2019 8:35 Re sults for this EKG; TRACING ONLY AM BEHAVIORAL HEALTH CARE MANAGER procedure are in the results section. GLUCOSE POC Routine 05/22/2019 8:35 Results for this AM BEHAVIORAL HEALTH CARE MANAGER procedure are i n the results section. TROPONIN I POC Routine 03/31/2019 6:29 Results f or this AM BEHAVIORAL HEALTH CARE MANAGER procedure are i n the results section. TROPONIN I POC Routine 03/31/2019 4:59 Results f or this AM BEHAVIORAL HEALTH CARE MANAGER procedure are i n the results section. BMP POC Routine 03/31/2019 4:59 Results for this AM BEHAVIORAL HEALTH CARE MANAGER procedure are i n the results section. BLUE TOP TUBE STAT 03/31/2019 4:52 Results fo r this AM BEHAVIORAL HEALTH CARE MANAGER procedure are i n the results section. PURPLE TOP TUBE STAT 03/31/2019 4:52 Results for this AM BEHAVIORAL HEALTH CARE MANAGER procedure are i n the results section. PURPLE TOP TUBE STAT 03/31/2019 4:52 Results for this AM BEHAVIORAL HEALTH CARE MANAGER procedure are i n the results section. GOLD TOP TUBE STAT 03/31/2019 4:52 Results fo r this AM BEHAVIORAL HEALTH CARE MANAGER procedure are i n the results section. GOLD TOP TUBE STAT 03/31/2019 4:52 Results fo r this AM BEHAVIORAL HEALTH CARE MANAGER procedure are i n the results section. RAINBOW DRAW STAT 03/31/2019 4:52 Results for this AM BEHAVIORAL HEALTH CARE MANAGER procedure are i n the results section. 12 LEAD EKG Routine 03/31/2019 3:17 Results for this AM BEHAVIORAL HEALTH CARE MANAGER procedure are i n the results section. GLUCOSE POC Routine 03/31/2019 3:07 Results for this AM BEHAVIORAL HEALTH CARE MANAGER procedure are i n the results section. after 02/11/2019 Results Coronavirus, CoVID-19 - L (12/02/2019 8:53 AM CDT) CoVID-19 Not Detected Not Detected [facility] 01 (SARS-CoV-2) Comment: Testing was performed using the [employer] SARS-CoV-2 assa y. This test was developed and its performance characteri stics determined by [employer]. This test has not been FDA cl [...] Performed At Performed at: 01 - [facility] [place] [address] [place], [place] [id number] Campus Police Officer: Nicole David MD, Phone: [phone] Performing Organization Address [facility] Phone Number [facility] [address] [place] [address] [address] [facility] 01 POCT GLUCOSE POC docked device (05/24/2019 11:35 AM BEHAVIORAL HEALTH CARE MANAGER)Only the most recent of 10 resultswithin the time period is included. Pathologist Sig nature Glucose POC 214 (H) 74 - 106 mg/dL [facility] Specimen Blood Performing Organization Address [facility]/[place] Phone Number [facility] [address] [place] [address] Phosphorus (05/24/2019 3:35 AM BEHAVIORAL HEALTH CARE MANAGER)Only the most recent of4 resultswithin the time period is included. Pathologist Sig nature Phosphorus 3.7 2.5 - 5.0 mg/dL [facility] Specimen Blood Performing Organization Address [facility] Phone Number [facility] [address] [place] [address] [phone] Magnesium (05/24/2019 3:35 AM BEHAVIORAL HEALTH CARE MANAGER)Only the most recent of4 resultswithin the time period is included. Pathologist Sig nature Magnesium 1.6 (L) 1.9 - 2.7 mg/dL [facility] Specimen Blood Performing Organization Address [facility] Phone Number [facility] [address] [place] [phone] CBC (without differential) (05/24/2019 3:35 AM BEHAVIORAL HEALTH CARE MANAGER)Only the most recent of2 resultswithin the time [...] [facility] Specimen Blood Performing Organization Address [facility] Phone Number [facility] [address] [place] [address] Basic Metabolic Panel (05/24/2019 3:35 AM BEHAVIORAL HEALTH CARE MANAGER)Only the most recent of2 results within the [...] [facility] Specimen Blood Performing Organization Address [facility] Phone Number [facility] [address] [place] [address] TRANSTHORACIC ECHO (TTE) (05/23/2019 9:27 AM BEHAVIORAL HEALTH CARE MANAGER) TRANSTHORACIC ECHO SMS (TTE) Transthoracic Echo Report MIGUEL ANGEL LUI Age: 78 Gender: M : 1940 Exam Date: 05/23/2019 09:27 Exam Location: [facility] Echo Ordering Phys: SOPHIA SIEGEL Referring Phys: [id number], ROBBIN Reading Phys: Bella Venegas M.D. Fellow Phys: Conor Connolly M.D. Fellow Phys: Driller Operator: Raul Jones Reason For Exam: Indications: Cardiogenic syncope ICD-9 Codes: Exam Type: TRANSTHORACIC ECHO (TTE) Procedure CPT: 85022 Addtional CPT: Ht (in): 66 BSA: 1.94 [...] AI Peak Gradient 37.7 mmHg AI Deceleration Kidder 138 cm/s AI Pressure Half Time 652 [...] E to A Ratio 0.85 MV Deceleration Kidder 333 cm/s MV Pressure Half Time 72 [...] AI Peak Gradient 37.7 mmHg AI Deceleration Kidder 138 cm/s AI Pressure Half Time 652 [...] E to A Ratio 0.85 MV Deceleration Kidder 333 cm/s MV Pressure Half Time 72 [...] cm/s >9.5 cm/s Specimen Performing Organization Address [facility]/[place] Phone Number [facility] TSH [Thyroid Stimulating Hormone] (05/23/2019 3:21 AM BEHAVIORAL HEALTH CARE MANAGER) Pathologist Sig nature TSH 1.03 0.45 - 5.33 uIU/mL [facility] Specimen Blood Performing Organization Address [facility]/[place] Phone Number [facility] [address] [place] [phone] Free T4 (05/23/2019 3:21 AM BEHAVIORAL HEALTH CARE MANAGER) Pathologist Sig [facility] Free T4 0.75 0.64 - 1.42 ng/dl [facility] Specimen Blood Performing Organization Address [facility] Phone Number [facility] [address] [place] [address] [phone] Lipid Profile (05/23/2019 3:21 AM BEHAVIORAL HEALTH CARE MANAGER) Cholesterol 120.0 <=200.0 mg/dL [facility] Triglyceride 90 <150 mg/dL [facility] HDL 34.[address] [facility] Range Narrative. mg/dL LDL 68 <100 mg/dL [facility] Comment: Optimal: < 100.0 mg/dL Near Optimal: 120-129 mg/dL Borderline: 130-159 mg/dL High: 160-189 mg/dL Very High: >=190 mg/dL Patient Fasting? Yes [facility] Specimen Blood Performing Organization Address [facility] Phone Number [facility] [address] [place] [address] [phone] 12 LEAD EKG (05/22/2019 5:41 PM BEHAVIORAL HEALTH CARE MANAGER) 12 LEAD EKG FOR [facility] SMS Test Date: 2019-05-22 Pat Name: MIGUEL ANGEL LUI [facility] nt: [id number] Room: Gender: M Staff Radiologist: DAVE : 1941-03-2 5 Requested By: SOPHIA Arrington Order Number: [id number] Reading MD: James Kang rements Intervals [place] Rate: 59 P: 60 KS: 152 QRS: 63 QRSD: 105 T: 70 QT: 420 QTc: 418 Interpretive S tatements SINUS BRADYCARDIA Electronically Signed On 05-25-2019 11:32:02 BEHAVIORAL HEALTH CARE MANAGER by James Jones Specimen Performing Organization Address [facility] Phone Number SMS Urinalysis (05/22/2019 4:58 PM BEHAVIORAL HEALTH CARE MANAGER) [facility] Color Straw Colorless, Straw, [facility] Yellow Clarity Clear Clear [facility] Spec [place], Ur 1.005 1.001 - 1.[address] [facility] pH, Ur 7.0 5.0 - 8.[address] [facility] Protein, Ur Negative Negative mg/dL [facility] Glucose, Ur 3+ (A) Negative mg/dL [facility] Ketone, Ur Negative Negative mg/dL [facility] Bilirubin, Ur Negative Negative mg/dL [facility] Nitrite, Ur Negative Negative [facility] Leukocyte Negative Negative mg/dL [facility] Blood, Ur Negative Negative mg/dL [facility] Urobilinogen, Ur <1.0 <1.0 EU/dL [facility] Specimen Urine Performing Organization Address [facility] Phone Number [facility] [address] [place] [phone] HIV-1/HIV-2 ROUTINE SCREENING (05/22/2019 4:58 PM BEHAVIORAL HEALTH CARE MANAGER) [facility] HIV Ag/Ab Combo Negative Negative [facility] Specimen Blood Performing Organization Address [facility] Phone Number [facility] [address] [place] [phone] Hemoglobin A1C (05/22/2019 4:58 PM BEHAVIORAL HEALTH CARE MANAGER) [facility] Hemoglobin A1c 9.0 (H) 4.3 - 6.1 % [facility] Estimated Average Glucose 212 (H) 70 - 110 mg/dL [facility] Y Specimen Blood Performing Organization Address [facility] Phone Number [facility] [address] [place] [phone] Comprehensive Metabolic Panel (05/22/2019 4:58 PM BEHAVIORAL HEALTH CARE MANAGER) [facility] Sodium 137 136 - 145 mmol/L [facility] Potassium 4.5 3.5 - 5.1 mmol/L [facility] Chloride 102 98 - 107 mmol/L [...] Albumin 3.4 (L) 4.2 - 5.5 g/dL [facility] Anion Gap 7 5 - 16 mmol/L [facility] Specimen Blood Performing Organization Address City/[facility]/Zipcode Phone Number [facility] [address] [place] [address] [phone] Troponin I (05/22/2019 4:58 PM BEHAVIORAL HEALTH CARE MANAGER) Pathologist Sig nature Troponin I <0.03 <0.04 ng/mL [facility] Specimen Blood Performing Organization Address [facility] Phone Number [facility] [address] [place] [phone] Urine Drug Screen (05/22/2019 4:58 PM BEHAVIORAL HEALTH CARE MANAGER) Opiate, Ur Negative Negative [facility] Comment: [...] Urine - Voided, urine Performing Organization Address [facility]/[place] Phone Number [facility] [address] [place] [address] [phone] Lactic Acid (05/22/2019 4:58 PM BEHAVIORAL HEALTH CARE MANAGER) Pathologist Sig nature Lactic Acid 1.4 0.5 - 2.2 mmol/L [facility] Specimen Blood Performing Organization Address [facility]/[place] Phone Number [facility] [address] [place] [phone] Calcium, Ionized (05/22/2019 4:58 PM BEHAVIORAL HEALTH CARE MANAGER) Pathologist Sig [facility] Calcium, Ionized 1.14 (L) 1.15 - 1.29 mmol/L [facility] Specimen Blood Performing Organization Address [facility]/[place] Phone Number [facility] [address] [place] [phone] Hepatitis Panel (05/22/2019 4:58 PM BEHAVIORAL HEALTH CARE MANAGER) Pathologist Sig [facility] Hepatitis C Virus (HCV) Negative Negative [facility] RY Antibody Hep B Surface Ag Negative Negative [facility] Hep A Vir Ab IgM Negative Negative [facility] Hep B Core Ab IgM Negative Negative [facility] Specimen Blood Performing Organization Address [facility] Phone Number [facility] [address] [place] [address] CT HEAD W/O CONTRAST (05/22/2019 2:33 PM BEHAVIORAL HEALTH CARE MANAGER) Specimen Impressions Performed At IMPRESSION: [facility] 1. No acute intracranial abnormality. [...] history and clinical signs of enophthalmos. This [facility] radiology report is a prelimin lety resident dictation until finalized by an attending. Changes to this prelimina ry report may occur in an additional preliminary or finalize d version. I have reviewed the study and agree with the findings in this report. Signed By: Garcia Melendez MD, 9 4:34 PM Narrative Performed At EXAM: CT BRAIN WITHOUT CONTRAST [facility] DATE: 05/22/2019 INDICATION: Lethargy; syncope, [...] Rad/Mammog In - 05/22/2019 4 :40 PM BEHAVIORAL HEALTH CARE MANAGER EXAM: CT BRAIN WITHOUT CONTRAST DATE: 05/22/2019 [...] history and clinical signs of enophthalmos. This [facility] radiology report is a prelimin lety resident [...] VBG POC docked device (05/22/2019 12:42 PM BEHAVIORAL HEALTH CARE MANAGER)Only the most recent of3 resultswithin the time period is included. pH, Richard POC 7.37 7.33 - 7.[address] [facility] HCO3, Richard POC 27 (H) 22 - 26 mmol/L [facility] TCO2 POC 28 21 - 32 mmol/L [facility] PO2, Venous POC 39 (L) 50 - [address] [facility] (BKR) pCO2,Richard POC 46.6 38 - [address] [facility] Base Excess Richard 1 mmol/L [facility] POC Jameson's Test [place] [facility] Sample Type IVEN [facility] Site RBRACHComment: [facility] Physician Notified Lactic Acid POC 2.69 (H) 0.40 - 2.[address] [facility] mmol/L % Sat, Richard POC 71 % [facility] Specimen Blood, venous Performing Organization Address [facility]/[place] Phone Number [facility] [address] [place] [address] POCT TROPONIN I POC docked device (05/22/2019 12:40 PM BEHAVIORAL HEALTH CARE MANAGER)Only the most recent of4 resultswithin the time period is included. Pathologist Sig nature Troponin POC 0.00 0.00 - 0.08 ng/mL [facility] Specimen Blood, venous Performing Organization Address [facility]/[place] Phone Number [facility] [address] [place] [address] XRAY CHEST 1 VIEW (05/22/2019 9:19 AM BEHAVIORAL HEALTH CARE MANAGER) Specimen Impressions Performed At IMPRESSION: No acute [...] Rad/Mammog In - 05/22/2019 9 :26 AM BEHAVIORAL HEALTH CARE MANAGER EXAM: XR CHEST 1 VIEW DATE: 05/22/2019 [...] MD, 05/22/2019 9:21 AM Performing Organization Address [facility]/State/Zipcode Phone Number [facility] Bedside Ultrasound (05/22/2019 8:50 AM BEHAVIORAL HEALTH CARE MANAGER) Narrative Performed At Aime Cheema MD 05/22/2019 [...] BMP POC docked device (05/22/2019 8:46 AM BEHAVIORAL HEALTH CARE MANAGER)Only the most recent of2 resultswithin the time [...] Hematocrit POC 41.0 37.0 - 47.0 % [facility] Specimen Blood, venous Performing Organization Address [facility]/State/Zipcode Phone Number [facility] [address] [place] [address] CBC/Diff (05/22/2019 8:41 AM BEHAVIORAL HEALTH CARE MANAGER) Pathologist Sig nature WBC 9.7 4.5 - [...] [facility] Specimen Blood Performing Organization Address [facility] Phone Number [facility] [address] [place] [address] [phone] Blue Top Tube (05/22/2019 8:41 AM BEHAVIORAL HEALTH CARE MANAGER)Only the most recent of2 resultswithin the time period is included. Pathologist Sig nature Hold Specimen Complete [facility] Specimen Blood Performing Organization Address [facility] Phone Number [facility] [address] [place], [place] [phone] [place] Top Tube (05/22/2019 8:41 AM BEHAVIORAL HEALTH CARE MANAGER) Pathologist Sig nature Hold Specimen Complete [facility] Specimen Blood Performing Organization Address [facility]/[place] [facility] [address] [place] [address] Purple Top (05/22/2019 8:41 AM BEHAVIORAL HEALTH CARE MANAGER)Only the most recent of3 resultswithin the time period is included. Pathologist Sig nature Hold Specimen Complete [facility] Specimen Blood Performing Organization Address [facility] Phone Number [facility] [address] [place] [phone] Gold Top Tube (05/22/2019 8:41 AM BEHAVIORAL HEALTH CARE MANAGER)Only the most recent of3 resultswithin the time period is included. Pathologist Sig nature Hold Specimen Complete [facility] Specimen Blood Performing Organization Address [facility] Phone Number [facility] [address] [place] [phone] Alcohol (05/22/2019 8:41 AM BEHAVIORAL HEALTH CARE MANAGER) Pathologist Sig [facility] ALCOHOL, SERUM - RESULT (BKR) 0.07 <0.10 g/dL [facility] Specimen Blood Performing Organization Address [facility] Phone Number [facility] [address] [place] [phone] 12 LEAD EKG (05/22/2019 8:35 AM BEHAVIORAL HEALTH CARE MANAGER) 12 LEAD EKG FOR [facility] Test Date: 2019-05-22 Pat Name: MIGUEL ANGEL Melissa nt: [id number] Room: [facility] Gender: M Staff Radiologist: : 1941-03-2 5 Requested By: AIME Arrington Order Number: [id number] Reading MD: James Jones Measu rements Intervals [place] Rate: 70 P: 55 [place]: 160 QRS: 68 QRSD: 114 T: 33 QT: 411 QTc: 445 Interpretive S tatements SINUS RHYTHM WITH OCCASIONAL VENTRICULAR PREMATURE COM PLEXES MODERATE INTRAVENTRICULAR CONDUCTION DELAY [110+ ms QR S DURATION] Electronically Signed On 05-22-2019 12:10:03 BEHAVIORAL HEALTH CARE MANAGER by Vandana Jones Specimen Performing Organization Address [facility] Phone Number [facility] 12 LEAD EKG (03/31/2019 3:17 AM BEHAVIORAL HEALTH CARE MANAGER) 12 LEAD EKG FOR [facility] Test Date: 2019-03-31 Pat Name: MIGUEL ANGEL LUI Departtn nt: [id number] Room: Gender: M Staff Radiologist: [id number] : [birth year] Requested By: MALA Mcneill Order Number: [id number] Reading MD: Jelly Espino Measu rements Intervals [place] Rate: 51 P: 55 [place]: 161 QRS: 51 QRSD: 115 T: 47 QT: 426 QTc: 394 Interpretive S tatements SINUS BRADYCARDIA INTRAVENTRICULAR CONDUCTION DELAY Electronically Signed On 03-31-2019 5:47:36 BEHAVIORAL HEALTH CARE MANAGER by Alex Espino Specimen Performing Organization Address City/State/Zipcode Phone Number SMS after 02/11/2019 Insurance Payer Benefit Plan / Subscriber ID Effective Phone Address T ype Group Dates [employer] SSI xxxxxxxxx 2013-Prese [phone] [address] [place] [address] [id number] [place] [address] HUMANA HUMANA OON xxxxxxxxx 2019-Prese [phone] [address] [address] [place] [address] Advance Directives Code Status Date Activated Date Inactivated Comments Full Code 05/22/2019 6:31 PM 05/24/2019 7:36 PM
--- OUTSIDE RECORDS SUMMARY | 2020-02-12 21:48 | XMS REPORT | Continuity of Care Document ---
:1940 Author Organization [facility] t Address [facility] Steve Segovia. [address] [place] [address] Care Team Providers Name Role Phone Jaden ROLDAN Primary Care Physician Olivia ROLDAN Attending Clinician Anette ROLDAN M Attending Clinician Alba ROLDAN M Attending Clinician Maritza ROLDAN Attending Clinician Andrae ROLDAN C Attending Clinician Payers Payer Name Policy Type Policy Number Effective Date Expiration Date S lavonne [employer] MEDICAID xxxxxxxxx 2013 Niya alarcon [employer] 00:00:00 Health SSIxxxxxxxxx7 [id number] [address] [address] [address] HUMANAHUMANA xxxxxxxxx 2019 Mancini OONxxxxxxxxx1 00:00:00 [facility] [id number] [address] [place] [id number] [employer] STAR [id number] 2019 2019 00:00:00 00:00:00 HUMANA OON [id number] 2019 00:00:00 Problems Condition Condition Condition Status Onset Resolution Last Treating Co mments Source Name Details Category Date Date Treatment Clinician Date Syncope Syncope Disease Active [facility] Allergies, Adverse Reactions, Alerts This patient has no known allergies or adverse reactions. Social History Social Habit Start Date Stop Date Quantity Comments Source Sex Assigned At [facility] Medications This patient has no known medications. Vital Signs Vital Name Observation Time Observation Value Comments Source Oxygen saturation in 2019-05-24 13:30:00 98 /min [facility] Arterial blood by Pulse oximetry Systolic blood pressure 2019-05-24 11:15:00 124 mm[Hg] [facility] Diastolic blood pressure 2019-05-24 11:15:00 61 mm[Hg] [facility] Heart rate 2019-05-24 11:15:00 45 /min [facility] Body temperature 2019-05-24 11:15:00 36.56 Kailyn [facility] Respiratory rate 2019-05-24 11:15:00 17 /min [facility] Body height 2019-05-22 17:22:00 167.6 cm [facility] Body weight 2019-05-22 17:22:00 78.926 kg [facility] BMI 2019-05-22 17:22:00 28.08 kg/m2 [facility] Procedures Procedure Date / Time Performed Performing Clinician Sourc e CORONAVIRUS, COVID-19 2019-12-02 08:53:00 Tadeo Estrada [facility] ([facility]) GLUCOSE POC 2019-05-24 11:35:00 Sophia Siegel [facility] GLUCOSE POC 2019-05-24 07:29:00 [facility] PANEL 2019-05-24 03:35:00 Harrison Duque [facility] CBC (WITHOUT DIFFERENTIAL) 2019-05-24 03:35:00 Harrison Duque [facility] MAGNESIUM 2019-05-24 03:35:00 [facility] PHOS[facility]US 2019-05-24 03:35:00 Sophia Siegel [facility] GLUCOSE POC 2019-05-23 21:04:00 Sophia Siegel [facility] GLUCOSE POC 2019-05-23 15:53:00 Sophia Siegel [facility] GLUCOSE POC 2019-05-23 12:38:00 [facility] NON-INVASIVE PROC 2019-05-23 09:27:00 Bre Jennings [facility] ECHOCARDIOGRAM 2-D W/O CONTRAST (PROSOLVE) GLUCOSE POC 2019-05-23 07:28:00 Sophia Siegel h LIPID PROFILE 2019-05-23 03:21:00 Gagan Glass [facility] CBC (WITHOUT DIFFERENTIAL) 2019-05-23 03:21:00 Cadence Glass [facility] BASIC METABOLIC PANEL 2019-05-23 03:21:00 [facility] PHOSPHORUS 2019-05-23 03:21:00 Gagan Glass [facility] MAGNESIUM 2019-05-23 03:21:00 Gagan Glass [facility] THYROID STIMULATING HORMONE 2019-05-23 03:[facility]00 [facility] T4 2019-05-23 03:21:00 [facility] GLUCOSE POC 2019-05-22 20:46:00 Sophia Siegel IP CONSULT TO PHYSICAL 2019-05-22 18:31:41 Gagan Glass [facility] THERAPY ECHG EKG PROC 12 LEAD EKG; 2019-05-22 17:41:03 Cadence Glass [facility] TRACING ONLY GLUCOSE POC 2019-05-22 17:16:00 Unknown, Provider [facility] TROPONIN I 2019-05-22 16:58:00 Bre Jennings [facility] PHOSPHORUS 2019-05-22 16:58:00 Bre Jennings [facility] COMPREHENSIVE METABOLIC 2019-05-22 16:58:00 Bre Jennings [facility] PANEL CALCIUM, IONIZED 2019-05-22 16:58:00 Bre Jennings [facility] Health MAGNESIUM 2019-05-22 16:58:00 Bre Jennings [facility] LACTIC ACID 2019-05-22 16:58:00 Bre Jennings [facility] HEMOGLOBIN A1C 2019-05-22 16:58:00 Bre Jennings [facility] URINE DRUG SCREEN 2019-05-22 16:58:00 Bre Jennings [facility] URINALYSIS 2019-05-22 16:58:00 Bre Jennings [facility] HIV AG/AB COMBO ROUTINE 2019-05-22 16:58:00 Bre Jennings [facility] SCREENING HEPATITIS PANEL 2019-05-22 16:58:00 Bre Jennings [facility] URINALYSIS 2019-05-22 16:58:00 Bre Jennings [facility] IP CONSULT WITH INSIGHT 2019-05-22 16:25:46 Bre Jennings [facility] CT HEAD W/O CONTRAST 2019-05-22 14:33:37 Aime Cheema [facility] VBG POC 2019-05-22 12:42:00 Aime Cheema [facility] TROPONIN I POC 2019-05-22 12:40:00 Aime Cheema [facility] VBG POC 2019-05-22 11:08:00 Aime Cheema [facility] XRAY CHEST 1 VIEW 2019-05-22 09:19:57 Caryl Uribe [facility] BEDSIDE ULTRASOUND 2019-05-22 08:50:26 Aime Cheema [facility] VBG POC 2019-05-22 08:47:00 Aime Cheema [facility] BMP POC 2019-05-22 08:46:00 Aime Cheema [facility] TROPONIN I POC 2019-05-22 08:45:00 Aime Cheema [facility] RAINBOW DRAW 2019-05-22 08:41:00 Aime Cheema [facility] GOLD TOP TUBE 2019-05-22 08:41:00 Aime Cheema [facility] PURPLE TOP TUBE 2019-05-22 08:41:00 Aime Cheema [facility] BLUE TOP TUBE 2019-05-22 08:41:00 Aime Cheema [facility] PINK TOP TUBE 2019-05-22 08:41:00 Aime Cheema [facility] ALCOHOL, MEDICAL USE ONLY 2019-05-22 08:41:00 Aime Cheema [facility] CBC/DIFF 2019-05-22 08:41:00 Aime Cheema [facility] lt MAGNESIUM 2019-05-22 08:41:00 Aime Cheema [facility] lt PHOSPHORUS 2019-05-22 08:41:00 Aime Cheema [facility] CBC 2019-05-22 08:41:00 Aime Cheema [facility] ECHG EKG PROC 12 LEAD EKG; 2019-05-22 08:35:23 Aime Cheema [facility] TRACING ONLY GLUCOSE POC 2019-05-22 08:35:00 Unknown, Provider [facility] TROPONIN I POC 2019-03-31 06:29:00 Mala Abebe [facility] BMP POC 2019-03-31 04:59:00 Unknown, Provider [facility] TROPONIN I POC 2019-03-31 04:59:00 Unknown, Provider [facility] RAINBOW DRAW 2019-03-31 04:52:00 Mala Abebe [facility] GOLD TOP TUBE 2019-03-31 04:52:00 Mala Abebe [facility] PURPLE TOP TUBE 2019-03-31 04:52:00 Mala Abebe [facility] BLUE TOP TUBE 2019-03-31 04:52:00 Mala Abebe [facility] 12 LEAD EKG 2019-03-31 03:17:36 Mala Abebe [facility] GLUCOSE POC 2019-03-31 03:07:00 Unknown, Provider [facility] Plan of Care Planned Activity Planned Date Details Comments Source Future Scheduled Test 2020-02-23 IMM Influenza Seasonal [facility] 00:00:00 Feb to July (>/= 19 yrs) [code = IMM Influenza Seasonal Feb to July (>/= 19 yrs)] Future Scheduled Test 2005 IMM Pneumococcal Age 65 [facility] 00:00:00 and Up [code = IMM Pneumococcal Age 65 and Up] Encounters Start End Encounter Admission Attending Care Care Encounter Source Date/Time Date/Time Type Type Clinicians Facility Department ID 2019-12-05 2019-12-05 Outpatient [facility] [id number] [facility] 00:00:00 00:00:00 2019-12-01 2019-12-01 Outpatient OLIVIA [facility] [id number] [facility] 09:25:55 09:25:55 ENPOLLO 2019-05-24 2019-05-24 Outpatient [facility] [id number] [facility] [place] 00:00:00 00:00:00 Health 2019-05-23 2019-05-23 Outpatient [facility] [id number] [place] 06:35:36 06:35:36 Health 2019-05-22 2019-05-22 Emergency [facility] [id number] [place] 12:56:01 12:56:01 Health 2019-05-22 2019-05-22 Emergency [facility] [id number] [place] 09:00:50 09:00:50 Health 2019-05-22 2019-05-22 Outpatient [facility] [id number] [place] 08:30:13 08:30:13 Health 2019-03-31 2019-03-31 Emergency [facility] [id number] [place] 04:34:39 04:34:39 Health Results Test Description Test Time Test Comments Results Result Comments Source Coronavirus, CoVID-19 - L 2019-12-12 07:07:00 Test Item Value Reference Range Interpretation Comme nts CoVID-19 (SARS-CoV-2) Not Detected Not Detected Testin g was performed using (test code = 10718-0) the hitesh SARS-CoV-2 assay.This test was developed and i ts performance prem racteristics determinedby [employer]. T his test has not been FDA [...] BRYCE (test code = BRYCE) Performed at: [address] [place] [address] [id number] Director: Nicole David MD, Phone: [phone] [place] [address] LEAD [id number] 11:32:0512 LEAD EKG FOR CHP Pres[facility] Cardo[facility] Test Date: 4706-70-72Olw Name: MIGUEL ANGEL YBARRA Department: 6520Patient ID: [id number] Room: Gender: Bundle Helper: BRADY: 1940 Requested By: SOPHIA Whitmore Number: [id number] Reading MD: James Jones MeasurementsIntervals [place] Rate: 59 P: 60PR: 152 QRS: 63QRSD: 105 T: 70QT: 420 QTc:418 Interpretive StatementsSINUS BRADYC ARDIAElectronically Signed On 05-25-2019 11:32:02 [employer] by James Jones [facility] GLUCOSE POC docked [id number] 11:38:00 Test Item Value Reference Range Interpretation Comments Glucose POC (test code = 52138686) 214 mg/dL 74-106 H Lab Interpretation (test code = Abnormal 23792-7) formerly [facility] Metabolic [id number] 05:16:00 Test Item Value Reference Range Interpretation Comments Sodium (test code = 2951-2) 138 mmol/L 136-145 Potassium (test code = 2823-3) 4.2 mmol/L 3.5-5.1 Chloride (test code = 2075-0) 104 mmol/L 98-107 CO2 (test code = 18860960) 27 mmol/L 21-31 Urea Nitrogen (test code = 17.0 mg/dL - 75263722) Creatinine (test code = 0.8 mg/dL 0.7-1.3 18811116) Glucose (test code = 34418513) 199 mg/dL 70-110 H Calcium (test code = 13376214) 8.5 mg/dL 8.6-10.3 L GFR, Estimated (test code = >90 >=90 mL/min/1.73 m2 71253260) Anion Gap (test code = 7 mmol/L 5-16 00117129) Lab Interpretation (test code Abnormal = 55514-5) [facility] [id number] 05:16:00 Test Item Value Reference Range Interpretation Comments Magnesium (test code = 98302599) 1.6 mg/dL 1.9-2.7 L Lab Interpretation (test code = Abnormal 85076-2) [facility] Hosp[id number] 05:16:00 Test Item Value Reference Range Interpretation Comments Phosphorus (test code = 2777-1) 3.7 mg/dL 2.5-5 Lab Interpretation (test code = Normal 49559-2) [facility]without differential)2019-05-24 04:55:00 Test Item Value Reference [...] 33.7 g/dL 32-36 RDW (test code = 62247-7) 41.1 fL 35.1-43.9 Platelet (test code = 777-3) 223 K/uL 150-400 Mean Platelet Volume (test code = 10.6 fL 9.4-12.4 45761-9) Percent NRBC (test code = 37375747) 0.0 % Lab Interpretation (test code = Abnormal 03878-7) [facility] [id number] 21:12:00 Test Item Value Reference Range Interpretation Comments Free T4 (test code = 38765820) 0.75 ng/dl 0.64-1.42 Lab Interpretation (test code = Normal 72531-2) [facility] HospitalTSH [Thyroid Stimulating Hormone]2019-05-23 21:10:00 Test Item Value Reference Range Interpretation Comments TSH (test code = 99661438) 1.03 0.45- 5.33 uIU/mL Lab Interpretation (test code = Normal 18513-2) [facility] HospitalTRAN[facility] (TTE)2019-05-23 13:20:00TRANSTHORACIC ECHO (TTE) Transthoracic Echo Report MIGUEL ANGEL YBARRA Age: 78 Gender:M : 1940 Exam Date: 05/23/2019 09:27 ExamLocation: [facility] Ordering Phys: SOPHIA SIEGEL Referring Phys: [id number], CALHOUNReading Phys: Bella Venegas M.D. Fellow Phys: Conor Connolly M.D. Fellow Phys: Paper Cutter Operator: Raul Jones Reason For Exam: Indications: Card iogenic syncope ICD-9 Codes: Exam Type: TRANSTHORACIC ECHO (TTE) Procedure CPT: 07731 Addtional CPT: Ht (in): 66 BSA: 1.94 [...] AI Peak Gradient 37.7 mmHg AI Deceleration Banks 138 cm/s2 AI Pressure Half Time 652 [...] Mitral E to A Ratio 0.85MV Deceleration Banks 333 cm/s2 MV Pressure Half Time 72 [...] AI Peak Gradient 37.7 mmHg AI Deceleration Banks 138 cm/s2 AI Pressure Half Time 652 [...] E to A Ratio 0.85 MV Deceleration Banks 333 cm/s2 MV Pressure Half Time 72 [...] RV S' Velocity 17.3 cm/s >9.5 cm/s [facility] HealthLipid [id number] 05:01:00 Test Item Value Reference Range Interpretation Comments Cholesterol (test code 120.0 mg/dL <=200.0 = 3-3) Triglyceride (test 90 mg/dL <150 code = 22648105) HDL (test code = 34.0 mg/dL See Reference Range 5-9) Narrative. LDL (test code = 68 mg/dL <100 Optimal: < 100.0 65725-0) mg/dLNear Optimal: 120-12 9 mg/dLBorderline : 130-159 mg/dLHigh: 160-189 mg/dLVe ry High: >=190 mg/ dL Patient Fasting? (test Yes code = 92150182) [facility] HospitalHepatitis [id number] 20:56:00 Test Item Value Reference Range Interpretation Comments Hepatitis C Virus (HCV) Antibody Negative Negative (test code = 72676-7) Hep B Surface Ag (test code = Negative Negative 5196-1) Hep A Vir Ab IgM (test code = Negative Negative 51547-1) Hep B Core Ab IgM (test code = Negative Negative 21089-6) Lab Interpretation (test code = Normal 92963-5) [facility] HospitalHemoglobin [id number] 18:51:00 Test Item Value Reference Range Interpretation Comments Hemoglobin A1c (test code = 4548-4) 9.0 % 4.3-6.1 H Estimated Average Glucose (test 212 mg/dL 70-110 H code = 01604930) Lab Interpretation (test code = Abnormal 88738-9) [facility] HospitalHIV-1/HIV-2 ROUTINE [id number] 18:16:00 Test Item Value Reference Range Interpretation Comments HIV Ag/Ab Combo (test code = Negative Negative 02354-3) Lab Interpretation (test code = Normal 19085-2) [facility] Hosp[id number] 18:05:00 Test Item Value Reference Range Interpretation Comments Color (test code = 73844322) Straw Colorless, Straw, Yellow Clarity (test code = Clear Clear 77841479) Spec [place], Ur (test code = 1.005 1.001-1.035 85291875) pH, Ur (test code = 94255015) 7.0 5.0-8.0 Protein, Ur (test code = Negative Negative mg/dL 38718512) Glucose, Ur (test code = 3+ Negative mg/dL A 58123873) Ketone, Ur (test code = Negative Negative mg/dL 01978086) Bilirubin, Ur (test code = Negative Negative mg/dL 20633752) Nitrite, Ur (test code = Negative Negative 45583910) Leukocyte (test code = Negative Negative mg/dL 84770152) Blood, Ur (test code = Negative Negative mg/dL 18134187) Urobilinogen, Ur (test code = <1.0 <1.0 EU/dL 66906661) Lab Interpretation (test code Abnormal = 45620-8) [facility] HospitalCalcium, [id number] 18:02:00 Test Item Value Reference Range Interpretation Comments Calcium, Ionized (test code = 1.14 mmol/L 1.15-1.29 L 22665512) Lab Interpretation (test code = Abnormal 62312-4) [facility] HospitalLactic [id number] 17:50:00 Test Item Value Reference Range Interpretation Comments Lactic Acid (test code = 20998163) 1.4 mmol/L 0.5-2.2 Lab Interpretation (test code = Normal 92484-6) [facility] HospitalUrine Drug [id number] 17:49:00 Test Item Value Reference Range Interpretation Comments Opiate, Ur (test code Negative Negative Calib rated Standard: = 80961-0) Morphine Positi ve if urine level > o r = 300 ng/dL Amphetamine (test code Negative Negative Naun brated Standard: = 32720-9) D-Methamphetami ne Positive if uri ne level > or = 1000 ng/ mL Barbiturate (test code Negative Negative Naun brated Standard: = 43137-3) Secobarbital Po sitive if urine level is > or = 200 ng/mL Benzodiazepine (test Negative Negative Calibr ated Standard: code = 61509-4) Lormethazepa m Positive if urine level is > or = 200 ng/mL Cocaine (test code = Negative Negative Calibr ated Standard: 00218-4) Benzoylecgonine Positive if uri ne level > or = 300 ng/d L PCP (test code = Negative Negative Calibrated Standard: 77953-7) Phencyclidine P ositive if urine level > or = 25 ng/dL Cannabinoid (test code Negative Negative Naun brated Standard: = 50685-3) 11 nor-delta(9) -THC carboxylic acid Positive if uri ne level > or = 50 ng/mL Lab Interpretation Normal (test code = 81555-4) [facility] [id number] 17:45:00 Test Item Value Reference Range Interpretation Comments Troponin I (test code = 21537250) <0.03 <0.04 ng/mL Lab Interpretation (test code = Normal 67931-1) [facility] [id number] 17:45:00 Test Item Value Reference Range Interpretation Comments Sodium (test code = 2951-2) 137 mmol/L 136-145 Potassium (test code = 2823-3) 4.5 mmol/L 3.5-5.1 Chloride (test code = 2075-0) 102 mmol/L 98-107 CO2 (test code = 79251654) 28 mmol/L 21-31 Glucose (test code = 73158664) 305 mg/dL 70-110 H Calcium (test code = 17061737) 8.6 mg/dL 8.6-10.3 Urea Nitrogen (test code = 10.0 mg/dL 7-25 69667407) Creatinine (test code = 0.8 mg/dL 0.7-1.3 52985839) Alkaline Phosphatase (test 83 U/L 34-104 code = 10503308) ALT (test code = 27721978) 8 U/L 7-52 AST (test code = 05296254) 10 U/L 13-39 L Total Protein (test code = 5.7 g/dL 6-8.3 L 2885-2) GFR, Estimated (test code = >90 >=90 mL/min/1.73 m2 56191542) Albumin (test code = 77294-9) 3.4 g/dL 4.2-5.5 L Anion Gap (test code = 7 mmol/L 5-16 77594431) Lab Interpretation (test code Abnormal = 95833-1) [facility] HospitalCT HEAD W/O [id number] 16:34:57IMPRESSION: 1. No acute intracranial abnormality. If [...] with history andclinical signs of enophthalmos. This [facility] radiology report is a preliminary resident dictation [...] correlate with history andclinical signs of enophthalmos.This [facility] radiology report is a preliminary resident dictation untilfinalized by an attending. Changes to this preliminary report may occurin an additional preliminary orfinalized version.I have reviewed the study and agree with the findings in this report.Signed By: Garcia Melendez MD, 05/22/2019 4:34 [facility] TROPONIN I POC docked [id number] 12:52:00 Test Item Value Reference Range Interpretation Comments Troponin POC (test code = 0.00 ng/mL 0-0.08 97055558) Lab Interpretation (test code = Normal 69289-5) [facility] VBG POC docked [id number] 12:47:00 Test Item Value Reference Range Interpretation Comments pH, Richard POC (test code = 7.37 7.33-7.43 06562623) HCO3, Richard POC (test code 27 mmol/L 22-26 H = 12730223) TCO2 POC (test code = 28 mmol/L 21-32 13047243) PO2, Venous POC (BKR) 39 50- 75 mm Hg L (test code = 49411558) pCO2,Richard POC (test code 46.6 38- 50 mmHg = 62865809) Base Excess Richard POC 1 mmol/L (test code = 76618933) Jameson's Test (test code CLAYTON = 68344177) Sample Type (test code = IVEN 67267354) Site (test code = RACH Physician Notified 12900941) Lactic Acid POC (test 2.69 mmol/L 0.4-2 H code = 52818277) % Sat, Richard POC (test 71 % code = 76127995) Lab Interpretation (test Abnormal code = 66529-5) [place] [address] LEAD [id number] 12:10:0812 LEAD EKG FOR CHP Pres[facility] Cardo[facility] Test Date: 9134-34-32Qmo Name: MIGUEL ANGEL YBARRA Department: 6520Patient ID: [id number] Room: LIT PODGender: M Bundle Helper: : 1940 Requested By: AIME Whitmore Number: [id number] Reading MD: James Jones MeasurementsIntervals [place] Rate: 70 P: 55PR: 160 QRS: 68QRSD: 114 T: 33QT: 411 QTc: 445 Interpretive StatementsSINUS RHYTHM WITH OCCASIONAL VENTRICULAR PREMATURE COMPLEXESMODERATE INTRAVENTRICULAR CONDUCTION DELAY [110+ ms QRS DURATION]Electronically Signed On 05-22-2019 12:10:03 [employer] by James Shah [facility] [id number] 11:01:00 Test Item Value Reference Range Interpretation Comments Hold Specimen (test code = 53246817) Complete [facility] HealthPurple [id number] 11:01:00 Test Item Value Reference Range Interpretation Comments Hold Specimen (test code = 21792706) Complete [facility] HospitalPink Top [id number] 11:01:00 Test Item Value Reference Range Interpretation Comments Hold Specimen (test code = 65733995) Complete [facility] Hospital[facility] Top [id number] 11:01:00 Test Item Value Reference Range Interpretation Comments Hold Specimen (test code = 77747415) Complete [facility] HospitalCBC/[id number] 10:51:00 Test Item Value Reference Range Interpretation [...] 35.1 g/dL 32-36 RDW (test code = 18742-1) 38.8 fL 35.1-43.9 Platelet (test code = 777-3) 321 K/uL 150-400 Mean Platelet Volume (test code = 10.3 fL 9.4-12.4 38545-2) Percent NRBC (test code = 77116789) 0.0 % Neutrophil (test code = 770-8) 58.1 % 34-67.9 Lymphs (test code = 736-9) 32.2 % 21.8-50 Monocytes (test code = 5905-5) 3.7 % 5.3-12 L Eos (test code = 713-8) 4.1 % 0.8-5 Basos (test code = 706-2) 1.3 % 0.2-1.2 H Immature Granulocytes (test code = 0.6 % 0-0.5 H 81779594) Neutrophils (Absolute) (test code = 5.62 K/uL 1.78-5.36 H 34161883) Lymphs (Absolute) (test code = 3.12 K/uL 1.32-3.57 56109425) Monocytes(Absolute) (test code = 0.36 K/uL 0.3-0.82 49067045) Eos (Absolute) (test code = 0.40 K/uL 0.04-0.54 80737075) Baso (Absolute) (test code = 0.13 K/uL 0.01-0.08 H 89653796) Immature Grans (Abs) (test code = 0.06 K/uL 0-0.03 H 68802481) Absolute NRBC (test code = 0.00 K/uL 59160698) Lab Interpretation (test code = Abnormal 65908-2) [facility] [id number] 10:49:00 Test Item Value Reference Range Interpretation Comments ALCOHOL, SERUM - RESULT (BKR) (test 0.07 g/dL <0.10 code = 14258144) Lab Interpretation (test code = Normal 51732-0) [facility] HospitalXRAY CHEST 1 [id number] 09:21:06IMPRESSION: No acute abnormality. Signed By: Marsha [...] abnormality.Signed By: Marsha Raymond MD, 05/22/2019 9:21 [facility] BMP POC docked device 2019-05-22 08:51:00 Test Item Value Reference Range Interpretation Comments Sodium POC (test code = 134 mmol/L 136-145 L 40404116) Potassium POC (test code = 3.2 mmol/L 3.5-5.1 L 94754163) Chloride POC (test code = 98 mmol/L 98-107 32352018) TCO2 POC (test code = 23 mmol/L 21-32 64153243) Urea Nitrogen POC (test code 8 mg/dL 7-18 = 70744514) Creatinine POC (test code = 0.9 mg/dL 0.6-1.3 21163082) Glucose POC (test code = 310 mg/dL 74-106 H 75501815) Ionized Calcium POC (test 1.14 mmol/L 1.15-1.29 L code = 21045230) GFR, Estimated (test code = 82 >=90 mL/min/1.73 m2 L 11573251) Hemoglobin POC (test code = 13.9 g/dL 12-16 56752088) Hematocrit POC (test code = 41.0 % 37-47 41104139) Lab Interpretation (test code Abnormal = 10375-5) [facility] [id number] 08:50:26Aime Cheema MD 05/22/2019 8:56 AMBedside UltrasoundDate/Time: 05/22/2019 8:53 AMPerformed by: Aime Cheema MDAuthorized by: Aime Cheema MD Consent: Consent obtained: Verbal Consent given by: PatientComments: Cardiac Ultrasound - parasternal long - normal ventricular caliber, approximtely normal EF. 4 chamber long - normal ventricular caliber, approximtely normal EF.No RV dilationIVC - 1.4 cm to .9cmHVictoria [place] [address] LEAD [id number] 05:47:3812 LEAD EKG FOR CHP [facility] Test Date: 0121-27-65Tpm Name: MIGUEL ANGEL YBARRA Department: 6520Patient ID: [id number] Room: Gender: Bundle Helper: [id number]: 1941 Requested By: MUMTAZ Dobbins Number: [id number] Reading MD: Jelly Espino MeasurementsIntervals [place] Rate: 51 P: 55PR: 161 QRS: 51QRSD: 115 T: 47QT: 426 QTc: 394 Interpretive StatementsSINUS BRADYCARDIAINTRAVENTRICULAR CONDUCTION DELAYElectronically Signed On 03-31-2019 5:47:36 [employer] by Jelly Novak [facility]
[2020-02-12 23:37] LABS: Absolute Lymphocytes (CBC) 1.6 K/uL (0.7-4.9); Basophils % 0.6 % (0-1.3); Hematocrit 44.8 % (39.6-49.0); Lymphocytes % 17.3 % (15.3-44.8); MPV 9.8 fL (7.6-11.3); RBC Red Blood Cell Count 4.94 M/uL (4.33-5.43)
[2020-02-12 23:49] LABS: Albumin 3.7 g/dL (3.4-5.0); Bilirubin Direct 0.1 mg/dL (0-0.2); Bilirubin Total 0.5 mg/dL (0.2-1.0); Potassium 4.1 mmol/L (3.5-5.1)
--- NOTE | 2020-02-13 00:09 | ER ---
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 Denies dysuria. Denies fever. Coronavirus screen: Client denies travel out of the [place] in the last 14 days. Coronavirus screen: At this time, the client does not indicate any symptoms associated with coronavirus-19. Ebola Screen: Patient denies travel to an Ebola-affected area in the 21 days before illness onset. Initial Sepsis Screen: Does the patient meet any 2 criteria? No. Patient's initial sepsis screen is negative. Does the patient have a suspected source of infection? Yes: Skin breakdown/wound. Risk Assessment: Do you want to hurt yourself or someone else? Patient reports no desire to harm self or others. Onset of symptoms was February 10, 2020. 21:59 Method Of Arrival: Ambulatory aj 21:59 Acuity: JASS 4 aj1 Triage Assessment: 22:04 General: Appears in no apparent distress. uncomfortable, Behavior is calm, cooperative, aj1 appropriate for age. Pain: Complains of pain in groin Pain currently is 8 out of 10 on a pain scale. Neuro: Level of Consciousness is awake, alert, obeys commands, Oriented to person, place, time, situation. Historical: - Allergies: 22:04 No Known Allergies; aj1 - Home Meds: 22:04 carvedilol 12.5 mg Oral tab 1 tab 2 times per day [Active]; Centrum Silver Oral aj1 [Active]; glimepiride 4 mg Oral tab 1 tab once daily [Active]; latonoprost [Active]; lisinopril 2.5 mg Oral tab 1 tab once daily [Active]; Metformin Oral [Active]; - PMHx: 22:04 Diabetes - NIDDM; High Cholesterol; Hypertension; aj1 - Immunization history:: Flu vaccine is not up to date. - Social history:: Smoking status: Patient reports the use of cigarette tobacco products, 3 cigarettes per day. Screenin:13 Abuse screen: Denies threats or abuse. Nutritional screening: No deficits noted. jb4 Tuberculosis screening: No symptoms or risk factors identified. Fall Risk None identified. Assessment: 22:13 General: Appears in no apparent distress. uncomfortable, Behavior is calm, cooperative, jb4 appropriate for age. Pain: Complains of pain in groin Pain does not radiate. Pain currently is 5 out of 10 on a pain scale. Neuro: Level of Consciousness is awake, alert, obeys commands, Oriented to person, place, time, situation. Cardiovascular: Patient's skin is warm and dry. Respiratory: Airway is patent Respiratory effort is even, unlabored, Respiratory pattern is regular, symmetrical. GI: No signs and/or symptoms were reported involving the gastrointestinal system. : Lesions noted. EENT: No signs and/or symptoms were reported regarding the EENT system. Derm: Skin is intact, Skin is pink, warm \\T\\ dry. Musculoskeletal: Circulation, motion, and sensation intact. Range of motion: intact in all extremities. 23:00 Reassessment: Patient appears in no apparent distress at this time. Patient and/or jb4 family updated on plan of care and expected duration. Pain level reassessed. Patient is alert, oriented x 3, equal unlabored respirations, skin warm/dry/pink. 02/12 00:00 Reassessment: Patient appears in no apparent distress at this time. Patient and/or jb4 family updated on plan of care and expected duration. Pain level reassessed. Patient is alert, oriented x 3, equal unlabored respirations, skin warm/dry/pink. 00:35 Reassessment: Patient appears in no apparent distress at this time. Patient and/or jb4 family updated on plan of care and expected duration. Pain level reassessed. Patient is alert, oriented x 3, equal unlabored respirations, skin warm/dry/pink. PT verbalized understanding of d/c and follow up instructions. Denies question or concerns. Ambulated out of ED with steady gait. Vital Signs: 02/11 21:55 BP 158 / 79; Pulse 81; Resp 18; Temp 97.9; Pulse Ox 99% on R/A; aj1 09/21 00:10 BP 144 / 80; Pulse 61; Resp 18; Pulse Ox 99% on R/A; [facility] ED Course: 02/11 21:49 Patient arrived in ED. am2 22:03 Triage completed. aj1 22:04 Arm band placed on Patient placed in an exam room. [facility] 22:12 Caleb Mitchell MD is Attending Physician. [facility] 22:13 Ryan Adamson RN is Primary Nurse. banner 22:13 Patient has correct armband on for positive identification. Placed in gown. Bed in low jb4 position. Call light in reach. Side rails up X 1. Pulse ox on. NIBP on. 23:11 Inserted saline lock: 20 gauge in left wrist, using aseptic technique. Blood collected. [facility] 02/12 00:14 Flavio Stewart MD is Referral Physician. [facility] 00:35 No provider procedures requiring assistance completed. IV discontinued, intact, jb4 bleeding controlled, No redness/swelling at site. Pressure dressing applied. Administered Medications: 00:00 Drug: KeFLEX 500 mg Route: PO; 4 00:35 Follow up: Response: No adverse reaction banner 00:00 Drug: DiFLUcan 150 mg Route: PO; 4 00:35 Follow up: Response: No adverse reaction banner Outcome: 00:08 Discharge ordered by . [facility] 00:35 Discharged to home ambulatory, with family. banner 00:35 Condition: stable 00:35 Discharge instructions given to patient, family, Instructed on discharge instructions, follow up and referral plans. medication usage, Demonstrated understanding of instructions, follow-up care, medications, Prescriptions given X 2. 00:44 Patient left the ED. banner Addendum: 02/16/2020 08:18 Addendum: Culture Results: Positive urine culture. No further action required. Bacteria s s sensitive to prescribed antibiotic. Signatures: Gila Abebe RN RN [facility] Lynne Elizondo RN RN Ryan Adamson RN RN 4 Radha Gauthier Kumar Coughlin [facility] Caleb Mitchell MD MD [facility]
--- NOTE | 2020-02-13 00:09 | EDPHYS ---
Physician Documentation [facility] Name: Gerald Lui Age: 79 yrs Sex: Male : 1940 Arrival Date: 02/12/2020 Time: 21:49 Bed 17 Private MD: ED Physician Caleb Mitchell HPI: 02/11 22:36 This 79 yrs old Male presents to ER via Ambulatory with complaints of Penile mh7 Pain. 22:36 The patient presents with sores on penis. Onset: The symptoms/episode began/occurred 2 mh7 day(s) ago. Modifying factors: The symptoms are alleviated by nothing, the symptoms are aggravated by nothing. Associated signs and symptoms: Pertinent negatives: abdominal pain, constipation, diarrhea, dysuria, fever, hematuria, nausea, vomiting. Severity of symptoms: At their worst the symptoms were moderate, 2 day(s) ago, in the emergency department the symptoms are unchanged. The patient has experienced similar episodes in the past, several times. Patient states that he has had pink sores on his penis for 2 days. He has been applying an ointment that his doctor prescribed without much improvement. He denies any dysuria, testicular pain/swelling, penile discharge, fever, nausea, vomiting.. Historical: - Allergies: 22:04 No Known Allergies; aj1 - Home Meds: 22:04 carvedilol 12.5 mg Oral tab 1 tab 2 times per day [Active]; Centrum Silver Oral aj1 [Active]; glimepiride 4 mg Oral tab 1 tab once daily [Active]; latonoprost [Active]; lisinopril 2.5 mg Oral tab 1 tab once daily [Active]; Metformin Oral [Active]; - PMHx: 22:04 Diabetes - NIDDM; High Cholesterol; Hypertension; aj1 - Immunization history:: Flu vaccine is not up to date. - Social history:: Smoking status: Patient reports the use of cigarette tobacco products, 3 cigarettes per day. ROS: 22:36 Constitutional: Negative for fever, chills, and weight loss, Eyes: Negative for injury, mh7 pain, redness, and discharge, ENT: Negative for injury, pain, and discharge, Neck: Negative for injury, pain, and swelling, Cardiovascular: Negative for chest pain, palpitations, and edema, Respiratory: Negative for shortness of breath, cough, wheezing, and pleuritic chest pain, Abdomen/GI: Negative for abdominal pain, nausea, vomiting, diarrhea, and constipation, Back: Negative for injury and pain, MS/Extremity: Negative for injury and deformity, Neuro: Negative for headache, weakness, numbness, tingling, and seizure, Psych: Negative for depression, anxiety, suicide ideation, homicidal ideation, and hallucinations, Allergy/Immunology: Negative for hives, rash, and allergies, Endocrine: Negative for neck swelling, polydipsia, polyuria, polyphagia, and marked weight changes, Hematologic/Lymphatic: Negative for swollen nodes, abnormal bleeding, and unusual bruising. Exam: 22:36 Constitutional: This is a well developed, well nourished patient who is awake, alert, mh7 and in no acute distress. Head/Face: Normocephalic, atraumatic. Eyes: Pupils equal round and reactive to light, extra-ocular motions intact. Lids and lashes normal. Conjunctiva and sclera are non-icteric and not injected. Cornea within normal limits. Periorbital areas with no swelling, redness, or edema. Neck: Trachea midline, no thyromegaly or masses palpated, and no cervical lymphadenopathy. Supple, full range of motion without nuchal rigidity, or vertebral point tenderness. No Meningismus. Chest/axilla: Normal chest wall appearance and motion. Nontender with no deformity. No lesions are appreciated. Cardiovascular: Regular rate and rhythm with a normal S1 and S2. No gallops, murmurs, or rubs. Normal PMI, no JVD. No pulse deficits. Respiratory: Lungs have equal breath sounds bilaterally, clear to auscultation and percussion. No rales, rhonchi or wheezes noted. No increased work of breathing, no retractions or nasal flaring. Abdomen/GI: Soft, non-tender, with normal bowel sounds. No distension or tympany. No guarding or rebound. No evidence of tenderness throughout. Back: No spinal tenderness. No costovertebral tenderness. Full range of motion. 22:36 Skin: Warm, dry with normal turgor. Normal color with no rashes, no lesions, and no evidence of cellulitis. MS/ Extremity: Pulses equal, no cyanosis. Neurovascular intact. Full, normal range of motion. Neuro: Awake and alert, GCS 15, oriented to person, place, time, and situation. Cranial nerves II-XII grossly intact. Motor strength 5/5 in all extremities. Sensory grossly intact. Cerebellar exam normal. Normal gait. Psych: Awake, alert, with orientation to person, place and time. Behavior, mood, and affect are within normal limits. 22:36 : CVA tenderness, is absent, Male external genitalia: erythema, of the head of penis is seen, that is mild, penile discharge, is absent, swelling, of the head of penis is noted, penile, that is mild, ulceration, of the head of penis is present, that is small, without appreciated drainage, Bladder: is normal. 02/12 00:11 : uncircumcised, no phimosis or paraphimosis, foreskin is easily retractable and mh7 replaced over glans penis.. Vital Signs: 02/11 21:55 BP 158 / 79; Pulse 81; Resp 18; Temp 97.9; Pulse Ox 99% on R/A; aj1 02/12 00:10 BP 144 / 80; Pulse 61; Resp 18; Pulse Ox 99% on R/A; dh4 MDM: 02/11 22:27 Patient medically screened. [facility] 02/12 00:05 Differential diagnosis: UTI, urethritis, Balanitis, Balanposthitis. Data reviewed: [facility] vital signs, nurses notes, lab test result(s), CBC, electrolytes. Data interpreted: Pulse oximetry: on room air is 99 %. Interpretation: normal. Counseling: I had a detailed discussion with the patient and/or guardian regarding: the historical points, exam findings, and any diagnostic results supporting the discharge/admit diagnosis, the presence of at least one elevated blood pressure reading (>120/80) during this emergency department visit, lab results, the need for outpatient follow up, to return to the emergency department if symptoms worsen or persist or if there are any questions or concerns that arise at home. Response to treatment: the patient's symptoms have mildly improved after treatment. 02/11 22:44 Order name: CBC with Diff; Complete Time: 23:46 [facility] 02/11 22:44 Order name: Basic Metabolic Panel; Complete Time: 23:52 [facility] 02/11 22:44 Order name: LFT's; Complete Time: 23:52 [facility] 02/11 22:54 Order name: Glucose, Ancillary Testing; Complete Time: 23:30 [facility] 02/11 23:32 Order name: Urine Dipstick--Ancillary (enter results) ms5 02/11 23:54 Order name: Urine Culture [facility] 02/11 22:44 Order name: Urine Dipstick-Ancillary (obtain specimen); Complete Time: 23:31 [facility] Administered Medications: 00:00 Drug: KeFLEX 500 mg Route: PO; [facility] 00:35 Follow up: Response: No adverse reaction [facility] 00:00 Drug: DiFLUcan 150 mg Route: PO; [facility] 00:35 Follow up: Response: No adverse reaction [facility] Disposition: 02/13/20 00:08 Discharged to Home. Impression: Balanitis, UTI, Hyperglycemia. - Condition is Stable. - Discharge Instructions: Balanitis, Urinary Tract Infection, Adult, [id number], Hyperglycemia, [id number]. - Prescriptions for Keflex 500 mg Oral Capsule - take 1 capsule by ORAL route every 6 hours for 7 days; 28 capsule. Nystatin- Triamcinolone 100,000-0.1 unit/g-% Topical Cream - apply 1 application by TOPICAL route 2 times per day; 1 tube. - Medication Reconciliation Form, Thank You Letter, Antibiotic Education, Prescription Opioid Use form. - Follow up: Private Physician; When: 1 - 2 days; Reason: Worsening of condition, Recheck today's complaints, Continuance of care, Re-evaluation by your physician. Follow up: Flavio Stewart MD; When: 1 - 2 days; Reason: Worsening of condition, Recheck today's complaints. - Problem is an acute exacerbation. - Symptoms have improved. Signatures: Dispatcher [employer] [facility] Gila Abebe RN RN aj1 Ryan Adamson RN RN jb4 Caleb Mitchell MD MD mh7 Corrections: (The following items were deleted from the chart) 00:14 00:08 02/13/2020 00:08 Discharged to Home. Impression: Balanitis; UTI; Hyperglycemia. [facility] Condition is Stable. Forms are Medication Reconciliation Form, Thank You Letter, Antibiotic Education, Prescription Opioid Use. Follow up: Private Physician; When: 1 - 2 days; Reason: Worsening of condition, Recheck today's complaints, Continuance of care, Re-evaluation by your physician. Problem is an acute exacerbation. Symptoms have improved. mh7 00:44 00:14 02/13/2020 00:08 Discharged to Home. Impression: Balanitis; UTI; Hyperglycemia. jb4 Condition is Stable. Discharge Instructions: Balanitis, Urinary Tract Infection, Adult, [id number], Hyperglycemia, [id number]. Prescriptions for Keflex 500 mg Oral Capsule - take 1 capsule by ORAL route every 6 hours for 7 days; 28 capsule, Nystatin-Triamcinolone 100,000-0.1 unit/g-% Topical Cream - apply 1 application by TOPICAL route 2 times per day; 1 tube. and Forms are Medication Reconciliation Form, Thank You Letter, Antibiotic Education, Prescription Opioid Use. Follow up: Private Physician; When: 1 - 2 days; Reason: Worsening of condition, Recheck today's complaints, Continuance of care, Re-evaluation by your physician. Follow up: Flavio Stewart; When: 1 - 2 days; Reason: Worsening of condition, Recheck today's complaints. Problem is an acute exacerbation. Symptoms have improved. 7
[2020-02-13] MEDS ORDERED: CEPHALEXIN 250 MG CAP ONE (00:12)
[2020-02-13] MEDS ORDERED: FLUCONAZOLE 100 MG TAB ONE (00:12)
[2020-02-13 00:55] VITALS: TEMP 97.9; O2SAT 99
[2020-02-13 00:56] VITALS: BP 144/80
[2020-02-13 01:07] LABS: Urine Blood NEGATIVE (NEG); Urine Glucose 2+ (NEG); Urine Protein NEGATIVE (NEG)
== END 2020-02-13 00:44 | disposition home or self-care (01) ==
LOC: ER 21:44
DX: N48.1 Balanitis (principal); N39.0 Urinary tract infection, site not specified; E11.65 Type 2 diabetes mellitus with hyperglycemia; I10 Essential (primary) hypertension; E78.00 Pure hypercholesterolemia, unspecified; F17.210 Nicotine dependence, cigarettes, uncomplicated
CPT/HCPCS: 36415; 80048; 80076; 81003; 82947; 85025; 87077; 87086; 87088; 87186; 99284

== ENCOUNTER 2021-10-09 15:16 | Observation (INO) | payer OTHER ==
--- OUTSIDE RECORDS SUMMARY | 2021-10-09 15:19 | XMS REPORT | Continuity of Care Document ---
:1940 Author Organization [facility] t Address [address] [place] [address] Care Team Providers Name Role Phone Nevaeh STRONG Primary Care Physician Unavailable [place] Attending Clinician Unavailable ANNA Attending Clinician Unavailable Gerardo Russell Attending Clinician Unavailable ANAY Attending Clinician Unavailable HOA Attending Clinician Unavailable DANAE Attending Clinician Unavailable Fly PIÑA Attending Clinician Unavailable PUJA Attending Clinician Unavailable Rahul THOMAS Attending Clinician Unavailable ANNA Attending Clinician Unavailable OLIVIA Attending Clinician Unavailable Kennedi Admitting Clinician Unavailable Payers Payer Name Policy Type Policy Number Effective Date Expiration Date S ource HUMANA MEDICARE [id number] 2019 2024 ADVANTAGE HMO 00:00:00 00:00:00 [employer] [id number] 2013 2024 PLUS MMP 00:00:00 00:00:00 [employer] [id number] 2019 00:00:00 [facility] [id number] 2005 OON 00:00:00 HUMANA OON [id number] 2019 00:00:00 Problems Condition Condition Condition Status Onset Resolution Last Treating Co mments Source Name Details Category Date Date Treatment Clinician Date 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 [place] 10[facility] [place] 00:[place] arteries arteries 00 of of [facility] with s with intermitte intermitte nt nt claudicati claudicati on, on, bilateral bilateral legs legs Peripheral Peripheral Disease Active U T arterial arterial 10-29 Health disease disease 00:00: 00 Essential Essential Disease Active UT hypertensi hypertensi 10-29 He alth on on 00:00: 00 Carotid Carotid Disease Active UT stenosis, stenosis, 10-29 Heal th bilateral bilateral 00:00: 00 Pacemaker Pacemaker Disease Active [place] 10-29 Health 00:00: 00 Allergies, Adverse Reactions, Alerts Allergy Allergy Status Severity Reaction(s) Onset Inactive Treating Comm ents Source Name Type Date Date Clinician No Known DA Active U [facility] 09[facility]17 [facility] Social History Social Habit Start Date Stop Date Quantity Comments Source Exposure to Not sure [facility] SARS-CoV-2 (event) Tobacco use and 2020-10-29 2020-10-29 Former smokeless [facility] exposure 00:00:00 00:00:00 tobacco user Alcohol intake 2020-10-29 2020-10-29 Lifetime [facility] 00:00:00 00:00:00 non-drinker (finding) Sex Assigned At [birth year] [facility] 00:00:00 00:00:00 Smoking Status Start Date Stop Date Source Tobacco smoking consumption unknown [facility] Smokes tobacco daily 2020-10-29 00:00:00 [facility] Medications Ordered Filled Start Stop Current Ordering Indication Dosage Frequency Signature Comments Components Source Medication Medication Date Date Medication? Clinician (SIG) Name Name lidocaine 2020-05- No [id number] 1mL UT (Xylocaine) 05-24 [id number] Healt h 1 % 14:27: 14:27 injection 1 25 :00 mL bupivacaine 2020-05- No [id number] 1mL UT PF 05-24 [id number] Health (Marcaine) 14:27: 14:27 0.5 % 25 :00 injection 1 mL methylPREDN 2020-05- No [id number] 40mg UT ISolone 05-24 [id number] Health acetate 14:27: 14:27 (DEPO-Medro 25 :00 l) injection 40 mg methylPREDN 2020-05- No [id number] 40mg 40 mg, UT ISolone 05-24 [id number] Intra-irwin Hea lth acetate 14:27: 14:27 cular, (DEPO-Medro 25 :00 Once PRN l) Procedure, injection Starting 40 mg on Thu05/24/21 at 0827, For 1 dose bupivacaine 2020-05- No [id number] 1mL 1 mL, UT PF 05-24 [id number] Injection, Health (Marcaine) 14:27: 14:27 Once PRN 0.5 % 25 :00 Procedure, injection 1 Starting mL on Thu05/24/21 at 0827, For 1 dose lidocaine 2020-05- No [id number] 1mL 1 mL, UT (Xylocaine) 05-24 [id number] Injection, Health 1 % 14:27: 14:27 Once PRN injection 1 25 :00 Procedure, mL Starting on Thu05/24/21 at 0827, For 1 dose METFORMIN 2020-05 Yes Take by UT HCL PO 2-13 mouth. Health 09:50: 08 GLIPIZIDE 2020-05 Yes Take by UT PO 2-13 mouth. Health 09:50: 08 linaGLIPtin 2020-05 Yes Take by UT (TRADJENTA 2-13 mouth. Health PO) 09:50: 08 METFORMIN 2020-05 Yes Take by UT HCL PO 2-13 mouth. Health 09:50: 08 GLIPIZIDE 2020-05 Yes Take by UT PO 2-13 mouth. Health 09:50: 08 linaGLIPtin 2020-05 Yes Take by UT (TRADJENTA 2-13 mouth. Health PO) 09:50: 08 METFORMIN 2020-05 Yes Take by UT HCL PO 2-13 mouth. Health 09:50: 08 GLIPIZIDE 2020-05 Yes Take by UT PO 2-13 mouth. Health 09:50: 08 linaGLIPtin 2020-05 Yes Take by UT (TRADJENTA 2-13 mouth. Health PO) 09:50: 08 atorvastati 2019-0 Yes 40mg 40 mg. UT n (Lipitor) 1-14 Health 40 MG 00:00: tablet 00 lisinopril 2019-0 Yes 2.5mg 2.5 mg. UT 2.5 MG 06-07 Health tablet 00:00: 00 atorvastati 2020-0 Yes 40mg 40 mg. UT n (Lipitor) 06-07 Health 40 MG 00:00: tablet 00 lisinopril 2020-0 Yes 2.5mg 2.5 mg. UT 2.5 MG 06-07 Health tablet 00:00: 00 atorvastati 2020-0 Yes 40mg 40 mg. UT n (Lipitor) 06-07 Health 40 MG 00:00: tablet 00 lisinopril 2019-0 Yes 2.5mg 2.5 mg. UT 2.5 MG 06-07 Health tablet 00:00: 00 Procedures Procedure Date / Time Performed Performing Clinician Sourc e HI ARTHROCENTESIS ASPIR&/INJ 2021-05-24 14:27:25 Ryan Guthrie [facility] MAJOR JT/BURSA W/O US XR SHOULDER 2+ VIEWS RIGHT 2021-05-07 20:05:00 Ryan Guthrie [facility] Encounters Start End Encounter Admission Attending Care Care Encounter Source Date/Time Date/Time Type Type Clinicians Facility Department ID 2021-05-13 Outpatient [facility] [id number] [place] 12:54:18 [facility] 2021-04-16 Outpatient [facility] [id number] [place] 09:08:37 [facility] 2020-10-18 Outpatient GIULIAWENDY, [facility] [id number] [place] 01:04:07 [facility] 2020-09-29 [facility] [id number] [place] 03:15:20 [facility] 2021-09-17 2021-09-17 Emergency EM ESCOBAR Russell [facility] [id number] [facility] 19:20:00 21:25:00 Ryan [id number] [facility] 2021-09-17 2021-09-17 Emergency EM [facility] [id number] [facility] 19:20:00 21:25:00 Ryan Silva [facility] 2021-05-24 2021-05-24 Office ROSARIO Guthrie [id number] [place] 07:30:00 08:27:56 Visit Ryan CONDON [id number] Health T CARE [id number] CENTER AT [id number] [facility] 2021-05-07 2021-05-07 Office ROSARIO Guthrie [id number] [place] 14:00:00 15:04:28 Visit Ryan CONODN [id number] Health T CARE [id number] CENTER AT [id number] [facility] 2021-05-07 2021-05-07 EXT [facility] OP [place], MIKE [facility] [id number] [place] 00:00:00 00:00:00 Ryan ARCHIBALD [id number] H ealth [id number] 2021-02-01 2021-02-01 [id number] [facility] 00:00:00 00:00:00 GIANNI 2021-01-10 2021-01-10 [facility] [id number] [facility] 00:00:00 00:00:00 ASHLIE 2021-01-03 2021-01-03 [facility] [id number] [facility] 10:22:46 11:35:48 SHERRY 2020-12-13 2020-12-14 [id number] [place] 02:45:00 17:36:00 MARY ANNE austin 2020-12-13 2020-12-13 Emergency PUJA ZAINA [facility] [id number] [place] 08:23:13 09:30:48 [facility] 2020-12-13 2020-12-13 Emergency MARTHA, [facility] [id number] Live 04:13:31 04:21:40 KARISSA cardoza 2020-12-13 2020-12-13 Emergency MARTHA, [facility] [id number] Live 04:13:26 04:18:52 KARISSA cardoza 2020-12-13 2020-12-13 Emergency [facility] [id number] Live 03:06:24 03:45:19 Health 2020-09-27 2020-09-27 EXT [facility] MIKE Barton [facility] [id number] [place] 00:00:00 00:00:00 Parrish LOCATION [id number] H [facility] [id number] 2020-09-17 2020-09-17 Outpatient ANNA [facility] [id number] [facility] 11:45:00 16:23:00 PARRISH 2019-12-05 2019-12-05 Outpatient [facility] [id number] [facility] 00:00:00 00:00:00 2019-12-01 2019-12-01 Outpatient OLIVIA, [facility] [id number] [facility] 09:25:55 09:25:55 ENJOLI 2019-05-24 2019-05-24 Outpatient [facility] [id number] [place] 00:00:00 00:00:00 Health 2019-05-23 2019-05-23 Outpatient [facility] [id number] [place] 06:35:36 06:35:36 Health 2019-05-22 2019-05-22 Emergency [facility] [id number] [place] 12:56:01 12:56:01 Health 2019-05-22 2019-05-22 Emergency [facility] [id number] [place] 09:00:50 09:00:50 Health 2019-05-22 2019-05-22 Outpatient [facility] [id number] [place] 08:30:13 08:30:13 Health 2019-03-31 2019-03-31 Emergency [facility] [id number] [place] 04:34:39 04:34:39 Health Results This patient has no known results.
[2021-10-09 15:54] LABS: Absolute Lymphocytes (CBC) 1.4 K/uL (0.7-4.9); Hematocrit 45.2 % (39.6-49.0); Lymphocytes % 17.2 % (15.3-44.8); MPV 8.6 fL (7.6-11.3)
--- NOTE | 2021-10-09 16:07 | RAD REPORT ---
EXAM DESCRIPTION: CT - Head Brain Wo Cont - 10/09/2021 3:51 pm CLINICAL HISTORY: dizziness COMPARISON: Head Brain Wo Cont dated 12/11/2018; Head Brain Wo Cont dated 11/03/2017 TECHNIQUE: All CT scans are performed using dose optimization technique as appropriate and may inclu de automated exposure control or mA/KV adjustment according to patient size. FINDINGS: No intracranial hemorrhage, hydrocephalus or extra-axial fluid collection.No areas of brai n edema or evidence of midline shift. Remote right cerebellar hemisphere infarct. Cerebral atrophy. The paranasal sinuses and mastoids are clear. The calvarium is intact. IMPRESSION: No acute intracranial abnormality.
--- NOTE | 2021-10-09 16:14 | RAD REPORT ---
EXAM DESCRIPTION: RAD - Chest Single View - 10/09/2021 3:57 pm CLINICAL HISTORY: lightheaded COMPARISON: Chest Single View dated 02/01/2020; Chest Single View dated 11/03/2017; CHEST PA AND LAT 2 VIEW dated 11/23/2014; CHEST SINGLE VIEW dated 11/14/2013 FINDINGS: Lines: Pacemaker. Lungs: No evidence of edema or pneumonia. Pleural: No significant pleural effusions or pneumothorax. Cardiac: The heart size is within normal limits. Bones: No acute fractures. Other: IMPRESSION: No acute cardiopulmonary disease.
[2021-10-09 16:15] LABS: Potassium 3.7 mmol/L (3.5-5.1)
[2021-10-09] MEDS ORDERED: ONDANSETRON 4 MG/2 ML VIAL ONE (17:02)
--- NOTE | 2021-10-09 18:30 | RAD REPORT ---
EXAM DESCRIPTION: CTAbdomen Pelvis W Contrast - 10/09/2021 6:12 pm CLINICAL HISTORY: Abdominal pain, acute, nonlocalized COMPARISON: CT ABD PELVIS W CONTRAST dated 11/23/2007 TECHNIQUE: CT of the abdomen and pelvis was performed. All CT scans are performed using dose optimization technique as appropriate and may include automated exposure control or mA/KV adjustment according to patient size. FINDINGS: Lower chest: Pacemaker leads. Liver: No acute abnormality or suspicious lesions. Biliary: No biliary ductal dilatation. Stomach: No significant focal abnormality. Duodenum: No significant focal abnormality. Pancreas: No significant abnormality. Spleen: No significant abnormality. Adrenal: No suspicious lesions. Kidney/ureter: No hydronephrosis. No renal calculi. Too small to characterize renal lesions which are likely cysts. Retroperitoneum: No retroperitoneal adenopathy. Vascular: No aneurysm. Atherosclerosis. Bowel: No significant focal abnormality. Appendectomy Peritoneum: No ascites or free air. Bladder: Grossly unremarkable. Reproductive: No adnexal masses. Bones: No acute fracture. Remote appearing T9 and T10 compression fractures. Other: n/a IMPRESSION: No acute intra-abdominal or pelvic finding. Appendectomy.
--- NOTE | 2021-10-09 19:39 | EDPHYS ---
Physician Documentation [facility] Name: Gerald Lui Age: 81 yrs Sex: Male : 1940 Arrival Date: 10/09/2021 Time: 15:18 Bed 17 Private MD: ED Physician Atiilo Wolf HPI: 10/09 15:20 This 81 yrs old Male presents to ER via Unassigned with complaints of ms3 lightheaded. 15:20 The patient presents with feeling faint, lightheadedness. Onset: The symptoms/episode ms3 began/occurred 5.5 hour(s) ago. Context: just prior to the episode the patient experienced no apparent symptoms. Modifying factors: The symptoms are alleviated by nothing, the symptoms are aggravated by nothing. Associated signs and symptoms: Pertinent positives: nausea, Pertinent negatives: vomiting. Severity of symptoms: At their worst the symptoms were moderate in the emergency department the symptoms are unchanged. Historical: - Allergies: 15:21 No Known Allergies; bp - Home Meds: 15:21 carvedilol 12.5 mg Oral tab 1 tab 2 times per day [Active]; Centrum Silver Oral bp [Active]; glimepiride 4 mg Oral tab 1 tab once daily [Active]; latonoprost [Active]; lisinopril 2.5 mg Oral tab 1 tab once daily [Active]; Metformin Oral [Active]; - PMHx: 15:21 Diabetes - NIDDM; High Cholesterol; Hypertension; PACER; bp - Immunization history:: Adult Immunizations up to date. - Social history:: Smoking status: Patient denies any tobacco usage or history of. ROS: 15:20 Constitutional: Negative for fever, and chills. Eyes: Negative for injury, pain, ms3 redness, and discharge, Neck: Negative for injury, pain, and swelling, Cardiovascular: Negative for chest pain, and palpitations. Respiratory: Negative for shortness of breath, cough, wheezing, and pleuritic chest pain, Abdomen/GI: Negative for abdominal pain, nausea, vomiting, diarrhea, and constipation, MS/Extremity: Negative for injury and deformity, Skin: Negative for injury, rash, and discoloration. 15:20 Neuro: Positive for lightheaded. 15:20 All other systems are negative. Exam: 15:20 Constitutional: This is a well developed, well nourished patient who is awake, alert, ms3 and in no acute distress. Neck: Trachea midline, no cervical lymphadenopathy. Supple, full range of motion without nuchal rigidity, or vertebral point tenderness. No Meningismus. Chest/axilla: Normal chest wall appearance and motion. Nontender with no deformity. Cardiovascular: Regular rate and rhythm with a normal S1 and S2. No gallops, murmurs, or rubs. Normal PMI, no JVD. No pulse deficits. Respiratory: Lungs have equal breath sounds bilaterally, clear to auscultation and percussion. No rales, rhonchi or wheezes noted. No increased work of breathing, no retractions or nasal flaring. Abdomen/GI: Soft, non-tender, with normal bowel sounds. No distension or tympany. No guarding or rebound. No evidence of tenderness throughout. Skin: Warm, dry with normal turgor. Normal color with no rashes, no lesions, and no evidence of cellulitis. Neuro: Awake and alert, GCS 15, oriented to person, place, time, and situation. Cranial nerves II-XII grossly intact. Motor strength 5/5 in all extremities. Sensory grossly intact. Cerebellar exam normal. Normal gait. Psych: Awake, alert, with orientation to person, place and time. Behavior, mood, and affect are within normal limits. 15:38 ECG was reviewed by the Attending Physician. ms3 Vital Signs: 15:20 BP 168 / 84; Pulse 70; Resp 15; Temp 98.1; Pulse Ox 96% ; bp 17:15 BP 124 / 55; Pulse 65; Resp 12; Pulse Ox 96% ; bp 18:30 BP 133 / 83; Pulse 68; Resp 12; Pulse Ox 98% ; bp 19:28 BP 139 / 54; Pulse 59; Resp 17; Pulse Ox 97% on R/A; lg3 MDM: 15:18 Patient medically screened. ms3 15:20 Differential diagnosis: cardiac arrhythmia, vertigo, ACS. ms3 16:58 ED course: Patient ambulatory at this time with steady gait. Orthostatic vitals checked ms3 and patient is not orthostatic. Patient complaining of nausea at this time. Will give 4 mg Zofran.. 17:40 ED course: On re-evaluation patient continues to have nausea. On re-evaluation patient ms3 has lower abdominal tenderness. Will obtain CT abd/pelvis.. 19:17 Transition of care: After a detail discussion of the patient's case, care is ms3 transferred to Atilio Wolf MD. 19:35 Data reviewed: vital signs, nurses notes, lab test result(s), radiologic studies, CT rn scan, and as a result, I will admit patient. Counseling: I had a detailed discussion with the patient and/or guardian regarding: the historical points, exam findings, and any diagnostic results supporting the discharge/admit diagnosis, lab results, radiology results, the need for further work-up and treatment in the hospital. Response to treatment: There is no appreciated change of the patient's symptoms at this time, and as a result, I will admit patient. Admission orders: after a detailed discussion of the patient's condition and case, the admit orders are written by me. ED course: Pt still nauseated, doesn't feel well, still dizzy, CT abdomen neg, tried to get CTA head/neck to rule out neuro cause, unable to give another contrast bolus per radiology, will obs overnight for more studies in AM.. 10/09 15:19 Order name: Basic Metabolic Panel; Complete Time: 16:35 ms3 10/09 15:19 Order name: CBC with Diff; Complete Time: 16:35 ms3 10/09 15:19 Order name: NT PRO-BNP; Complete Time: 16:35 ms3 10/09 15:19 Order name: Troponin HS; Complete Time: 16:35 ms3 10/09 19:46 Order name: COVID-19 SARS RT PCR (Document "Date of Onset" if Symptomatic) mw2 10/09 21:46 Order name: Glucose, Ancillary Testing EDKY 10/09 15:19 Order name: XRAY Chest (1 view); Complete Time: 16:16 ms3 10/09 15:19 Order name: CT Head Brain wo Cont; Complete Time: 16:16 ms3 10/09 17:40 Order name: CT Abd/Pelvis - IV Contrast Only; Complete Time: 18:52 ms3 10/10 09:02 Order name: Glucose, Ancillary Testing EDMS 10/10 09:53 Order name: Glucose, Ancillary Testing EDMS 10/10 12:39 Order name: Glucose, Ancillary Testing EDMS 10/10 16:59 Order name: Glucose, Ancillary Testing EDMS 10/09 15:19 Order name: EKG; Complete Time: 15:20 ms3 10/09 15:19 Order name: Cardiac monitoring; Complete Time: 16:06 ms3 10/09 15:19 Order name: EKG - Nurse/Tech; Complete Time: 16:06 ms3 10/09 15:19 Order name: IV Saline Lock; Complete Time: 16:06 ms3 10/09 15:19 Order name: Labs collected and sent; Complete Time: 16:06 ms3 10/09 15:19 Order name: O2 Per Protocol; Complete Time: 15:25 ms3 10/09 15:19 Order name: O2 Sat Monitoring; Complete Time: 15:25 ms3 10/10 08:57 Order name: CT EDMS 10/10 09:12 Order name: CT EDMS EC:38 Rate is 66 beats/min. Rhythm is regular. QRS [place] is Normal. MT interval is normal. QRS ms3 interval is normal. Clinical impression: NSR with PVC. Interpreted by me. Administered Medications: 17:05 Drug: Zofran (Ondansetron) 4 mg Route: IVP; Site: right antecubital; bp 19:17 Follow up: Response: No adverse reaction lg3 Disposition Summary: 10/09/21 19:39 Hospitalization Ordered Hospitalization Status: Observation rn Provider: Ahsan Brooks rn Condition: Stable rn Problem: new rn Symptoms: are unchanged rn Bed/Room Type: Standard rn Location: Telemetry/MedSurg (observation)(10/10/21 17:27) dw Room Assignment: [facility](10/10/21 17:27) Diagnosis - Dizziness and giddiness rn - Nausea with vomiting, unspecified rn Forms: - Medication Reconciliation Form rn - SBAR form rn Signatures: Dispatcher [employer] EDMS Lilia Haddad RN RN dw Atilio Wolf MD MD rn Wilbert Callahan Brian RN RN bp Tenzin Clark DO DO ms3 Rosa Isela Solomon RN lg3 Corrections: (The following items were deleted from the chart) 19:18 18:59 Head Angio+CT.RAD.BRZ ordered. EDMS EDMS 19:18 19:01 Neck Angio+CT.RAD.BRZ ordered. EDMS EDMS 20:35 19:39 Telemetry/MedSurg (observation) rn oe 20:35 19:39 rn oe 10/10 17:27 0518 20:35 [facility] ER HOLD oe dw 10/10 17:10/09 20:35 ERHOLD- oe dw
--- NOTE | 2021-10-09 19:39 | ER ---
Nurse's Notes [facility] Name: Gerald Lui Age: 81 yrs Sex: Male : 1940 Arrival Date: 10/09/2021 Time: 15:18 Bed 17 Private MD: Diagnosis: Dizziness and giddiness;Nausea with vomiting, unspecified Presentation: 10/09 15:20 Chief complaint: EMS states: DIZZY AND MALAISE SINCE 10AM. Coronavirus screen: At this bp time, the client does not indicate any symptoms associated with coronavirus-19. Ebola Screen: No symptoms or risks identified at this time. Initial Sepsis Screen: Does the patient meet any 2 criteria? No. Patient's initial sepsis screen is negative. Does the patient have a suspected source of infection? No. Patient's initial sepsis screen is negative. Risk Assessment: Do you want to hurt yourself or someone else? Patient reports no desire to harm self or others. Onset of symptoms was October 09, 2021 at 10:00. Care prior to arrival: IV initiated. 18 GA, in the left antecubital area, Glucose check: 103. 15:20 Method Of Arrival: EMS: [facility] bp 15:20 Acuity: JASS 3 bp Triage Assessment: 15:21 General: Appears in no apparent distress. comfortable, Behavior is cooperative, bp appropriate for age, anxious. Pain: Denies pain. EENT: No deficits noted. Neuro: Reports dizziness. Cardiovascular: Rhythm is Respiratory: No deficits noted. GI: No signs and/or symptoms were reported involving the gastrointestinal system. : No signs and/or symptoms were reported regarding the genitourinary system. Derm: No deficits noted. Musculoskeletal: No deficits noted. Historical: - Allergies: 15:21 No Known Allergies; bp - Home Meds: 15:21 carvedilol 12.5 mg Oral tab 1 tab 2 times per day [Active]; Centrum Silver Oral bp [Active]; glimepiride 4 mg Oral tab 1 tab once daily [Active]; latonoprost [Active]; lisinopril 2.5 mg Oral tab 1 tab once daily [Active]; Metformin Oral [Active]; - PMHx: 15:21 Diabetes - NIDDM; High Cholesterol; Hypertension; PACER; bp - Immunization history:: Adult Immunizations up to date. - Social history:: Smoking status: Patient denies any tobacco usage or history of. Screenin:24 Abuse screen: Denies threats or abuse. Denies injuries from another. Nutritional bp screening: No deficits noted. Tuberculosis screening: No symptoms or risk factors identified. Fall Risk None identified. Assessment: 15:24 General: SEE TRIAGE NOTE. bp 17:15 Reassessment: PT RETURNED FROM CT. bp 18:30 Reassessment: Patient appears in no apparent distress at this time. PT RETURNED FROM bp F/U CT. Vital Signs: 15:20 BP 168 / 84; Pulse 70; Resp 15; Temp 98.1; Pulse Ox 96% ; bp 17:15 BP 124 / 55; Pulse 65; Resp 12; Pulse Ox 96% ; bp 18:30 BP 133 / 83; Pulse 68; Resp 12; Pulse Ox 98% ; bp 19:28 BP 139 / 54; Pulse 59; Resp 17; Pulse Ox 97% on R/A; lg3 ED Course: 15:18 Patient arrived in ED. ms3 15:18 Tenzin Clark DO is Attending Physician. ms3 15:19 Alexandru Erwin, RN is Primary Nurse. bp 15:21 Triage completed. bp 15:21 Arm band placed on. bp 15:24 Patient has correct armband on for positive identification. Bed in low position. Call bp light in reach. Side rails up X2. 15:24 Maintain EMS IV. Dressing intact. Good blood return noted. Site clean \T\ dry. Gauge \T\ bp site: 20 G R AC. 15:53 CT Head Brain wo Cont In Process Unspecified. EDMS 15:59 XRAY Chest (1 view) In Process Unspecified. EDMS 18:14 CT Abd/Pelvis - IV Contrast Only In Process Unspecified. EDMS 18:54 Attending Physician role handed off by Tenzin Clark DO rn 18:54 Atilio Wolf MD is Attending Physician. rn 19:15 Primary Nurse role handed off by Alexandru Erwin, YOSI mw2 19:16 Rosa Isela Solomon, YOSI is Primary Nurse. lg3 19:38 Ahsan Brooks is Hospitalizing Provider. rn 10/10 04:31 Primary Nurse role handed off by Rosa Isela Solomon RN mw2 07:00 Alexandru Erwin, YOSI is Primary Nurse. bp 18:36 No provider procedures requiring assistance completed. Patient admitted, IV remains in ap3 place. Administered Medications: 10/09 17:05 Drug: Zofran (Ondansetron) 4 mg Route: IVP; Site: right antecubital; bp 19:17 Follow up: Response: No adverse reaction lg3 Medication: 15:24 VIS not applicable for this client. bp Outcome: 19:39 Decision to Hospitalize by Provider. rn 10/10 18:36 Admitted to ER Hold. Please see [facility] for further documentation. ap3 Condition: good Instructed on the need for admit. 18:50 Patient left the ED. bp Signatures: Dispatcher [employer] EDMS Atilio Wolf MD MD rn Peltier, Brian RN RN Radha Whitaker RN RN ap3 Mag Sotelo 2 Rosa Isela Solomon RN RN lg3 Tenzin Clark DO DO ms3
[2021-10-09] MEDS ORDERED: ACETAMINOPHEN 500 MG TAB PO PRN (21:23)
[2021-10-09] MEDS ORDERED: ONDANSETRON 4 MG/2 ML VIAL IV PRN (21:23)
[2021-10-09] MEDS ORDERED: HYDRALAZINE HCL 20 MG/ML VIAL IV PRN (21:23)
[2021-10-09] MEDS: Ringers Lactate 1,000 ML IV SCH (21:23)
[2021-10-09] MEDS: INSULIN -REGULAR HUMAN 50 UNIT/0.5 ML ML SQ SCH (21:23)
[2021-10-09] MEDS ORDERED: Ringers Lactate 1,000 ML IV ONE (22:33)
[2021-10-09 22:51] VITALS: BMI 25.1
--- NOTE | 2021-10-09 23:54 | P.HP ---
Certification for Inpatient Patient admitted to: Observation With expected LOS: <2 Midnights Patient will require the following post-hospital care: None Practitioner: I am a practitioner with admitting privileges, knowledge of patient current condition, hospital course, and medical plan of care. Services: Services provided to patient in accordance with Admission requirements found in Title 42 Section 412.3 of the Code of Federal Regulations Patient History Date of Service: 10/09/21 Reason for admission: Dizziness, Nausea, Vomiting History of Present Illness: Patient is an 81-year-old male, Citizen Of [place]-speaking only, with past medical history of NIDDM, HLD, HTN, pacemaker who presented to the ED with complaints of lightheadedness, malaise, nausea and vomiting that began this morning. Patient states that his daughter usually prepares all of his food however was going out of town this week and had to meal prep all of his food so he could have eaten something that was bad. Labs within normal limits. CT abdomen pelvis negative. ED provider requested CT head and neck angio for dizziness however could not be completed after CT abdomen pelvis with contrast. Neurologic exam benign. ED provider wishes to admit patient for observation with CT head and neck angio in the morning. Allergies lisinop Allergy (Uncoded 07/29/17 00:30) Unknown NKDA Allergy (Uncoded 05/26/15 12:44) Unknown No Known Allergy (Uncoded 08/07/16 12:20) Unknown No Known All Allergy (Uncoded 10/23/15 11:25) Unknown No Known Allergies Allergy (Uncoded 11/03/17 11:59) Unknown Home medications list reviewed: Yes - Past Medical/Surgical History Has patient received pneumonia vaccine in the past: No Diabetic: Yes -: [id number] type 2 diabetes mellitus -: Hyperlipidemia -: Hypertension -: Pacemaker -: Appendectomy Psychosocial/ Personal History: Patient lives at home and his daughter helps take care of him. - Family History Family History: Reviewed- Non-Contributory - Social History Smoking Status: Never smoker Alcohol use: No CD- Drugs: No Caffeine use: No Place of Residence: Home Review of Systems General: Weakness, Malaise Gastrointestinal: Nausea, Vomiting Neurological: As per HPI Physical Examination - Vital Signs Temperature: 98.1 F Blood Pressure: 119/79 Pulse: 59 Respirations: 17 Pulse Ox (%): 97 - Physical Exam General: Alert, In no apparent distress, Oriented x3 HEENT: Atraumatic, PERRLA, EOMI, Sclerae nonicteric Neck: Supple, 2+ carotid pulse no bruit, No LAD, Without JVD or thyroid abnormality Respiratory: Clear to auscultation bilaterally, Normal air movement Cardiovascular: Regular rate/rhythm, Normal S1 S2 Gastrointestinal: Normal bowel sounds, No tenderness Musculoskeletal: No tenderness Integumentary: No rashes Neurological: Normal gait, Normal speech, Normal strength at 5/5 x4 extr, Normal tone, Sensation intact, Normal affect - Studies Laboratory Data (last 24 hrs) 10/09/21 15:45: WBC 7.8, Hgb 15.2, Hct 45.2, Plt Count 198 10/09/21 15:45: Sodium 143, Potassium 3.7, BUN 22 H, Creatinine 1.06, Glucose 111 H Assessment and Plan - Problems (Diagnosis) (1) Dizziness Current Visit: Yes Status: Acute (2) Intractable nausea and vomiting Current Visit: Yes Status: Acute (3) Type 2 diabetes mellitus Current Visit: Yes Status: Chronic Qualifiers: Diabetes mellitus intermediate manager insulin use: without care home use Diabetes mellitus complication status: without complication Qualified Code(s): E11.9 - Type 2 diabetes mellitus without complications (4) Hypertension Current Visit: No Status: Chronic Qualifiers: Hypertension type: primary hypertension Qualified Code(s): I10 - Essential (primary) hypertension (5) Hyperlipidemia Current Visit: No Status: Chronic Qualifiers: Hyperlipidemia type: unspecified Qualified Code(s): E78.5 - Hyperlipidemia, unspecified - Plan Clear liquid diet, advance as tolerated. Zofran as needed nausea. CT head/neck angio ordered for the morning to further evaluate source of dizziness if unresolved. Mild sliding scale insulin with ACHS Accu-Cheks and diabetic diet Obtain and continue home medications Neurologic checks Lovenox for DVT prophylaxis Discharge Plan: Home Plan to discharge in: 24 Hours - Advance Directives Does patient have a Living Will: No Does patient have a Durable POA for Healthcare: No - Code Status/Comfort Care Code Status Assessed: Yes (Full) Critical Care: No Time Spent Managing Pts Care (In Minutes): 70
[2021-10-10] MEDS ORDERED: LIDOCAINE VISCOUS 2% SOLN 15 ML UDC ONE (03:24)
[2021-10-10] MEDS: Ringers Lactate 1,000 ML IV SCH ×3 (07:23→22:13)
[2021-10-10] MEDS: INSULIN -REGULAR HUMAN 50 UNIT/0.5 ML ML SQ SCH ×4 (07:30→21:00)
--- NOTE | 2021-10-10 07:38 | EKG ---
Test Date: 2021-10-09 Test Time: 15:38:51 Negative Stripper: BP MEASUREMENT RESULTS: Intervals: Rate: 66 HI: 154 QRSD: 100 QT: 402 QTc: 421 Morrison: P: 54 HI: 154 QRS: 61 T: 23 INTERPRETIVE STATEMENTS: Sinus rhythm with occasional premature ventricular complexes Otherwise normal ECG Compared to ECG 02/01/2020 07:45:12 Ventricular premature complex(es) now present Sinus arrhythmia no longer present Electronically Signed On 10-10-21 07:37:02 CDT by Adam Anderson
--- NOTE | 2021-10-10 08:57 | RAD REPORT ---
EXAM DESCRIPTION: CT - Neck Angio - 10/10/2021 8:29 am CLINICAL HISTORY: dizziness TECHNIQUE: During dynamic enhancement using nonionic IV contrast, axial 2 mm thick images of the nec k were obtained. Sagittal and axial reconstruction images were generated using MIP technique and revi ewed. All CT scans are performed using dose optimization technique as appropriate and may include automated exposure control or mA/KV adjustment according to patient size. COMPARISON: CT head October 09 FINDINGS: No aneurysm or vascular malformation identified. No carotid dissection is present. No aor tic arch anomaly. Three-vessel aortic arch is seen. Calcifications are present at the left subclavian origin without stenosis. The subclavian arteries as imaged are unremarkable. Patient has dense calcifications in the left carotid bulb. Short-segment 30- 40% stenosis seen at the left bulb ICA junction. The remainder of the ICA shows tortuosity but no luminal narrowing or calcif ication. Dense right carotid bulb calcifications are present without stenosis. Right internal carotid artery s hows mild tortuosity but no atherosclerotic calcifications or focal abnormality. Vertebral artery origins are not well visualized. Left vertebral artery is dominant with a very small vertebral artery seen along its entire length. This makes assessment difficult. Right vertebral jackie ry appears to terminate prior to the basilar artery. No basilar artery abnormality seen. IMPRESSION: Left carotid bulb atherosclerotic calcifications with short-segment 30-40% stenosis at the bulb ICA junction. Right vertebral artery is small along its entire length with the left vertebral artery the dominant v essel. Small size makes assessment difficult. An acute right vertebral artery abnormality is unlikely but not entirely excluded.
[2021-10-10] MEDS: ENOXAPARIN 40 MG/0.4 ML SQ SCH (09:00)
--- NOTE | 2021-10-10 09:11 | RAD REPORT ---
EXAM DESCRIPTION: CT - Head angio - 10/10/2021 8:29 am CLINICAL HISTORY: dizziness, CVA TECHNIQUE: During dynamic enhancement using nonionic IV contrast, axial 1 millimeter thick images of the head were obtained. Sagittal and axial reconstruction images were generated using MIP technique and reviewed. All CT scans are performed using dose optimization technique as appropriate and may include automated exposure control or mA/KV adjustment according to patient size. COMPARISON: CT head same date FINDINGS: No aneurysm or vascular malformation identified. Major venous sinuses are patent. Anterior, middle and posterior cerebral artery distribution show no named branch occlusion, focal kirsten nosis or significant vascular finding. Anterior communicating artery is present. Basilar artery is unremarkable. Left vertebral artery is the dominant vessel. Distal right vertebral artery is difficult to visualize. The entire course of the right vertebral artery is small in size. A n acute distal vertebral artery finding is doubtful but not excluded. Petrous portions of the internal carotid arteries are unremarkable. Dense calcifications are seen in the distal cavernous and supraclinoid portions of each internal carotid artery resulting in 40-50% st enosis. IMPRESSION: Symmetric pattern of distal internal carotid artery atherosclerotic calcification and 4 0-50% stenosis. Dominant left vertebral artery with poorly visualized distal right vertebral artery. This is probably anatomic variation though distal right vertebral artery stenosis, dissection or acute process cannot be entirely excluded. Correlation is needed to determine if the patient has posterior fossa symptoms .
[2021-10-10] MEDS ORDERED: ENOXAPARIN 40 MG/0.4 ML SQ ONE (09:27)
[2021-10-10] MEDS ORDERED: Ringers Lactate 1,000 ML IV ONE (09:28)
[2021-10-10] MEDS ORDERED: PNEUMOCOCCAL VACCINE 0.5 ML IMVAC ONE (14:00)
--- NOTE | 2021-10-10 19:00 | P.PN ---
Subjective Date of Service: 10/10/21 Chief Complaint: Dizziness, Nausea, Vomiting Patient experiencing persistent dizziness. His blood pressure has been soft with systolic in the 90s to the low 100s. Physical Examination - Vital Signs Temperature: 98.1 F Blood Pressure: 101/63 Pulse: 64 Respirations: 16 Pulse Ox (%): 97 - Physical Exam General: In no apparent distress, Oriented x3 (Psychomotor retardation), Other HEENT: Mucous membr. moist/pink Neck: Supple, JVD not distended Respiratory: Clear to auscultation bilaterally, Normal air movement Cardiovascular: No edema, Regular rate/rhythm, Normal S1 S2, No murmurs Gastrointestinal: Soft and benign, Non-distended, No tenderness Musculoskeletal: No swelling, No tenderness Integumentary: No rashes, No cyanosis Neurological: Normal speech, Normal strength at 5/5 x4 extr, Cranial nerves 3-12 intact Assessment And Plan - Current Problems (Diagnosis) (1) Vertebrobasilar insufficiency Current Visit: Yes Status: Acute (2) Dizziness Current Visit: Yes Status: Acute (3) Intractable nausea and vomiting Current Visit: Yes Status: Acute (4) Type 2 diabetes mellitus Current Visit: Yes Status: Chronic Qualifiers: Diabetes mellitus marine oil terminal superintendent insulin use: without marine oil terminal superintendent use Diabetes mellitus complication status: without complication Qualified Code(s): E11.9 - Type 2 diabetes mellitus without complications (5) Hyperlipidemia Current Visit: No Status: Chronic Qualifiers: Hyperlipidemia type: unspecified Qualified Code(s): E78.5 - Hyperlipidemia, unspecified (6) Hypertension Current Visit: No Status: Chronic Qualifiers: Hypertension type: primary hypertension Qualified Code(s): I10 - Essential (primary) hypertension - Plan Patient with persistent debilitating dizziness, wobbly gait, intermittent altered mental status making him high risk for falls at the moment. He is unsafe to discharge. We will keep him as inpatient. CTA head and neck results reviewed with neurology-Dr. Diaz. 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 Symptoms exacerbated by borderline low blood pressure. We will discontinue his antihypertensives. Hydrate with normal saline. PT to evaluate. Diet as tolerated Patient had an episode of hypoglycemia this morning. Hold glipizide and metformin. Fingerstick glucose monitoring.
[2021-10-10 19:22] VITALS: O2SAT 97
[2021-10-10] MEDS: carvediloL 12.5 MG TAB PO SCH (22:02)
[2021-10-10] MEDS: METFORMIN HCL 500 MG TAB PO SCH (22:13)
[2021-10-11] MEDS: Ringers Lactate 1,000 ML IV SCH ×2 (03:23→13:23)
[2021-10-11 05:47] LABS: Urine Appearance Clear (Clear); Urine Bilirubin Negative (Negative); Urine Blood Negative (Negative); Urine Color Yellow (Yellow); Urine Glucose Negative (Negative); Urine Protein Negative (Negative); Urine Specific Gravity 1.015 (1.005-1.030)
[2021-10-11 05:50] LABS: Urine Microscopic Reflex ORDER UMIC
[2021-10-11 05:57] LABS: Absolute Lymphocytes (CBC) 2.3 K/uL (0.7-4.9); Hematocrit 44.1 % (39.6-49.0); Lymphocytes % 30.6 % (15.3-44.8); MPV 9.2 fL (7.6-11.3); RBC Red Blood Cell Count 4.69 M/uL (4.33-5.43)
[2021-10-11 05:59] LABS: Urine Bacteria 20-50 /HPF (NONE SEEN); Urine Mucus 1+ /HPF (NONE SEEN); Urine RBC <5 /HPF (NONE SEEN)
[2021-10-11] MEDS: INSULIN -REGULAR HUMAN 50 UNIT/0.5 ML ML SQ SCH ×3 (07:30→16:30)
[2021-10-11] MEDS: carvediloL 12.5 MG TAB PO SCH (08:44)
[2021-10-11] MEDS: METFORMIN HCL 500 MG TAB PO SCH (08:45)
[2021-10-11] MEDS: ENOXAPARIN 40 MG/0.4 ML SQ SCH (08:48)
[2021-10-11] MEDS ORDERED: GLIMEPIRIDE 2 MG TABLET PO SCH (09:00)
[2021-10-11] MEDS ORDERED: lisinopriL 5 MG TAB PO SCH (09:00)
[2021-10-11 12:55] VITALS: TEMP 98
--- NOTE | 2021-10-11 16:18 | P.DS ---
Admission Date: 10/09/21 Discharge Date: 10/11/21 Reason for Admission: Dizziness, Nausea, Vomiting - Problems (1) Vertebrobasilar insufficiency Current Visit: Yes Status: Acute (2) Dizziness Current Visit: Yes Status: Acute (3) Intractable nausea and vomiting Current Visit: Yes Status: Acute (4) Type 2 diabetes mellitus Current Visit: Yes Status: Chronic Qualifiers: Diabetes mellitus mcfp insulin use: without intermediate manager use Diabetes mellitus complication status: without complication Qualified Code(s): E11.9 - Type 2 diabetes mellitus without complications (5) Hyperlipidemia Current Visit: No Status: Chronic Qualifiers: Hyperlipidemia type: unspecified Qualified Code(s): E78.5 - Hyperlipidemia, unspecified (6) Hypertension Current Visit: No Status: Chronic Qualifiers: Hypertension type: primary hypertension Qualified Code(s): I10 - Essential (primary) hypertension Brief History of Present Illness: Patient is an 81-year-old male, [place]-speaking only, with past medical history of NIDDM, HLD, HTN, pacemaker who presented to the ED with complaints of lightheadedness, malaise, nausea and vomiting. Labs within normal limits. CT abdomen pelvis negative. ED provider requested CT head and neck angio for dizziness however this could not be completed after CT abdomen pelvis with contrast. Neurologic exam benign. Patient placed on observation for further evaluation. Hospital Course: Patient's dizziness noted to be related to changes in his blood pressure. CTA head and neck results reviewed with neurology-Dr. Diaz. 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 Symptoms exacerbated by borderline low blood pressure. His antihypertensives were held and patient hydrated with normal saline. He had an episode of hypoglycemia. Glimepiride was held and never given during the hospital stay. Patient's son reports he has poor oral intake. Glimepiride discontinued on discharge. Patient seen and evaluated by PT. He was able to ambulate 250 ft without a walker but unsteady gait noted. Also noted pill rolling resting tremor indicative of Parkinson's disease. Patient seen and evaluated by neurology-Dr. Diaz. His dizziness also suspected to be related to autonomic dysfunction with orthostasis from Parkinson's. Orthostatic precautions advised. Dr. Diaz recommended starting Sinemet. Patient tolerated diet. Systolic blood pressure in the 120s to 130s at this time. Patient deemed stable for discharge. Vital Signs/Physical Exam: Temp Pulse Resp BP Pulse Ox 98.0 F 60 16 128/65 97 10/11/21 12:00 10/11/21 12:00 10/11/21 12:00 10/11/21 12:00 10/11/21 12:00 General: Alert, In no apparent distress, Oriented x3 HEENT: Mucous membr. moist/pink Neck: 2+ carotid pulse no bruit, JVD not distended Respiratory: Clear to auscultation bilaterally, Normal air movement Cardiovascular: No edema, Regular rate/rhythm, Normal S1 S2 Gastrointestinal: Soft and benign, Non-distended, No tenderness Musculoskeletal: No swelling Integumentary: No rashes Neurological: Normal speech, Normal strength at 5/5 x4 extr Laboratory Data at Discharge: WBC 7.6 K/uL (4.3-10.9) 10/11/21 05:20 Hgb 14.9 g/dL (13.6-17.9) 10/11/21 05:20 Hct 44.1 % (39.6-49.0) 10/11/21 05:20 Plt Count 155 K/uL (152-406) D 10/11/21 05:20 Sodium 140 mmol/L (136-145) 10/11/21 05:20 Potassium 4.0 mmol/L (3.5-5.1) 10/11/21 05:20 BUN 11 mg/dL (7-18) 10/11/21 05:20 Creatinine 0.77 mg/dL (0.55-1.3) 10/11/21 05:20 Glucose 71 mg/dL (74-106) L 10/11/21 05:20 Home Medications: Glimepiride 4 mg PO DAILY 10/10/21 Metformin HCl 1,000 mg PO BID 10/10/21 Carbidopa/Levodopa [Sinemet 25-100 mg Tablet] 1 each PO Q8H #90 tablet 10/11/21 Glimepiride [Amaryl*] 2 mg PO DAILY #30 tab 10/11/21 New Medications: Glimepiride [Amaryl*] 2 mg PO DAILY #30 tab Carbidopa/Levodopa [Sinemet 25-100 mg Tablet] 1 each PO Q8H #90 tablet Followup: NONE,NONE [Primary Care Provider] -
[2021-10-11 16:19] VITALS: BP 120/52
== END 2021-10-11 19:24 | disposition home health service (06) ==
LOC: ER 15:16 → ERHOLD 20:12 → 2ND 10-10 18:32
PROVIDERS: ADMIT Internal Medicine; ATTEND Internal Medicine
DX: I95.9 Hypotension, unspecified (principal); E11.649 Type 2 diabetes mellitus with hypoglycemia without coma; R11.2 Nausea with vomiting, unspecified; E78.5 Hyperlipidemia, unspecified; I10 Essential (primary) hypertension; R26.81 Unsteadiness on feet; Z95.0 Presence of cardiac pacemaker; Z88.8 Allergy status to other drugs, medicaments and biological substances; Z20.822 Contact with and (suspected) exposure to COVID-19
CPT/HCPCS: 93005; 87088; 85025 ×2; 87086; 80048 ×2; 36415 ×2; 82947 ×9; 84484; 83880; 70450; 70496; 70498; 74177; 71045; 97116; 97161; 97530 ×2; 96374; 99285; U0003; Q9967 ×2; J1650 ×2; J7120 ×4; J2405; G0378 ×4; 81003; 81015